=== PATIENT | female | born 1995 | race Caucasian/White ===

== ENCOUNTER 2016-12-16 12:19 | Emergency (ER) | payer SELFPAY ==
[2016-12-16] MEDS ORDERED: METOCLOPRAMIDE HCL 10 MG TABLET PO ONE (12:29)
--- NOTE | 2016-12-16 12:29 | ER Document Report ---
ED Medical Screen (RME) - General Stated Complaint: VOMITING Time seen by provider: 12:27 Mode of Arrival: Ambulatory Information source: Patient Notes: 21-year-old female presents to ED for vomiting hot and cold, and denies fever for 2-3 weeks. Last menstrual period 10/25/2017 I have greeted and performed a rapid initial assessment of this patient. A comprehensive ED assessment and evaluation of the patient, analysis of test results and completion of medical decision making process will be conducted by an additional ED providers. Physical Exam - Vital signs Vitals: Temp Pulse Resp BP Pulse Ox 97.9 F 65 16 116/63 100 12/16/16 12:25 12/16/16 12:25 12/16/16 12:25 12/16/16 12:25 12/16/16 12:25 Course - Vital Signs Vital signs: Temp Pulse Resp BP Pulse Ox 97.9 F 65 16 116/63 100 12/16/16 12:25 12/16/16 12:25 12/16/16 12:25 12/16/16 12:25 12/16/16 12:25
[2016-12-16 13:07] LABS: ABSOLUTE BASOPHILS # (AUTO) 0.1 10^3/uL (0.0-0.2); ABSOLUTE EOSINOPHILS # (AUTO) 0.1 10^3/uL (0.0-0.6); ABSOLUTE LYMPHOCYTES (AUTO) 1.3 10^3/uL (0.5-4.7); ABSOLUTE MONOCYTES (AUTO) 0.5 10^3/uL (0.1-1.4); ABSOLUTE NEUT (AUTO) 4.6 10^3/uL (1.7-8.2); BASOPHILS % (AUTO) 0.9 % (0-2); EOSINOPHILS % (AUTO) 1.7 % (0-6); HEMOGLOBIN 12.4 g/dL (12.0-15.5); HGB HCT DIFFERENCE -0.8; MEAN CORPUSCULAR HEMOGLOBIN 27.5 pg (27.0-33.4); MEAN CORPUSCULAR HGB CONC 32.5 g/dL (32.0-36.0); MEAN CORPUSCULAR VOLUME 84 fl (80-97); MONOCYTES % (AUTO) 7.8 % (3-13); RED CELL DISTRIBUTION WIDTH 14.8 % (11.5-14.0); SEGMENTED NEUTROPHILS % (AUTO) 69.6 % (42-78); WHITE BLOOD COUNT 6.6 10^3/uL (4.0-10.5)
[2016-12-16 13:21] LABS: APPEARANCE,URINE SLIGHTLY-CLOUDY; BILIRUBIN,URINE NEGATIVE (NEGATIVE); GLUCOSE, URINE NEGATIVE (NEGATIVE); KETONES,URINE TRACE mg/dL (NEGATIVE); LEUKOCYTE ESTERASE,URINE SMALL (NEGATIVE); NITRITE,URINE POSITIVE (NEGATIVE); PROTEIN,URINE NEGATIVE (NEGATIVE); URINE SPECIFIC GRAVITY 1.017
[2016-12-16 13:22] LABS: ALANINE AMINOTRANSFERASE 21 U/L (9-52); ALBUMIN 3.5 g/dL (3.5-5.0); ALKALINE PHOSPHATASE 52 U/L (38-126); ANION GAP 8 (5-19); ASPARTATE AMINO TRANSFERASE 15 U/L (14-36); BILIRUBIN,TOTAL 0.5 mg/dL (0.2-1.3); BLOOD UREA NITROGEN 5 mg/dL (7-20); CALCIUM 9.8 mg/dL (8.4-10.2); CARBON DIOXIDE 25 mmol/L (22-30); CHLORIDE 105 mmol/L (98-107); CREATININE RESULT 0.77 mg/dL (0.52-1.25); GLUCOSE 78 mg/dL (75-110); POTASSIUM 3.9 mmol/L (3.6-5.0); SODIUM 138.2 mmol/L (137-145); TOTAL PROTEIN 6.2 g/dL (6.3-8.2)
[2016-12-16] MEDS ORDERED: NITROFURANTOIN MONOHYD/M-CRYST 100 MG CAPSULE PO ONE (13:23)
--- NOTE | 2016-12-16 13:31 | ER Document Report ---
ED General - General Chief Complaint: Nausea/Vomiting Stated Complaint: VOMITING Mode of Arrival: Ambulatory Information source: Patient Notes: 21-year-old female presents with complaints of nausea vomiting every time she eats. pt denies any urinary complaints, denies any fevers or chills. TRAVEL OUTSIDE OF THE [place] IN LAST 30 DAYS: No - HPI Onset: Other - 2-3 weeks Onset/Duration: Persistent Quality of pain: Cramping Severity: Mild Pain Level: 1 Associated symptoms: Nausea, Vomiting Exacerbated by: Denies Relieved by: Denies Similar symptoms previously: No Recently seen / treated by doctor: No - Related Data Allergies/Adverse Reactions: acetaminophen [From Tylenol] Allergy (Verified 12/16/16 12:29) Past Medical History - General Information source: Patient - Social History Smoking Status: Current Every Day Smoker Cigarette use (# per day): Yes Chew tobacco use (# tins/day): No Smoking Education Provided: Yes - Patient counselled regarding cessation for 4 minutes Frequency of alcohol use: None Drug Abuse: None Family History: Reviewed & Not Pertinent Patient has suicidal ideation: No Patient has homicidal ideation: No Pulmonary Medical History: Reports: Hx Asthma Renal/ Medical History: Denies: Hx Peritoneal Dialysis Past Surgical History: Reports: Hx Orthopedic Surgery - CO[facility]YX Review of Systems - Review of Systems Notes: REVIEW OF SYSTEMS: CONSTITUTIONAL : Denies fever, chills, or sweats. Denies recent illness. EENT: Denies eye, ear, throat, or mouth pain or symptoms. Denies nasal or sinus congestion or discharge. Denies throat, tongue, or mouth swelling or difficulty swallowing. CARDIOVASCULAR: Denies chest pain. Denies palpitations or racing or irregular heart beat. Denies ankle edema. RESPIRATORY: Denies cough, cold, or chest congestion. Denies shortness of breath, difficulty breathing, or wheezing. GASTROINTESTINAL: admits ot abd strickland, nausea vomtiing GENITOURINARY: Denies difficulty urinating, painful urination, burning, frequency, blood in urine, or discharge. FEMALE GENITOURINARY: Denies vaginal bleeding, heavy or abnormal periods, irregular periods. Denies vaginal discharge or odor. MUSCULOSKELETAL: Denies back or neck pain or stiffness. Denies joint pain or swelling. SKIN: Denies rash, lesions or sores. HEMATOLOGIC : Denies easy bruising or bleeding. LYMPHATIC: Denies swollen, enlarged glands. NEUROLOGICAL: Denies confusion or altered mental status. Denies passing out or loss of consciousness. Denies dizziness or lightheadedness. Denies headache. Denies weakness or paralysis or loss of use of either side. Denies problems with gait or speech. Denies sensory loss, numbness, or tingling. Denies seizures. PSYCHIATRIC: Denies anxiety or stress. Denies depression, suicidal ideation, or homicidal ideation. ALL OTHER SYSTEMS REVIEWED AND NEGATIVE. Dictation was performed using [employer] voice recognition software PHYSICAL EXAMINATION: GENERAL: Well-appearing, well-nourished and in no acute distress. HEAD: Atraumatic, normocephalic. EYES: Pupils equal round and reactive to light, extraocular movements intact, conjunctiva are normal. ENT: Nares patent, oropharynx clear without exudates. Moist mucous membranes. NECK: Normal range of motion, supple without lymphadenopathy LUNGS: Breath sounds clear to auscultation bilaterally and equal. No wheezes rales or rhonchi. HEART: Regular rate and rhythm without murmurs ABDOMEN: Soft, nontender, nondistended abdomen. No guarding, no rebound. No masses appreciated. Female : deferred Musculoskeletal: Normal range of motion, no pitting or edema. No cyanosis. NEUROLOGICAL: Cranial nerves grossly intact. Normal speech, normal gait. Normal sensory, motor exams PSYCH: Normal mood, normal affect. SKIN: Warm, Dry, normal turgor, no rashes or lesions noted. Physical Exam - Vital signs Vitals: Temp Pulse Resp BP Pulse Ox 97.9 F 65 16 116/63 100 12/16/16 12:25 12/16/16 12:25 12/16/16 12:25 12/16/16 12:25 12/16/16 12:25 Course - Re-evaluation Re-evalutation: 12/16/16 15:29 pt looks well but noted ot have UTI in , culture ordered, pt started on macrobid, us pending 12/16/16 16:23 Ultrasound consistent with 6 week 5 day . Patient will be discharged home with prenatals smoking cessation follow-up with [facility] After performing a Medical Screening Examination, I estimate there is LOW risk for ACUTE APPENDICITIS, BOWEL OBSTRUCTION, ACUTE CHOLECYSTITIS, PERFORATED DIVERTICULITIS, INCARCERATED HERNIA, PANCREATITIS, PELVIC INFLAMMATORY DISEASE, PERFORATED ULCER, ECTOPIC , or TUBO-OVARIAN ABSCESS, thus I consider the discharge disposition reasonable. Also, there is no evidence or peritonitis , sepsis, or toxicity. The patient and I have discussed the diagnosis and risks , and we agree with discharging home with close follow-up with the understanding that symptoms and presentations can change. We also discussed returning to the Emergency Department immediately if new or worsening symptoms occur. We have discussed the symptoms which are most concerning (e.g., bloody stool, fever, changing or worsening pain, vomiting) that necessitate immediate return. - Vital Signs Vital signs: Temp Pulse Resp BP Pulse Ox 97.9 F 65 16 116/63 100 12/16/16 12:25 12/16/16 12:25 12/16/16 12:25 12/16/16 12:25 12/16/16 12:25 - Laboratory Result Diagrams: 12/16/16 12:40 12/16/16 12:40 Laboratory results interpreted by me: 12/16/16 12/16/16 12/16/16 12:40 12:40 12:40 RDW 14.8 H BUN 5 L Total Protein 6.2 L Serum HCG, Qual POSITIVE H Beta HCG, Quant Urine Ketones Urine Nitrite Urine Urobilinogen Ur Leukocyte Esterase 12/16/16 12/16/16 12:40 12:40 RDW BUN Total Protein Serum HCG, Qual Beta HCG, Quant 11523.00 H Urine Ketones TRACE H Urine Nitrite POSITIVE H Urine Urobilinogen 2.0 H Ur Leukocyte Esterase SMALL H - Diagnostic Test Radiology reviewed: Image reviewed, Reports reviewed Discharge - Discharge Clinical Impression: Encounter for smoking cessation counseling, Nausea/vomiting in , UTI in Condition: Stable Disposition: HOME, SELF-CARE Instructions: Urinary Tract Infection ([facility]) Prescriptions: Promethazine HCl [Phenergan 25 mg Tablet] 25 - 50 mg PO Q4HP PRN #20 tablet PRN Reason: Nitrofurantoin/Nitrofuran Mac [Macrobid 100 mg Capsule] 1 tab PO BID #20 capsule Forms: Smoking Cessation Education Referrals: [facility] [Provider Group] - Follow up tomorrow
[2016-12-16 16:42] VITALS: BP 113/61
== END 2016-12-16 16:41 | disposition home or self-care (01) ==
LOC: ER 12:19
DX: O21.9 Vomiting of pregnancy, unspecified (principal); O99.330 Smoking (tobacco) complicating pregnancy, unspecified trimester; F17.210 Nicotine dependence, cigarettes, uncomplicated; Z71.6 Tobacco abuse counseling; O99.519 Diseases of the respiratory system complicating pregnancy, unspecified trimester; J45.909 Unspecified asthma, uncomplicated; O23.40 Unspecified infection of urinary tract in pregnancy, unspecified trimester; O26.899 Other specified pregnancy related conditions, unspecified trimester; R10.9 Unspecified abdominal pain; Z3A.00 Weeks of gestation of pregnancy not specified; Z88.6 Allergy status to analgesic agent
CPT/HCPCS: 99406; 99284; 36415; 87086; 84702; 84703; 85025; 87088; 80053; 81001; 76817; J8499; 87186

== ENCOUNTER 2017-02-17 15:48 | Emergency (ER) | payer SELFPAY ==
--- NOTE | 2017-02-17 16:37 | ER Document Report ---
ED Medical Screen (RME) - General Stated Complaint: ABDOMINAL PAIN Notes: Patient complains of body aches and abdominal cramping that started this morning. Patient states she is 16 weeks . Patient states she had spotting last week which has resolved. She contacted the health department and they told her to follow up with them if it continued. Denies fever. Patient complains of nausea, denies vomiting or diarrhea. I have greeted and performed a rapid initial assessment of this patient. A comprehensive ED assessment and evaluation of the patient, analysis of test results and completion of the medical decision making process will be conducted by additional ED providers. TRAVEL OUTSIDE OF THE [place] IN LAST 30 DAYS: No - Related Data Allergies/Adverse Reactions: acetaminophen [From Tylenol] Allergy (Verified 02/17/17 16:36) Past Medical History Pulmonary Medical History: Reports: Hx Asthma Renal/ Medical History: Denies: Hx Peritoneal Dialysis Past Surgical History: Reports: Hx Orthopedic Surgery - COCCYX Physical Exam - Respiratory Respiratory status: No respiratory distress Breath sounds: Normal
[2017-02-17 17:10] LABS: ABSOLUTE MONOCYTES (AUTO) 0.6 10^3/uL (0.1-1.4); BASOPHILS % (AUTO) 0.2 % (0-2); EOSINOPHILS % (AUTO) 0.5 % (0-6); HEMATOCRIT 31.8 % (36.0-47.0); HGB HCT DIFFERENCE 1.2; LYMPHOCYTES % (AUTO) 11.1 % (13-45); MEAN CORPUSCULAR HEMOGLOBIN 28.7 pg (27.0-33.4); MEAN CORPUSCULAR HGB CONC 34.7 g/dL (32.0-36.0); MEAN CORPUSCULAR VOLUME 83 fl (80-97); MONOCYTES % (AUTO) 7.2 % (3-13); RED BLOOD COUNT 3.85 10^6/uL (3.72-5.28); RED CELL DISTRIBUTION WIDTH 13.9 % (11.5-14.0); WHITE BLOOD COUNT 8.7 10^3/uL (4.0-10.5)
[2017-02-17 17:32] LABS: ALANINE AMINOTRANSFERASE 17 U/L (9-52); ALBUMIN 3.8 g/dL (3.5-5.0); ALKALINE PHOSPHATASE 49 U/L (38-126); ANION GAP 11 (5-19); ASPARTATE AMINO TRANSFERASE 12 U/L (14-36); BILIRUBIN,DIRECT 0.1 mg/dL (0.0-0.4); BILIRUBIN,TOTAL 0.5 mg/dL (0.2-1.3); BLOOD UREA NITROGEN 3 mg/dL (7-20); CARBON DIOXIDE 21 mmol/L (22-30); CHLORIDE 106 mmol/L (98-107); CREATININE RESULT 0.52 mg/dL (0.52-1.25); GLUCOSE 76 mg/dL (75-110); LIPASE 38.4 U/L (23-300); POTASSIUM 3.9 mmol/L (3.6-5.0); SODIUM 137.6 mmol/L (137-145); TOTAL PROTEIN 6.6 g/dL (6.3-8.2)
[2017-02-17 17:37] LABS: APPEARANCE,URINE SLIGHTLY-CLOUDY; BILIRUBIN,URINE NEGATIVE (NEGATIVE); GLUCOSE, URINE NEGATIVE (NEGATIVE); KETONES,URINE 20 mg/dL (NEGATIVE); LEUKOCYTE ESTERASE,URINE SMALL (NEGATIVE); NITRITE,URINE NEGATIVE (NEGATIVE); PROTEIN,URINE NEGATIVE (NEGATIVE)
[2017-02-17] MEDS ORDERED: NORMAL SALINE 1000 ML 1,000 ML IV ONE (22:20)
[2017-02-18] MEDS ORDERED: CEPHALEXIN 500 MG CAPSULE PO ONE (00:23)
--- NOTE | 2017-02-18 00:31 | ER Document Report ---
ED General - General Chief Complaint: Abdominal Pain Stated Complaint: ABDOMINAL PAIN Mode of Arrival: Ambulatory Information source: Patient Notes: 21 y/o F presents to ED c/o generalized body aches, mid lower abd pain, and lower back pain since this morning. Pt reports is approximately 16 wks , G1, LMP 10/25/16. Reports had light vaginal spotting for 1 day last week that has resolved. Reports symptoms began this morning with generalized body aches and subsequent development of lower abd/suprapubic pain that radiates to her back. Denies dysuria but states pain seems to be worse with urination. Denies fever, vaginal discharge, n/v, chest pain, sob. TRAVEL OUTSIDE OF THE [place] IN LAST 30 DAYS: No - HPI Onset: This morning Onset/Duration: Persistent Quality of pain: Achy Severity: Mild Pain Level: 2 Associated symptoms: Body/muscle aches Similar symptoms previously: Yes Recently seen / treated by doctor: No - Related Data Allergies/Adverse Reactions: acetaminophen [From Tylenol] Allergy (Verified 02/17/17 16:36) Past Medical History - General Information source: Patient - Social History Smoking Status: Never Smoker Chew tobacco use (# tins/day): No Frequency of alcohol use: None Drug Abuse: None Lives with: Family Family History: Reviewed & Not Pertinent Patient has suicidal ideation: No Patient has homicidal ideation: No Pulmonary Medical History: Reports: Hx Asthma Renal/ Medical History: Denies: Hx Peritoneal Dialysis Past Surgical History: Reports: Hx Orthopedic Surgery - COCCYX - Immunizations Hx Diphtheria, Pertussis, Tetanus Vaccination: Yes Review of Systems - Review of Systems Constitutional: See HPI EENT: No symptoms reported Cardiovascular: No symptoms reported Respiratory: No symptoms reported Gastrointestinal: No symptoms reported Genitourinary: See HPI Female Genitourinary: See HPI Musculoskeletal: No symptoms reported Skin: No symptoms reported Hematologic/Lymphatic: No symptoms reported Neurological/Psychological: No symptoms reported -: Yes All other systems reviewed and negative Physical Exam - Vital signs Vitals: Temp Pulse Resp BP Pulse Ox 99.1 F 102 H 16 109/62 100 02/17/17 16:34 02/17/17 16:34 02/17/17 16:34 02/17/17 16:34 02/17/17 16:34 - General General appearance: Appears well, Alert In distress: None - HEENT Head: Normocephalic, Atraumatic Eyes: Normal Conjunctiva: Normal Pupils: PERRL Ears: Normal External canal: Normal Tympanic membrane: Normal Sinus: Normal Nasal: Normal Mouth/Lips: Normal Mucous membranes: Normal, Moist Pharynx: Normal. No: Blood in hypopharynx, Erythema, Exudate, Peritonsillar abscess, Post nasal drainage, Retropharyngeal abscess, Tonsillar hypertrophy, Uvular edema, Potential airway comprom., Other Neck: Normal. No: Anterior cervical chain, Posterior cervical chain, Lymphadenopathy, Meningismus, Subcutaneous emphysema - Respiratory Respiratory status: No respiratory distress Chest status: Nontender Breath sounds: Normal - CTAB Chest palpation: Normal - Cardiovascular Rhythm: Regular Heart sounds: Normal auscultation Murmur: No Pulses: Normal: Radial, Posterior tibial, Dorsalis pedis Normal capillary refill: Yes - Abdominal Inspection: Normal Distension: No distension Bowel sounds: Normal Tenderness: Tender - mild tenderness with palpation to mid-lower abd/supraubic area.. No: Nontender, McBurney's point, Johnson's sign, Guarding, Rebound, Other Organomegaly: No organomegaly - Back Back: Normal, Nontender. No: CVA tenderness - Extremities General upper extremity: Normal inspection, Nontender, Normal color, Normal ROM , Normal strength, Normal temperature General lower extremity: Normal inspection, Nontender, Normal color, Normal ROM , Normal strength, Normal temperature, Normal weight bearing - Neurological Neuro grossly intact: Yes Cognition: Normal Orientation: AAOx4 Raj Coma Scale Eye Opening: Spontaneous Raj Coma Scale Verbal: Oriented [place] Coma Scale Motor: Obeys Commands Raj Coma Scale Total: 15 Speech: Normal Motor strength normal: LUE, RUE, LLE, RLE Sensory: Normal - Skin Skin Temperature: Warm Skin Moisture: Dry Skin Color: Normal Course - Re-evaluation Re-evalutation: 02/18/17 00:45 Patient hemodynamically stable, in no distress, afebrile. Patient is well- appearing and physical exam is not suggestive of emergent abdominal or infectious etiology at this time. Ultrasound shows living intrauterine at 16 weeks gestation with no significant abnormalities. Leukocyte Estrace and wbc's on UA. Urine culture obtained. Will treat for likely UTI. Patient appears stable for discharge and agrees with home care, follow-up, and ED return precautions. - Vital Signs Vital signs: Temp Pulse Resp BP Pulse Ox 99.1 F 102 H 16 109/63 100 02/18/17 01:22 02/18/17 01:22 02/18/17 01:22 02/18/17 01:22 02/18/17 01:22 - Laboratory Result Diagrams: 02/17/17 16:50 02/17/17 16:50 Laboratory results interpreted by me: 02/17/17 02/17/17 02/17/17 16:50 16:50 16:50 Hgb 11.0 L Hct 31.8 L Seg Neutrophils % 81.0 H Lymphocytes % 11.1 L Carbon Dioxide 21 L BUN 3 L AST 12 L Beta HCG, Quant 84750.00 H Urine Ketones 20 H Urine Urobilinogen 2.0 H Ur Leukocyte Esterase SMALL H - Diagnostic Test Radiology reviewed: Image reviewed, Reports reviewed Discharge - Discharge Clinical Impression: Pelvic pain affecting , antepartum UTI (urinary tract infection) Qualifiers: Urinary tract infection type: site unspecified Hematuria presence: without hematuria Qualified Code(s): N39.0 - Urinary tract infection, site not specified Condition: Stable Disposition: HOME, SELF-CARE Instructions: Abdominal Pain ([facility]), Acetaminophen, Observation for Appendicitis ([facility]), Urinary Tract Infection ([facility]), Nitrofurantoin ([facility]) Additional Instructions: A culture of your urine has been obtained. If bacterial growth is noted that requires a change in your antibiotic regimen you will be contacted within 2 days with instructions on treatment. If you do not receive a call, please call back for results. Drink plenty of fluids. Follow-up with your [facility] this week. Return to the Emergency Department for any worsening symptoms or concerns. Prescriptions: Nitrofurantoin/Nitrofuran Mac [Macrobid 100 mg Capsule] 1 tab PO BID #20 capsule Forms: Return to Work Referrals: [facility] [Provider Group] - Follow up tomorrow
[2017-02-18] MEDS ORDERED: NITROFURANTOIN MONOHYD/M-CRYST 100 MG CAPSULE PO ONE (01:10)
[2017-02-18 01:29] VITALS: BP 109/63
== END 2017-02-18 01:38 | disposition home or self-care (01) ==
LOC: ER 15:48
DX: N39.0 Urinary tract infection, site not specified (principal); R10.2 Pelvic and perineal pain; R10.9 Unspecified abdominal pain; R52 Pain, unspecified; R10.30 Lower abdominal pain, unspecified; M54.5 Low back pain; Z3A.16 16 weeks gestation of pregnancy
CPT/HCPCS: 99284; 36415; 87086; 84702; 83690; 85025; 87088; 80053; 81001; 87186; 87804; 76805; 93976; J7030; J8499

== ENCOUNTER 2017-03-11 16:07 | Observation (INO) | payer SELFPAY ==
[2017-03-11] MEDS ORDERED: PROMETHAZINE HCL 25 MG TABLET PO PRN (16:53)
[2017-03-11] MEDS: RINGERS SOLUTION,LACTATED 1,000 ML IV PRN (17:55)
[2017-03-11] MEDS: OXYCODONE HCL IR 5 MG TABLET PO PRN (17:55)
[2017-03-11] MEDS: CEFTRIAXONE 1 GM/D5W RTU 1 GM/50 ML RTUPB IV SCH (17:56)
[2017-03-11 18:55] LABS: HEMOGLOBIN 9.2 g/dL (12.0-15.5); HGB HCT DIFFERENCE 0.6; MEAN CORPUSCULAR HEMOGLOBIN 27.7 pg (27.0-33.4); MEAN CORPUSCULAR VOLUME 81 fl (80-97); RED BLOOD COUNT 3.32 10^6/uL (3.72-5.28); RED CELL DISTRIBUTION WIDTH 14.1 % (11.5-14.0); WHITE BLOOD COUNT 11.2 10^3/uL (4.0-10.5)
[2017-03-11 19:14] LABS: ALANINE AMINOTRANSFERASE 22 U/L (9-52); ALBUMIN 3.4 g/dL (3.5-5.0); ALKALINE PHOSPHATASE 64 U/L (38-126); ANION GAP 11 (5-19); ASPARTATE AMINO TRANSFERASE 13 U/L (14-36); BILIRUBIN,DIRECT 0.2 mg/dL (0.0-0.4); BILIRUBIN,TOTAL 0.4 mg/dL (0.2-1.3); BLOOD UREA NITROGEN 3 mg/dL (7-20); CALCIUM 9.7 mg/dL (8.4-10.2); CARBON DIOXIDE 22 mmol/L (22-30); CHLORIDE 103 mmol/L (98-107); CREATININE RESULT 0.47 mg/dL (0.52-1.25); GLUCOSE 92 mg/dL (75-110); POTASSIUM 3.9 mmol/L (3.6-5.0); SODIUM 136.4 mmol/L (137-145); TOTAL PROTEIN 6.6 g/dL (6.3-8.2)
[2017-03-11 20:42] LABS: APPEARANCE,URINE CLEAR; BILIRUBIN,URINE NEGATIVE (NEGATIVE); GLUCOSE, URINE NEGATIVE (NEGATIVE); KETONES,URINE NEGATIVE (NEGATIVE); LEUKOCYTE ESTERASE,URINE LARGE (NEGATIVE); NITRITE,URINE NEGATIVE (NEGATIVE); PROTEIN,URINE NEGATIVE (NEGATIVE); UROBILINOGEN,URINE NEGATIVE mg/dL (<2.0)
--- NOTE | 2017-03-11 22:27 | PDOC H&P ---
History of Present Illness Admission Date/PCP: 03/11/17 16:07 Patient complains of: severe UTI sxs x 2 wks. flank pain. fever. some nausea. no vomiting History of Present Illness: KALPANA NARAYAN is a 21 year old female Past Medical History Pulmonary Medical History: Reports: Asthma Psychiatric Medical History: Denies: Depression Past Surgical History Past Surgical History: Reports: Orthopedic Surgery - [facility]YX Social History Information Source: Patient Smoking Status: Former Smoker Last Time Smoked: 11/23/2016 Frequency of Alcohol Use: None Hx Recreational Drug Use: Yes Drugs: Marijuana Hx Prescription Drug Abuse: No Family History Family History: Reviewed & Not Pertinent Parental Family History Reviewed: Yes Children Family History Reviewed: NA Sibling(s) Family History Reviewed.: Yes Medication/Allergy Home Medications: Nitrofurantoin/Nitrofuran Mac [Macrobid 100 mg Capsule] 1 tab PO BID #20 capsule 12/16/16 Vit W-Ca,Fe,FA(<1 mg) [ Vitamins] 1 each PO DAILY #90 tablet Promethazine HCl [Phenergan 25 mg Tablet] 25 - 50 mg PO Q4HP PRN #20 tablet Allergies/Adverse Reactions: acetaminophen [From Tylenol] Allergy (Verified 02/17/17 16:36) Physical Exam - Physical Exam Vital Signs: Temp Pulse Resp BP Pulse Ox 98.6 F 109 H 18 105/54 L 100 03/11/17 19:45 03/11/17 19:45 03/11/17 19:45 03/11/17 19:45 03/11/17 19:45 General appearance: PRESENT: no acute distress Head exam: PRESENT: atraumatic GI/Abdominal exam: PRESENT: soft - gravid, nontender Additional comments: +CVA tenderness over right flank Result Laboratory Results: 03/11/17 18:30 03/11/17 18:30 03/11/17 03/11/17 03/11/17 18:30 18:30 19:55 WBC 11.2 H RBC 3.32 L Hgb 9.2 L Hct 27.0 L MCV 81 MCH 27.7 MCHC 34.0 RDW 14.1 H Plt Count 317 Sodium 136.4 L Potassium 3.9 Chloride 103 Carbon Dioxide 22 Anion Gap 11 BUN 3 L Creatinine 0.47 L Est GFR ( Amer) > 60 Est GFR (Non-Af Amer) > 60 Glucose 92 Calcium 9.7 Total Bilirubin 0.4 AST 13 L ALT 22 Alkaline Phosphatase 64 Total Protein 6.6 Albumin 3.4 L Urine Color YELLOW Urine Appearance CLEAR Urine pH 7.0 Ur Specific [place] 1.010 Urine Protein NEGATIVE Urine Glucose (UA) NEGATIVE Urine Ketones NEGATIVE Urine Blood NEGATIVE Urine Nitrite NEGATIVE Ur Leukocyte Esterase LARGE H Urine WBC (Auto) 32 Urine RBC (Auto) 0 Assessment & Plan - Diagnosis (1) Qualifiers: Weeks of gestation: 19 weeks Qualified Code(s): Z3A.19 - 19 weeks gestation of Is this a current diagnosis for this admission?: Yes (2) Pyelonephritis affecting in second trimester Is this a current diagnosis for this admission?: Yes - Time Time Spent: 30 to 50 Minutes Critical Time spent with patient: Less than 15 minutes Smoking Cessation Education: 3 to 10 minutes Medications reviewed and adjusted accordingly: Yes Anticipated discharge: Home Within: within 24 hours - Inpatient Certification Based on my medical assessment, after consideration of the patient's comorbidities, presenting symptoms, or acuity I expect that the services needed warrant INPATIENT care.: Yes I certify that my determination is in accordance with my understanding of Medicare's requirements for reasonable and necessary INPATIENT services [42 CFR 412.3e].: Yes Medical Necessity: Failure to Improve With Outpatient Therapy, Need for IV Antibiotics, Risk of Complication if Not Cared For in Hospital 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
[2017-03-12] MEDS: OXYCODONE HCL IR 5 MG TABLET PO PRN ×5 (00:40→22:33)
[2017-03-12] MEDS: RINGERS SOLUTION,LACTATED 1,000 ML IV PRN ×3 (00:45→17:48)
[2017-03-12] MEDS: CEFTRIAXONE 1 GM/D5W RTU 1 GM/50 ML RTUPB IV SCH ×2 (05:15→17:41)
[2017-03-12] MEDS ORDERED: GLYCERIN (ADULT) SUPP.RECT PR ONE (13:00)
--- NOTE | 2017-03-12 14:52 | PDOC PROGRESS REPORT ---
Subjective Progress Note for:: 03/12/17 Subjective:: Pt still reports RLQ pain and Right flank pain. She also has not had a BM in approx 2wks or more. She denies f/c/n/v. Physical Exam - Physical Exam Vital Signs: Temp Pulse Resp BP Pulse Ox 98.4 F 97 16 89/45 L 100 03/12/17 12:45 03/12/17 12:45 03/12/17 12:45 03/12/17 12:45 03/12/17 12:45 Intake & Output 03/11/17 03/12/17 03/13/17 06:59 06:59 06:59 Intake Total 1380 Output Total 600 Balance 780 Weight 61.2 kg General appearance: PRESENT: no acute distress, well-developed, well-nourished GI/Abdominal exam: PRESENT: normal bowel sounds, soft, tenderness - RLQ, Right CVAT. ABSENT: distended, firm, guarding, mass, organolmegaly, rebound Rectal exam: PRESENT: deferred Extremities exam: PRESENT: full ROM. ABSENT: calf tenderness, clubbing, pedal edema Neurological exam: PRESENT: alert, awake, oriented to person, oriented to place , oriented to time, oriented to situation, CN II-XII grossly intact. ABSENT: motor sensory deficit Psychiatric exam: PRESENT: appropriate affect, normal mood. ABSENT: homicidal ideation, suicidal ideation Result Laboratory Results: 03/11/17 18:30 03/11/17 18:30 03/11/17 03/11/17 03/11/17 18:30 18:30 19:55 WBC 11.2 H RBC 3.32 L Hgb 9.2 L Hct 27.0 L MCV 81 MCH 27.7 MCHC 34.0 RDW 14.1 H Plt Count 317 Sodium 136.4 L Potassium 3.9 Chloride 103 Carbon Dioxide 22 Anion Gap 11 BUN 3 L Creatinine 0.47 L Est GFR ( Amer) > 60 Est GFR (Non-Af Amer) > 60 Glucose 92 Calcium 9.7 Total Bilirubin 0.4 AST 13 L ALT 22 Alkaline Phosphatase 64 Total Protein 6.6 Albumin 3.4 L Urine Color YELLOW Urine Appearance CLEAR Urine pH 7.0 Ur Specific [place] 1.010 Urine Protein NEGATIVE Urine Glucose (UA) NEGATIVE Urine Ketones NEGATIVE Urine Blood NEGATIVE Urine Nitrite NEGATIVE Ur Leukocyte Esterase LARGE H Urine WBC (Auto) 32 Urine RBC (Auto) 0 Assessment & Plan - Diagnosis (1) Pyelonephritis affecting in second trimester Is this a current diagnosis for this admission?: YesPlan: Pt with continued right flank pain and continued CVAT on Right. Pt with hypotension and no BM in 2 wks. Will continue IVF and try supp and colace to assist with BM that may improve pain as well. Pt has been on abx for some time and preliminary result is Gram Neg rods - will be 24 hours of abx at 1800. - Time Time Spent with patient: 15-24 minutes Critical Time spent with patient: Less than 15 minutes Medications reviewed and adjusted accordingly: Yes Anticipated discharge: Home Within: within 48 hours - Inpatient Certification Based on my medical assessment, after consideration of the patient's comorbidities, presenting symptoms, or acuity I expect that the services needed warrant INPATIENT care.: Yes I certify that my determination is in accordance with my understanding of Medicare's requirements for reasonable and necessary INPATIENT services [42 CFR 412.3e].: Yes Medical Necessity: Failure to Improve With Outpatient Therapy, Need for IV Antibiotics Post Hospital Care: D/C [employer] Supervisor Documentation
[2017-03-12] MEDS ORDERED: HYDROCORTISONE 1% CREAM 28.35 GM TP PRN (16:41)
[2017-03-12] MEDS: DOCUSATE SODIUM 100 MG CAPSULE PO SCH (17:41)
[2017-03-13] MEDS: OXYCODONE HCL IR 5 MG TABLET PO PRN ×2 (03:33→10:18)
[2017-03-13] MEDS: CEFTRIAXONE 1 GM/D5W RTU 1 GM/50 ML RTUPB IV SCH (05:09)
[2017-03-13 09:04] VITALS: BP 94/51
--- NOTE | 2017-03-13 10:36 | PDOC DISCHARGE SUMMARY ---
General - Admit/Disc Date/PCP Admission Date/Primary Care Provider: 03/11/17 16:07 Discharge Date: 03/13/17 - Discharge Diagnosis (1) Is this a current diagnosis for this admission?: YesSummary: dc home undelivered and in stable condition 19w, follow up with [facility] as scheduled medicade pending, f/u with [facility] reviewed warning signs. (2) Pyelonephritis affecting in second trimester Is this a current diagnosis for this admission?: YesSummary: d/c home on macrobid bid X7 days, then nightly colace reviewed warning signs, and constipation comfort measures. Flexeril for discomfort - Additional Information Discharge Diet: Regular Discharge Activity: Activity As Tolerated Home Medications: Vit W-Ca,Fe,FA(<1 mg) [ Vitamins] 1 each PO DAILY #90 tablet Promethazine HCl [Phenergan 25 mg Tablet] 25 - 50 mg PO Q4HP PRN #20 tablet Cyclobenzaprine HCl [Flexeril 5 mg Tablet] 5 mg PO TID #20 tablet 03/13/17 Docusate Sodium [Colace 100 mg Capsule] 100 mg PO BID #60 capsule 03/13/17 Hydrocortisone [Hydrocortisone 1% Cream 28.35 gm] 1 applic TP Q1HP PRN #1 tube 03/13/17 Nitrofurantoin/Nitrofuran Mac [Macrobid 100 mg Capsule] 1 tab PO BID #60 capsule 03/13/17 History of Present Illness History of Present Illness: KALPANA NARAYAN is a 21 year old female Hospital Course Hospital Course: iv abx symptoms resolved VSS, afebrile Physical Exam - Physical Exam Vital Signs: Temp Pulse Resp BP Pulse Ox 98.0 F 84 16 94/51 L 100 03/13/17 07:32 03/13/17 07:32 03/13/17 07:32 03/13/17 07:32 03/13/17 07:32 Intake & Output 03/12/17 03/13/17 03/14/17 06:59 06:59 06:59 Intake Total 1380 1420 Output Total 600 Balance 780 1420 Weight 61.2 kg General appearance: PRESENT: no acute distress Rectal exam: PRESENT: deferred Extremities exam: PRESENT: full ROM Musculoskeletal exam: PRESENT: ambulatory Neurological exam: PRESENT: alert, altered, awake, oriented to person, oriented to place, oriented to time Additional comments: cva tenderness resolved, normal physical exam, states flutters from baby, denies lof, vb, or ctx. Result Laboratory Results: 03/11/17 18:30 03/11/17 18:30 03/11/17 19:55 Clean Catch Midstream Urine Culture - Final Escherichia Coli Esbl Plan Discharge Plan: d/c home undelivered in stable condition f/u at health department [facility]
[2017-03-13] MEDS: DOCUSATE SODIUM 100 MG CAPSULE PO SCH (10:40)
--- NOTE | 2017-03-13 16:46 | L&D General Admission ---
General Admit Datetime Report Generated by CPN: 03/13/2017 16:45 INFORMATION Patient Age: 21 (03/11/2017 16:09:QS system process) CARE Height (in): 61 (03/12/2017 12:15:QS system process) ALLERGIES Medication Allergies: acetaminophen (02/17/2017) (03/11/2017 16:09:QS system process) DEMOGRAPHICS Address: [address] [place] [id number] (03/11/2017 16:09:QS system process) Zipcode: [address] (03/11/2017 16:09:QS system process) Home (03/11/2017 16:09:QS system process) Work (03/11/2017 16:09:QS system process) SSN: [id number] (03/11/2017 16:09:QS system process) Next of Kin Name: VICTOR HUGO THORNE (03/11/2017 16:09:QS system process) Next of Kin (03/11/2017 16:09:QS system process) Next of Kin Relationship: OR (03/11/2017 16:09:QS system process) Date of : 1995 (03/11/2017 16:09:QS system process) Marital Status: Single (03/11/2017 16:09:QS system process) Sex: Female (03/11/2017 16:09:QS system process) Race: (03/11/2017 16:09:QS system process) Ethnicity: Non- or (03/11/2017 16:09:QS system process) Jain: Hindu (03/11/2017 16:09:QS system process) LABS Hemoglobin: 9.2 L (03/11/2017 18:30:QS system process) Hematocrit: 27.0 L (03/11/2017 18:30:QS system process) MCV: 81 (03/11/2017 18:30:QS system process)
--- NOTE | 2017-03-13 22:46 | L&D General Admission ---
General Admit Datetime Report Generated by CPN: 03/13/2017 22:45 INFORMATION Patient Age: 21 (03/11/2017 16:09:QS system process) CARE Height (in): 61 (03/12/2017 12:15:QS system process) ALLERGIES Medication Allergies: acetaminophen (02/17/2017) (03/11/2017 16:09:QS system process) DEMOGRAPHICS Address: [address] [place] [id number] (03/11/2017 16:09:QS system process) Zipcode: [address] (03/11/2017 16:09:QS system process) Home (03/11/2017 16:09:QS system process) Work (03/11/2017 16:09:QS system process) SSN: [id number] (03/11/2017 16:09:QS system process) Next of Kin Name: VICTOR HUGO THORNE (03/11/2017 16:09:QS system process) Next of Kin (03/11/2017 16:09:QS system process) Next of Kin Relationship: OR (03/11/2017 16:09:QS system process) Date of : 1995 (03/11/2017 16:09:QS system process) Marital Status: Single (03/11/2017 16:09:QS system process) Sex: Female (03/11/2017 16:09:QS system process) Race: (03/11/2017 16:09:QS system process) Ethnicity: Non- or (03/11/2017 16:09:QS system process) Lutheran: Temple (03/11/2017 16:09:QS system process) LABS Hemoglobin: 9.2 L (03/11/2017 18:30:QS system process) Hematocrit: 27.0 L (03/11/2017 18:30:QS system process) MCV: 81 (03/11/2017 18:30:QS system process)
--- NOTE | 2017-03-14 04:48 | L&D General Admission ---
General Admit Datetime Report Generated by CPN: 03/14/2017 04:45 INFORMATION Patient Age: 21 (03/11/2017 16:09:QS system process) CARE Height (in): 61 (03/12/2017 12:15:QS system process) ALLERGIES Medication Allergies: acetaminophen (02/17/2017) (03/11/2017 16:09:QS system process) DEMOGRAPHICS Address: [address] [place] [id number] (03/11/2017 16:09:QS system process) Zipcode: [address] (03/11/2017 16:09:QS system process) Home (03/11/2017 16:09:QS system process) Work (03/11/2017 16:09:QS system process) SSN: [id number] (03/11/2017 16:09:QS system process) Next of Kin Name: VICTOR HUGO THORNE (03/11/2017 16:09:QS system process) Next of Kin (03/11/2017 16:09:QS system process) Next of Kin Relationship: OR (03/11/2017 16:09:QS system process) Date of : 1995 (03/11/2017 16:09:QS system process) Marital Status: Single (03/11/2017 16:09:QS system process) Sex: Female (03/11/2017 16:09:QS system process) Race: (03/11/2017 16:09:QS system process) Ethnicity: Non- or (03/11/2017 16:09:QS system process) Alevism: Baptism (03/11/2017 16:09:QS system process) LABS Hemoglobin: 9.2 L (03/11/2017 18:30:QS system process) Hematocrit: 27.0 L (03/11/2017 18:30:QS system process) MCV: 81 (03/11/2017 18:30:QS system process)
--- NOTE | 2017-03-14 04:48 | L&D Admission Assessment ---
LD ADM ASMT Datetime Report Generated by N: 03/14/2017 04:45 Weight (lb): 134 (03/12/2017 12:15:QS system process) Weight (kg): 60.9 (03/12/2017 12:15:QS system process)
--- NOTE | 2017-03-14 10:46 | L&D Admission Assessment ---
LD ADM ASMT Datetime Report Generated by CPN: 03/14/2017 10:45 Weight (lb): 134 (03/12/2017 12:15:QS system process) Weight (kg): 60.9 (03/12/2017 12:15:QS system process)
--- NOTE | 2017-03-14 10:46 | L&D General Admission ---
General Admit Datetime Report Generated by CPN: 03/14/2017 10:45 INFORMATION Patient Age: 21 (03/11/2017 16:09:QS system process) CARE Height (in): 61 (03/12/2017 12:15:QS system process) ALLERGIES Medication Allergies: acetaminophen (02/17/2017) (03/11/2017 16:09:QS system process) DEMOGRAPHICS Address: [address] [place] [id number] (03/11/2017 16:09:QS system process) Zipcode: [address] (03/11/2017 16:09:QS system process) Home (03/11/2017 16:09:QS system process) Work (03/11/2017 16:09:QS system process) SSN: [id number] (03/11/2017 16:09:QS system process) Next of Kin Name: VICTOR HUGO THORNE (03/11/2017 16:09:QS system process) Next of Kin (03/11/2017 16:09:QS system process) Next of Kin Relationship: OR (03/11/2017 16:09:QS system process) Date of : 1995 (03/11/2017 16:09:QS system process) Marital Status: Single (03/11/2017 16:09:QS system process) Sex: Female (03/11/2017 16:09:QS system process) Race: (03/11/2017 16:09:QS system process) Ethnicity: Non- or (03/11/2017 16:09:QS system process) Amish: Zoroastrian (03/11/2017 16:09:QS system process) LABS Hemoglobin: 9.2 L (03/11/2017 18:30:QS system process) Hematocrit: 27.0 L (03/11/2017 18:30:QS system process) MCV: 81 (03/11/2017 18:30:QS system process)
== END 2017-03-13 12:51 | disposition home or self-care (01) ==
LOC: 2N 16:07 → INTOOBSV 16:07 → 2S 03-12 13:53
PROVIDERS: ADMIT Obstetrics & Gynecology; ATTEND Obstetrics & Gynecology
DX: O23.02 Infections of kidney in pregnancy, second trimester (principal); Z3A.19 19 weeks gestation of pregnancy; O26.52 Maternal hypotension syndrome, second trimester; Z87.891 Personal history of nicotine dependence
CPT/HCPCS: 36415; 87086; 85027; 87088; 80053; 81001; 87186; J3490 ×2; J7120 ×2; J0696 ×3; G0378; G0379

== ENCOUNTER → 2017-03-18 | Outpatient (CLI) | payer SELFPAY | LOC: RAD 13:58 | PROVIDERS: ATTEND Nurse Practitioner Women's Health | DX: Z34.02 Encounter for supervision of normal first pregnancy, second trimester (principal) | CPT/HCPCS: 76805 ==

== ENCOUNTER 2017-04-30 21:34 | Outpatient (CLI) | payer MEDICAID ==
[2017-04-30 22:12] LABS: APPEARANCE,URINE CLEAR; BILIRUBIN,URINE NEGATIVE (NEGATIVE); GLUCOSE, URINE NEGATIVE (NEGATIVE); KETONES,URINE NEGATIVE (NEGATIVE); LEUKOCYTE ESTERASE,URINE NEGATIVE (NEGATIVE); NITRITE,URINE NEGATIVE (NEGATIVE); PROTEIN,URINE NEGATIVE (NEGATIVE); URINE SPECIFIC GRAVITY 1.013; UROBILINOGEN,URINE NEGATIVE mg/dL (<2.0)
[2017-04-30 22:13] LABS: BACTERIA,URINE 2+ /HPF; RBC,URINE 0-1 /HPF
[2017-04-30 22:25] LABS: URINE BARBITURATES SCREEN NEGATIVE; URINE METHADONE SCREEN NEGATIVE; URINE OPIATES LOW NEGATIVE; URINE PHENCYCLIDINE SCREEN NEGATIVE
--- NOTE | 2017-04-30 23:03 | RADIOLOGY REPORT (SQ) ---
EXAM DESCRIPTION: U/S OB LIMITED COMPLETED DATE/TIME: 04/30/2017 10:52 pm REASON FOR STUDY: contractions; cervical length COMPARISON: 03/18/2017. TECHNIQUE: Limited transvaginal grayscale ultrasound for evaluation of specific requested obstetrica l parameters. LIMITATIONS: None. FINDINGS: CERVICAL LENGTH: 2.6 cm. Closed. FHR: 147 beats per minute. PRESENTATION: Cephalic. OTHER: No other significant findings. IMPRESSION: LIMITED OBSTETRICAL ULTRASOUND WITH MEASURED PARAMETERS DELINEATED ABOVE. Trimester of : Second trimester - 13 weeks 1 day to 27 weeks 6 days. TECHNICAL DOCUMENTATION: JOB ID: [id number] [employer]- All Rights Reserved
== END 2017-04-30 23:29 | disposition home or self-care (01) ==
LOC: LC 21:34
PROVIDERS: ATTEND Obstetrics & Gynecology
PROC: 4A1HXCZ Monitoring of Products of Conception, Cardiac Rate, External Approach (ICD-10-PCS; principal; 2017-04-30)
DX: O47.02 False labor before 37 completed weeks of gestation, second trimester (principal); Z3A.27 27 weeks gestation of pregnancy
CPT/HCPCS: 76815; 80307; 81001

== ENCOUNTER 2017-06-28 00:13 | Outpatient (CLI) | payer MEDICAID ==
[2017-06-28 00:52] LABS: AMNISURE (ROM) NEGATIVE (NEGATIVE)
[2017-06-28] MEDS ORDERED: HYDROXYZINE PAMOATE 50 MG CAPSULE PO ONE (01:02)
[2017-06-28] MEDS ORDERED: HYDROXYZINE PAMOATE 50 MG CAPSULE ONE (01:07)
[2017-06-28 01:28] LABS: APPEARANCE,URINE CLEAR; BILIRUBIN,URINE NEGATIVE (NEGATIVE); GLUCOSE, URINE NEGATIVE (NEGATIVE); KETONES,URINE NEGATIVE (NEGATIVE); LEUKOCYTE ESTERASE,URINE NEGATIVE (NEGATIVE); NITRITE,URINE NEGATIVE (NEGATIVE); PROTEIN,URINE NEGATIVE (NEGATIVE); URINE SPECIFIC GRAVITY 1.011; UROBILINOGEN,URINE NEGATIVE mg/dL (<2.0)
--- NOTE | 2017-06-28 01:50 | Non Stress Test Report ---
Non Stress Test Datetime Report Generated by CPN: 06/28/2017 01:50 INDICATION Indication for Study: Other Indication for Study (NST) Other: labor check URINE RESULTS Urine Protein, NST: Negative Urine Ketones - NST: Negative Urine Glucose - NST: Negative Urine Blood - NST: Negative MONITORING Monitor Explained: Monitor Explained; Test Explained; Patient Verbalized Understanding Time off Monitor: 06/28/2017 01:18 NST INTERVENTIONS NST Interventions: PO Hydration Physician Notified NST: Melvin BABY A: [id number] BABY A Movement : Present Accelerations : 15X15 Decelerations : None Variability : Moderate 6-25bpm NST Review: Meets Criteria for Reactive NST NST Results: Reactive NST REPORT Report Trigger: Send Report
[2017-06-28 01:59] LABS: URINE BARBITURATES SCREEN NEGATIVE; URINE METHADONE SCREEN NEGATIVE; URINE OPIATES LOW NEGATIVE; URINE PHENCYCLIDINE SCREEN NEGATIVE
== END 2017-06-28 01:30 | disposition home or self-care (01) ==
LOC: LC 00:13
PROVIDERS: ATTEND Obstetrics & Gynecology
DX: O47.03 False labor before 37 completed weeks of gestation, third trimester (principal); Z3A.35 35 weeks gestation of pregnancy
CPT/HCPCS: 84112; 81001; 80307; J3490

== ENCOUNTER 2017-08-09 10:08 | Inpatient (IN) | payer MEDICAID ==
[2017-08-09 10:38] LABS: APPEARANCE,URINE CLEAR; BILIRUBIN,URINE NEGATIVE (NEGATIVE); GLUCOSE, URINE NEGATIVE (NEGATIVE); KETONES,URINE NEGATIVE (NEGATIVE); LEUKOCYTE ESTERASE,URINE NEGATIVE (NEGATIVE); NITRITE,URINE NEGATIVE (NEGATIVE); PROTEIN,URINE NEGATIVE (NEGATIVE); URINE SPECIFIC GRAVITY 1.008; UROBILINOGEN,URINE NEGATIVE mg/dL (<2.0)
[2017-08-09 10:43] LABS: AMNISURE (ROM) POSITIVE (NEGATIVE)
[2017-08-09 11:06] LABS: URINE BARBITURATES SCREEN NEGATIVE; URINE METHADONE SCREEN NEGATIVE; URINE OPIATES LOW NEGATIVE; URINE PHENCYCLIDINE SCREEN NEGATIVE
[2017-08-09 11:29] LABS: ABSOLUTE EOSINOPHILS # (AUTO) 0.1 10^3/uL (0.0-0.6); ABSOLUTE LYMPHOCYTES (AUTO) 0.9 10^3/uL (0.5-4.7); ABSOLUTE MONOCYTES (AUTO) 0.5 10^3/uL (0.1-1.4); BASOPHILS % (AUTO) 0.5 % (0-2); EOSINOPHILS % (AUTO) 2.7 % (0-6); HEMATOCRIT 34.9 % (36.0-47.0); HEMOGLOBIN 11.9 g/dL (12.0-15.5); HGB HCT DIFFERENCE 0.8; LYMPHOCYTES % (AUTO) 16.9 % (13-45); MEAN CORPUSCULAR HEMOGLOBIN 26.2 pg (27.0-33.4); MEAN CORPUSCULAR HGB CONC 34.1 g/dL (32.0-36.0); MEAN CORPUSCULAR VOLUME 77 fl (80-97); MONOCYTES % (AUTO) 9.4 % (3-13); RED BLOOD COUNT 4.54 10^6/uL (3.72-5.28); RED CELL DISTRIBUTION WIDTH 15.6 % (11.5-14.0); SEGMENTED NEUTROPHILS % (AUTO) 70.5 % (42-78); WHITE BLOOD COUNT 5.6 10^3/uL (4.0-10.5)
[2017-08-09] MEDS ORDERED: FENTANYL CITRATE INJ/PF 100 MCG/2 ML AMPUL ONE ×3 (11:37→15:57)
[2017-08-09] MEDS ORDERED: RINGERS SOLUTION,LACTATED 1,000 ML IV PRN (11:42)
[2017-08-09] MEDS ORDERED: MISOPROSTOL 0.2 MG TABLET ONE (11:42)
[2017-08-09] MEDS ORDERED: LIDOCAINE 1% INJ-PF (10 MG/ML) 30 ML SDV ONE (11:42)
[2017-08-09] MEDS ORDERED: OXYTOCIN/NORMAL SALINE 0 UNIT/0 ML RTUINJ ONE (11:42)
[2017-08-09] MEDS ORDERED: EPHEDRINE SULFATE INJ 50 MG/1 ML AMPULE ONE (12:16)
[2017-08-09] MEDS ORDERED: FENTANYL/BUPIVACAINE/NS/PF 0 MCG/0 ML RTUINJ EPI ONE (12:17)
[2017-08-09] MEDS ORDERED: PHENYLEPHRINE HCL INJ/PF 10 MG/1 ML SDV ONE (12:17)
[2017-08-09] MEDS ORDERED: BUPIVACAINE HCL 0.25 % INJ/PF (2.5 MG/1 ML) 30 ML VIAL ONE (12:17)
[2017-08-09] MEDS ORDERED: ACETAMINOPHEN 325 MG TABLET ONE (15:03)
[2017-08-09 15:42] LABS: APPEARANCE,URINE CLEAR; BILIRUBIN,URINE NEGATIVE (NEGATIVE); GLUCOSE, URINE NEGATIVE (NEGATIVE); KETONES,URINE NEGATIVE (NEGATIVE); LEUKOCYTE ESTERASE,URINE NEGATIVE (NEGATIVE); NITRITE,URINE NEGATIVE (NEGATIVE); PROTEIN,URINE NEGATIVE (NEGATIVE); URINE SPECIFIC GRAVITY 1.009; UROBILINOGEN,URINE NEGATIVE mg/dL (<2.0)
--- NOTE | 2017-08-09 16:10 | L&D Progress Notes ---
PROGRESS NOTES Datetime Report Generated by CPN: 08/09/2017 16:09 PROGRESS NOTE Procedures: Scalp Electrode Comment: Difficulty monitoring externally noted so FSE applied. Awaiting epidural....will augment with pit when in place. VAGINAL EXAM Dilatation: 9 Effacement: 100 Station: 1 MEMBRANES Membranes: Ruptured Amniotic Fluid Color: Clear FETUS A Presentation: Vertex SIGNATURE SIGNATURE: [id number];[id number] SIGNATURE: [id number] Signature: with User ID: [email or web address]
[2017-08-09] MEDS ORDERED: OXYTOCIN/NORMAL SALINE 20 UNIT/1,000 ML RTUINJ ONE (16:30)
[2017-08-09] MEDS ORDERED: ACETAMINOPHEN WITH CODEINE #3 TABLET ONE (17:16)
[2017-08-09] MEDS ORDERED: ZOLPIDEM TARTRATE 5 MG TABLET PO PRN (19:12)
[2017-08-09] MEDS ORDERED: BENZOCAINE/MENTHOL AEROSOL SPRAY 56 ML TOP PRN (19:12)
[2017-08-09] MEDS ORDERED: DIBUCAINE 1% OINTMENT 28 GM TP PRN (19:12)
[2017-08-09] MEDS ORDERED: MEASLES,MUMPS&RUBELLA VACC/PF 0.5 ML VIAL SUBCUT PRN (19:12)
[2017-08-09] MEDS ORDERED: OXYTOCIN/NORMAL SALINE 20 UNIT/1,000 ML RTUINJ IV PRN (19:12)
[2017-08-09] MEDS ORDERED: DIPH/PERTUSS(ACELL)/TETANUS VAC/PF 0.5 ML SYR (>=10YO) IM PRN (19:12)
--- NOTE | 2017-08-09 19:42 | Delivery Summary ---
Del Sum A-C Datetime Report Generated by CPN: 08/09/2017 19:42 DELIVERY PERSONNEL DELIVERY PERSONNEL: [id number] Delivery Doctor:: Karlee Knapp MD Labor and Delivery Nurse:: Naya Purdy RNentry manager Nurse:: Gisela Jimenez RN (Annotations: Data stored by [facility] on behalf of user) MATERNAL INFORMATION Delivery Anesthesia: None Medications After Delivery: Pitocin Bolus-Please Comment Meds After Delivery Comment: Pitocin 20 units in 1000mL Estimated Blood Loss (ml): 200 Maternal Complications: None Provider Comments: Pt progressed to over intact periineum of male infant with apgars 9 and 9. Head delivered OA. Nuchal cord x1 reduced. Shoulders and body delivered easily. COAL CARRIER/OP bulb suctioned. Cord clamped and cut. Placenta spont and intact. Mom and baby doing well. LABOR SUMMARY EDC: 08/06/2017 00:00 No. Babies in Womb: 1 Labor Anesthesia: None LABOR INFORMATION Onset of Labor: 08/09/2017 05:30 Complete Dilatation: 08/09/2017 16:33 Oxytocin: N/A Group B Beta Strep: Unknown Antibiotics # of Doses: 0 Steroids Given: None Reason Steroids Not Administered: Not Applicable MEMBRANES Membranes Rupture Method: Spontaneous Rupture of Membranes: 08/09/2017 05:30 Length of Rupture (hr): 11.45 Amniotic Fluid Color: Light Meconium Amniotic Fluid Amount: Moderate STAGES OF LABOR Stage 1 hr: 11 Stage 1 min: 3 Stage 2 hr: 0 Stage 2 min: 24 Stage 3 hr: 0 Stage 3 min: 3 Total Time in Labor hr: 11 Total Time in Labor min: 30 VAGINAL DELIVERY Episiotomy: None Laceration Extension: N/A Laceration Type: None BABY A INFORMATION Delivery Date/Time: 08/09/2017 16:57 Method of Delivery: Vaginal Born in Route : No : N/A Forceps: N/A Vacuum Extraction: N/A Shoulder Dystocia : No PRESENTATION/POSITION BABY A Presentation: Cephalic Cephalic Presentation: Vertex Vertex Position: Left Occipital Anterior Breech Presentation: N/A PLACENTA INFORMATION BABY A Placenta Delivery Time : 08/09/2017 17:00 Placenta Method of Delivery: Spontaneous Placenta Status: Delivered SCORES BABY A Heart Rate 1 min: >100 bpm Resp Effort 1 min: Good Cry Reflex Irritability 1 min: Cough or Sneeze or Pulls Away Muscle Tone 1 min: Active Motion Color 1 min: Body [place], Extremities Blue Resuscitation Effort 1 min: Tactile Stimulation SCORE 1 MIN: 9 Heart Rate 5 min: >100 bpm Resp Effort 5 min: Good Cry Reflex Irritability 5 min: Cough or Sneeze or Pulls Away Muscle Tone 5 min: Active Motion Color 5 min: Body [place], Extremities Blue Resuscitation Effort 5 min: Tactile Stimulation SCORE 5 MIN: 9 INFANT INFORMATION BABY A Gestational Age at Delivery: 40.3 Gestational Status: Full Term- 39- 40.6 Weeks Outcome : Liveborn Infant Condition : Stable Sex: Male IDENTIFICATION BABY A Infant Verification Date/Time: 08/09/2017 17:32 ID Band Number: [id number] Mother's Name Verified: Yes Infant RN Verifying : H. Gurwinder, RN and B. Dianady, RN WEIGHT/LENGTH BABY A Infant Birthweight (gm): 2910 Weight (lb): 6 Infant Weight (oz): 7 Length (in): 19.25 Infant Length (cm): 48.90 CORD INFORMATION BABY A No. Cord Vessels: 3 Nuchal Cord : Around Neck x1, Loose Cord Blood Taken: Yes-For Eval (Mom's Blood Type - or O+) Suction: Mouth; Nose ASSESSMENT BABY A Infant Complications: None Physical Findings at Delivery: Within Normal Limits Infant Respirations: Appears Normal Skin to Skin: Yes Skin to Skin Time (min): 60 Director Of Contracts/ALS Called : No Care By: Chip Jimenez Transferred To: Remains with Mother SIGNATURES Signature: with User ID: [email or web address]
[2017-08-09] MEDS ORDERED: IBUPROFEN 800 MG TABLET ONE (19:53)
--- NOTE | 2017-08-09 21:12 | Admission Physical ---
Datetime Report Generated by CPN: 08/09/2017 21:12 CURRENT ADMISSION Chief Complaint: Uterine Contractions; Suspected Ruptured Membranes Admit Plan: Initiate Labor Protocol ALLERGIES Medication Allergies: Yes Medication Allergies: No Known Allergies (08/09/2017) Medication Allergies: acetaminophen (04/30/2017) Medication Allergies: acetaminophen (02/17/2017) Latex: No Latex Allergies OBSTETRICAL HISTORY EDC: 08/06/2017 00:00 : 1 Para: 0 Term: 0 : 0 SAB: 0 IAB: 0 Ectopic: 0 Livin Cesareans: 0 VBACs: 0 Multiple Births: 0 Gestational Diabetes: No Rh Sensitization: No Incompetent Cervix: No JESSICA: No Infertility: No ART Treatment: No Uterine Anomaly: No IUGR: No Hx Previous C/S: No Macrosomia: No Hx Loss/Stillborn: No PIH: No Hx : No Placenta Previa/Abruption: No Depression/PP Depression: No PTL/PROM: No Post Hemorrhage: No Current Procedures: Ultrasound Obstetrical History Comments: G1 - current SEE RECORDS Alcohol: Yes Alcohol Frequency: Occasional Advised to Stop: Yes Alcohol Comments: Wine Last Thursday Marijuana : No Cocaine: No Other Illicit Drugs: No Cigarettes: Former Smoker. 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 Surgery: No Heart Disease: No Hosp/Surgery: Yes Autoimmune Disorder: No Anesthetic Complications: No Kidney Disease: No Abnormal Pap Smear: No Neuro/Epilepsy: No Psychiatric Disorders: No Other Medical Diseases: No Hepatitis/Liver Disease: No Significant Family History: No Varicosities/Phlebitis: No Trauma/Violence : No Thyroid Dysfunction: No Medical History Comments: Abscessremovedon tail bone in 2006 INFECTIOUS HISTORY Gonorrhea: No Genital Herpes: No Chlamydia: No Tuberculosis: No Syphilis: No Hepatitis: No HIV/AIDS Exposure: No Rash or Viral Illness: No HPV: No PHYSICAL EXAM General: Normal HEENT: Normal Neurologic: Normal Thyroid: Normal Heart: Normal Lungs: Normal Breast: Normal Back: Normal Abdomen: Normal Genitourinary Exam: Abnormal Extremities: Normal DTRs: Normal Pelvic Type: Adequate Physical Exam Comments: 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
[2017-08-09] MEDS: ACETAMINOPHEN WITH CODEINE #3 TABLET PO PRN (21:52)
[2017-08-09] MEDS: IBUPROFEN 800 MG TABLET PO SCH (22:05)
[2017-08-10] MEDS: ACETAMINOPHEN WITH CODEINE #3 TABLET PO PRN ×3 (02:57→15:43)
[2017-08-10] MEDS: IBUPROFEN 800 MG TABLET PO SCH ×3 (05:03→21:31)
[2017-08-10 07:43] LABS: HGB HCT DIFFERENCE 1.1; MEAN CORPUSCULAR HEMOGLOBIN 26.7 pg (27.0-33.4); MEAN CORPUSCULAR HGB CONC 34.4 g/dL (32.0-36.0); MEAN CORPUSCULAR VOLUME 78 fl (80-97); RED BLOOD COUNT 3.61 10^6/uL (3.72-5.28); RED CELL DISTRIBUTION WIDTH 15.4 % (11.5-14.0)
[2017-08-10 07:54] LABS: HEMOGLOBIN 9.7 g/dL (12.0-15.5)
[2017-08-10] MEDS: SENNOSIDES/DOCUSATE 8.6-50 MG 1 EACH TABLET PO SCH (09:48)
[2017-08-10] MEDS: PRENATAL VITAMIN W-O CA NO5/FE FUMARATE/FA CAPSULE PO SCH (09:49)
[2017-08-10] MEDS: FERROUS SULFATE 325 MG TABLET PO SCH ×2 (09:49→18:24)
[2017-08-10] MEDS: DOCUSATE SODIUM 100 MG CAPSULE PO SCH ×2 (09:50→18:25)
--- NOTE | 2017-08-10 10:43 | PDOC PROGRESS REPORT ---
Subjective-OB Subjective: Post Delivery Day: 1 22 year old. Denies any needs at this time, lochia is stable, pain well controlled, voiding without difficulty. Physical Exam (OB) Vital Signs: Temp Pulse Resp BP Pulse Ox 97.8 F 58 L 17 104/67 100 08/10/17 08:21 08/10/17 08:21 08/10/17 08:21 08/10/17 08:21 08/10/17 08:21 Intake & Output 08/09/17 08/10/17 08/11/17 06:59 06:59 06:59 Intake Total 200 Balance 200 Weight 77.3 kg - Lochia Lochia Amount: Small 10-25 ml Lochia Color: Rubra/Red - Abdomen Description: Tender, Soft, Round Hernia Present: No Fundal Description: Firm, Midline Fundal Height: u/u - u/2 Objective-Diagnostic Laboratory: 08/10/17 07:14 08/09/17 08/09/17 08/09/17 10:12 11:15 11:15 WBC 5.6 RBC 4.54 Hgb 11.9 L Hct 34.9 L MCV 77 L MCH 26.2 L MCHC 34.1 RDW 15.6 H Plt Count 167 Seg Neutrophils % 70.5 Lymphocytes % 16.9 Monocytes % 9.4 Eosinophils % 2.7 Basophils % 0.5 Absolute Neutrophils 4.0 Absolute Lymphocytes 0.9 Absolute Monocytes 0.5 Absolute Eosinophils 0.1 Absolute Basophils 0.0 Urine Color YELLOW Urine Appearance CLEAR Urine pH 7.0 [address] 1.008 Urine Protein NEGATIVE Urine Glucose (UA) NEGATIVE Urine Ketones NEGATIVE Urine Blood NEGATIVE Urine Nitrite NEGATIVE Ur Leukocyte Esterase NEGATIVE Urine WBC (Auto) Urine RBC (Auto) Blood Type O POSITIVE Antibody Screen NEGATIVE 08/09/17 08/10/17 14:55 07:14 WBC 11.0 H RBC 3.61 L Hgb 9.7 L D Hct 28.0 L MCV 78 L MCH 26.7 L MCHC 34.4 RDW 15.4 H Plt Count 143 L Seg Neutrophils % Lymphocytes % Monocytes % Eosinophils % Basophils % Absolute Neutrophils Absolute Lymphocytes Absolute Monocytes Absolute Eosinophils Absolute Basophils Urine Color YELLOW Urine Appearance CLEAR Urine pH 7.0 [address] 1.009 Urine Protein NEGATIVE Urine Glucose (UA) NEGATIVE Urine Ketones NEGATIVE Urine Blood NEGATIVE Urine Nitrite NEGATIVE Ur Leukocyte Esterase NEGATIVE Urine WBC (Auto) 1 Urine RBC (Auto) 1 Blood Type Antibody Screen Assessment and Plan(PN) - Assessment and Plan (1) Acute blood loss anemia Is this a current diagnosis for this admission?: Yes Plan: increase dietary iron ferrous sulfate (2) Delivery normal Is this a current diagnosis for this admission?: Yes Plan: routine pp care (3) Qualifiers: Weeks of gestation: unspecified Qualified Code(s): Z34.90 - Encounter for supervision of normal , unspecified, unspecified trimester Is this a current diagnosis for this admission?: Yes - Time Spent with Patient Time with patient: Less than 15 minutes Critical Time spent with patient: Less than 15 minutes Medications reviewed and adjusted accordingly: Yes - Disposition Anticipated Discharge: Home Within: within 24 hours
[2017-08-11] MEDS: ACETAMINOPHEN WITH CODEINE #3 TABLET PO PRN ×2 (04:07→12:07)
[2017-08-11] MEDS: IBUPROFEN 800 MG TABLET PO SCH ×2 (06:05→14:14)
[2017-08-11 08:46] VITALS: BP 114/73
--- NOTE | 2017-08-11 09:54 | PDOC PROGRESS REPORT ---
Subjective-OB Subjective: Post Delivery Day: 22 year old. Denies any needs at this time Doing well, no c/o ready to go home, wants Nexplanon for BC, bottle feeding, has good support at home Physical Exam (OB) Vital Signs: Temp Pulse Resp BP Pulse Ox 98.1 F 74 16 114/73 100 08/11/17 08:17 08/11/17 08:17 08/11/17 08:17 08/11/17 08:17 08/11/17 08:17 Intake & Output 08/10/17 08/11/17 08/12/17 06:59 06:59 06:59 Intake Total 200 Balance 200 Weight 77.3 kg - PIH/Pre-Eclampsia DTR's: 2 + Clonus: Negative Headache: Absent Epigastric Pain: No Visual Changes: No - Lochia Lochia Amount: Small 10-25 ml Lochia Color: Rubra/Red - Abdomen Description: Soft, Round Hernia Present: No Fundal Description: Firm Fundal Height: u/u - u/2 Objective-Diagnostic Laboratory: 08/10/17 07:14 Assessment and Plan(PN) - Assessment and Plan (1) Acute blood loss anemia Is this a current diagnosis for this admission?: Yes (2) Delivery normal Is this a current diagnosis for this admission?: Yes - Time Spent with Patient Time with patient: Less than 15 minutes Medications reviewed and adjusted accordingly: Yes - Disposition Anticipated Discharge: Home Within: Other - home today, [facility] for Nex[facility]on
--- NOTE | 2017-08-11 09:58 | PDOC DISCHARGE SUMMARY ---
Final Diagnosis Discharge Date: 08/11/17 - Final Diagnosis (1) Acute blood loss anemia Is this a current diagnosis for this admission?: Yes (2) Delivery normal Is this a current diagnosis for this admission?: Yes Discharge Data - Discharge Medication Home Medications: Vit Calc,Iron,Folic [ Vitamins] 1 each PO DAILY #90 tablet Ferrous Sulfate [Feosol 325 mg Tablet] 325 mg PO BID #60 tablet 08/11/17 Gestational Age: 40.3 Reason(s) for Admission: Onset of Labor Intrapartum Procedure(s): Spontaneous Vaginal Delivery - [place] Data Baby 1 Male at 1 minute: 9 at 5 minutes: 9 Weight: 2.92 kg Home with Mother: Yes Complications: No - Diagnosis Test Laboratory: Temp Pulse Resp BP Pulse Ox 98.1 F 74 16 114/73 100 08/11/17 08:17 08/11/17 08:17 08/11/17 08:17 08/11/17 08:17 08/11/17 08:17 08/09/17 08/09/17 08/10/17 10:12 11:15 07:14 RBC 4.54 3.61 L Hgb 11.9 L 9.7 L D Hct 34.9 L 28.0 L Urine Opiates Screen NEGATIVE - Discharge information/Instructions Discharge Activity: No Lifting Over 10 Pounds, No Lifting/Push/Pulling, Pelvic Rest Discharge Diet: As Tolerated, Regular Disposition: HOME, SELF-CARE Follow [facility] with: [facility] in: 4, Weeks
[2017-08-11] MEDS: DOCUSATE SODIUM 100 MG CAPSULE PO SCH ×2 (10:04→18:20)
[2017-08-11] MEDS: PRENATAL VITAMIN W-O CA NO5/FE FUMARATE/FA CAPSULE PO SCH (10:04)
[2017-08-11] MEDS: FERROUS SULFATE 325 MG TABLET PO SCH ×2 (10:05→18:20)
[2017-08-11] MEDS: SENNOSIDES/DOCUSATE 8.6-50 MG 1 EACH TABLET PO SCH (10:05)
== END 2017-08-11 19:10 | disposition home or self-care (01) | DRG 775 ==
LOC: LC 10:08 → LR 11:04 → 2S 20:19
PROVIDERS: ADMIT Specialist; ATTEND Specialist
PROC: 10E0XZZ Delivery of Products of Conception, External Approach (ICD-10-PCS; principal; 2017-08-09)
PROC: 4A1H7CZ Monitoring of Products of Conception, Cardiac Rate, Via Natural or Artificial Opening (ICD-10-PCS; 2017-08-09)
PROC: 10H073Z Insertion of Monitoring Electrode into Products of Conception, Via Natural or Artificial Opening (ICD-10-PCS; 2017-08-09)
DX: O69.81X0 Labor and delivery complicated by cord around neck, without compression, not applicable or unspecified (principal); D62 Acute posthemorrhagic anemia; O77.0 Labor and delivery complicated by meconium in amniotic fluid; O99.02 Anemia complicating childbirth; Z3A.40 40 weeks gestation of pregnancy; O99.72 Diseases of the skin and subcutaneous tissue complicating childbirth; L73.2 Hidradenitis suppurativa; Z37.0 Single live birth; Z87.891 Personal history of nicotine dependence
CPT/HCPCS: 36415; 80307; 81001; 81005; 84112; 85025; 85027; 86592; 86850; 86900; 86901; 88307; J2370; J2590; J3010; J3490

== ENCOUNTER → 2017-09-11 | Outpatient (CLI) | payer MEDICAID ==
[2017-09-11 12:08] LABS: ABSOLUTE EOSINOPHILS # (AUTO) 0.2 10^3/uL (0.0-0.6); ABSOLUTE LYMPHOCYTES (AUTO) 1.5 10^3/uL (0.5-4.7); ABSOLUTE MONOCYTES (AUTO) 0.3 10^3/uL (0.1-1.4); ABSOLUTE NEUT (AUTO) 2.8 10^3/uL (1.7-8.2); BASOPHILS % (AUTO) 0.9 % (0-2); EOSINOPHILS % (AUTO) 4.2 % (0-6); HEMATOCRIT 37.7 % (36.0-47.0); HEMOGLOBIN 12.6 g/dL (12.0-15.5); HGB HCT DIFFERENCE 0.1; LYMPHOCYTES % (AUTO) 30.1 % (13-45); MEAN CORPUSCULAR HEMOGLOBIN 25.4 pg (27.0-33.4); MEAN CORPUSCULAR HGB CONC 33.3 g/dL (32.0-36.0); MEAN CORPUSCULAR VOLUME 76 fl (80-97); MONOCYTES % (AUTO) 6.1 % (3-13); RED BLOOD COUNT 4.94 10^6/uL (3.72-5.28); RED CELL DISTRIBUTION WIDTH 15.6 % (11.5-14.0); SEGMENTED NEUTROPHILS % (AUTO) 58.7 % (42-78); WHITE BLOOD COUNT 4.8 10^3/uL (4.0-10.5)
== END ==
LOC: OD 11:25
PROVIDERS: ATTEND Obstetrics & Gynecology
DX: Z39.2 Encounter for routine postpartum follow-up (principal)
CPT/HCPCS: 36415; 84702; 85025

== ENCOUNTER 2017-11-23 10:16 | Emergency (ER) | payer MEDICAID ==
[2017-11-23] MEDS ORDERED: NORMAL SALINE 1000 ML 1,000 ML IV ONE (11:25)
[2017-11-23] MEDS ORDERED: KETOROLAC TROMETHAMINE INJ/PF 30 MG/1 ML SDV IV ONE (11:25)
[2017-11-23 12:08] LABS: ABSOLUTE EOSINOPHILS # (AUTO) 0.6 10^3/uL (0.0-0.6); ABSOLUTE LYMPHOCYTES (AUTO) 1.8 10^3/uL (0.5-4.7); ABSOLUTE MONOCYTES (AUTO) 0.4 10^3/uL (0.1-1.4); ABSOLUTE NEUT (AUTO) 2.4 10^3/uL (1.7-8.2); ABSOLUTE RETICS # 0.049 10^6/uL (0.028-0.122); BASOPHILS % (AUTO) 0.6 % (0-2); EOSINOPHILS % (AUTO) 10.7 % (0-6); HEMATOCRIT 37.7 % (36.0-47.0); HEMOGLOBIN 12.4 g/dL (12.0-15.5); LYMPHOCYTES % (AUTO) 34.2 % (13-45); MEAN CORPUSCULAR HEMOGLOBIN 26.1 pg (27.0-33.4); MEAN CORPUSCULAR HGB CONC 32.9 g/dL (32.0-36.0); MEAN CORPUSCULAR VOLUME 80 fl (80-97); MONOCYTES % (AUTO) 8.4 % (3-13); PLATELET COUNT 311 10^3/uL (150-450); RED BLOOD COUNT 4.74 10^6/uL (3.72-5.28); RED CELL DISTRIBUTION WIDTH 15.8 % (11.5-14.0); RETICULOCYTE COUNT (AUTO) 1.03 % (0.66-2.85); SEGMENTED NEUTROPHILS % (AUTO) 46.1 % (42-78); TOTAL CELLS COUNTED % (AUTO) 100 %; WHITE BLOOD COUNT 5.3 10^3/uL (4.0-10.5)
[2017-11-23 12:48] VITALS: BP 112/65
--- NOTE | 2017-11-23 12:54 | ER Document Report ---
ED General Pain - General Chief Complaint: Pain All Over Stated Complaint: GENERAL BODY PAIN Time Seen by Provider: 11/23/17 10:50 Mode of Arrival: Ambulatory Information source: Patient Notes: 22-year-old female presenting ED for complaint of pain all over for 2 days. States she has had cough and cold symptoms for the last 2 days with nasal drainage and fever. She states that her whole body in her bones hurt. She states she has a history of asthma sickle cell trait and anxiety. She states she has had surgery for pilonidal cyst. She states she has had the pain all over since July. Last menstrual period was November 04, 2017. She appears to be in no acute distress she is able to speak in full sentences she is able to ambulate with a steady gait. TRAVEL OUTSIDE OF THE [place] IN LAST 30 DAYS: No - HPI Onset: Other - Off and on since July she states this time is been for 2 days Onset/Duration: Intermittent Quality of pain: Achy, Sharp Severity: Moderate Pain Level: 3 Context: General body pain Typical of prior episodes of painful crisis: No Genotype: States she has sickle cell trait Associated symptoms: None Exacerbated by: Denies Relieved by: Denies Similar symptoms previously: Yes Recently seen / treated by doctor: No - Related Data Allergies/Adverse Reactions: No Known Allergies Allergy (Verified 11/23/17 10:17) Past Medical History - General Information source: Patient - Social History Smoking Status: Former Smoker Cigarette use (# per day): No Chew tobacco use (# tins/day): No Smoking Education Provided: No Frequency of alcohol use: None Drug Abuse: None 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 [employer] Lives with: Alone - Along with her son Family History: Reviewed & Not Pertinent Patient has suicidal ideation: No Patient has homicidal ideation: No - Medical History Medical History: Other - Sickle cell trait - Past Medical History Cardiac Medical History: Reports: None Pulmonary Medical History: Reports: Hx Asthma EENT Medical History: Reports: None Neurological Medical History: Reports: None Endocrine Medical History: Reports: None Renal/ Medical History: Reports: None GI Medical History: Reports: None Musculoskeltal Medical History: Reports None Skin Medical History: Reports Hx Cellulitis Psychiatric Medical History: Reports: None Traumatic Medical History: Reports: None Infectious Medical History: Reports: None Past Surgical History: Reports: Other - Pilonidal cyst removed - Immunizations Hx Diphtheria, Pertussis, Tetanus Vaccination: Yes Review of Systems - Review of Systems Constitutional: Chills, Fever, Recent illness EENT: Nose congestion, Nose discharge Cardiovascular: No symptoms reported Respiratory: No symptoms reported Gastrointestinal: No symptoms reported Genitourinary: No symptoms reported Female Genitourinary: No symptoms reported Musculoskeletal: Muscle pain, Muscle stiffness Skin: No symptoms reported Hematologic/Lymphatic: No symptoms reported Neurological/Psychological: No symptoms reported -: Yes All other systems reviewed and negative Physical Exam - Vital signs Vitals: Temp Pulse Resp BP Pulse Ox 98.5 F 97 16 127/83 H 100 11/23/17 10:20 11/23/17 10:20 11/23/17 10:20 11/23/17 10:20 11/23/17 10:20 Interpretation: Normal - General General appearance: Appears well, Alert - HEENT Head: Normocephalic, Atraumatic Eyes: Normal Pupils: PERRL Ears: Normal External canal: Normal Tympanic membrane: Normal Sinus: Normal Nasal: Swelling - Boggy pale nasal mucosa, Clear rhinorrhea Mouth/Lips: Normal Pharynx: Post nasal drainage. No: Erythema, Exudate, Peritonsillar abscess, Retropharyngeal abscess, Tonsillar hypertrophy, Potential airway comprom., Other Neck: Normal - Respiratory Respiratory status: No respiratory distress Chest status: Nontender Breath sounds: Normal Chest palpation: Normal - Cardiovascular Rhythm: Regular Heart sounds: Normal auscultation Murmur: No - Abdominal Inspection: Normal Distension: No distension Bowel sounds: Normal Tenderness: Nontender Organomegaly: No organomegaly - Back Back: Normal, Nontender - Extremities General upper extremity: Normal inspection, Nontender, Normal color, Normal ROM , Normal temperature General lower extremity: Normal inspection, Nontender, Normal color, Normal ROM , Normal temperature, Normal weight bearing. No: Gilson's sign - Neurological Neuro grossly intact: Yes Cognition: Normal Orientation: AAOx4 Raj Coma Scale Eye Opening: Spontaneous [place] Coma Scale Verbal: Oriented Raj Coma Scale Motor: Obeys Commands Raj Coma Scale Total: 15 Speech: Normal Motor strength normal: LUE, RUE, LLE, RLE Sensory: Normal - Psychological Associated symptoms: Normal affect, Normal mood - Skin Skin Temperature: Warm Skin Moisture: Dry Skin Color: Normal Course - Re-evaluation Re-evalutation: 11/23/17 21:43 Patient was treated with Toradol and IV fluids for her stated general body aches. Her cough and cold symptoms were upper respiratory infection and did not need any other treatment. A CBC and reticulocyte count were completed which were negative for any sickle cell anemia crisis at this time. - Vital Signs Vital signs: Temp Pulse Resp BP Pulse Ox 98.0 F 86 16 112/65 100 11/23/17 12:46 11/23/17 12:46 11/23/17 12:46 11/23/17 12:46 11/23/17 12:46 - Laboratory Result Diagrams: 11/23/17 11:40 Laboratory results interpreted by me: 11/23/17 11:40 MCH 26.1 L RDW 15.8 H Eosinophils % 10.7 H Discharge - Discharge Clinical Impression: Total body pain Condition: Stable Disposition: HOME, SELF-CARE Instructions: Family Physicians / Practices, Use of Rlpq-Sma-Lbosjet Ibuprofen ([facility]) Additional Instructions: You were seen today for total body pain. States you have a history of sickle cell trait but do CBC and reticulocyte count are normal today. The treatment for return sickle cell trait is usually increased fluids. These follow-up with your primary doctor by telephone tomorrow to schedule a follow-up appointment. Intravenous (IV) Fluids As part of your care today, you received intravenous (IV) fluids. IV fluids are administered to patients who are dehydrated or to those who have certain chemical (electrolyte) abnormalities that need correcting. Toradol Injection You have been given an injection of ketorolac tromethamine (Toradol). This is an excellent, safe drug for pain control. It also has potent antiinflammatory action. You should have significant pain relief within about one hour. Toradol is not addicting and is non-sedating. It does not interfere with driving or work. Call or return if you develop itching, hives, shortness of breath, or rash. FOLLOW-UP CARE: If you have been referred to a physician for follow-up care, call the physician s office for an appointment as you were instructed or within the next two days. If you experience worsening or a significant change in your symptoms, notify the physician immediately or return to the Emergency Department at any time for re-evaluation. Forms: Return to Work
== END 2017-11-23 13:20 | disposition home or self-care (01) ==
LOC: ER 10:16
DX: M89.8X0 Other specified disorders of bone, multiple sites (principal); M79.1 Myalgia; J06.9 Acute upper respiratory infection, unspecified; R05 Cough; R50.9 Fever, unspecified; J34.89 Other specified disorders of nose and nasal sinuses; R09.81 Nasal congestion; R09.82 Postnasal drip; J45.909 Unspecified asthma, uncomplicated; D57.3 Sickle-cell trait; Z87.891 Personal history of nicotine dependence
CPT/HCPCS: 99283; 96361; 96374; 36415; 85025; 85045; J1885; J7030

== ENCOUNTER 2017-12-11 22:52 | Emergency (ER) | payer MEDICAID ==
[2017-12-12] MEDS ORDERED: SULFAMETHOXAZOLE/TRIMETHOPRIM 800-160 MG TABLET PO ONE (00:06)
[2017-12-12] MEDS ORDERED: HYDROMORPHONE HCL INJ/PF 2 MG/ML AMPULE IM ONE (00:07)
[2017-12-12] MEDS ORDERED: LIDOCAINE 4%/TETRACAINE 0.5%/EPI 0.18% 5 ML TOPICAL SOLN TOP ONE (00:07)
--- NOTE | 2017-12-12 00:25 | ER Document Report ---
ED General - General Chief Complaint: Abscess Stated Complaint: LEFT ARM PAIN Time Seen by Provider: 12/11/17 23:45 Notes: Patient is a 22-year-old female with a past medical history of prior abscesses who presents with 3 days of progressively worsening pain in her left upper extremity. Grabs a swollen area that is gotten increasingly large with surrounding redness over the last several days. She describes a severe, constant, throbbing pain to the area. It is worsened by touching the area. Nothing improves the pain. Patient reports that this is very similar to when she has had abscesses in the past. She has not seen a primary doctor regarding today's concerns. She denies any associated fever or constitutional symptoms. TRAVEL OUTSIDE OF THE [place] IN LAST 30 DAYS: No - Related Data Allergies/Adverse Reactions: No Known Allergies Allergy (Verified 11/23/17 10:17) Past Medical History - General Information source: Patient - Social History Smoking Status: Never Smoker Frequency of alcohol use: None Drug Abuse: None Lives with: Family Family History: Reviewed & Not Pertinent Patient has suicidal ideation: No Patient has homicidal ideation: No Pulmonary Medical History: Reports: Hx Asthma Renal/ Medical History: Denies: Hx Peritoneal Dialysis Skin Medical History: Reports Hx Cellulitis Psychiatric Medical History: Denies: Hx Depression Past Surgical History: Reports: Hx Orthopedic Surgery - COCCYX, Other - Pilonidal cyst removed - Immunizations Hx Diphtheria, Pertussis, Tetanus Vaccination: Yes Review of Systems - Review of Systems Notes: Constitutional: Negative for fever. HENT: Negative for sore throat. Eyes: Negative for visual changes. Cardiovascular: Negative for chest pain. Respiratory: Negative for shortness of breath. Gastrointestinal: Negative for abdominal pain, vomiting or diarrhea. Genitourinary: Negative for dysuria. Musculoskeletal: Negative for back pain. Skin: Positive for left arm abscess Neurological: Negative for headaches, weakness or numbness. 10 point ROS negative except as marked above and in HPI. Physical Exam - Vital signs Vitals: Temp Pulse Resp BP Pulse Ox 98.7 F 86 20 123/76 98 12/11/17 23:35 12/11/17 23:35 12/11/17 23:35 12/11/17 23:35 12/11/17 23:35 Interpretation: Normal Notes: PHYSICAL EXAMINATION: GENERAL: Well-appearing, well-nourished and in no acute distress. HEAD: Atraumatic, normocephalic. EYES: Pupils equal round and reactive to light, extraocular movements intact, sclera anicteric, conjunctiva are normal. ENT: nares patent, oropharynx clear without exudates. Moist mucous membranes. NECK: Normal range of motion, supple without lymphadenopathy LUNGS: Breath sounds clear to auscultation bilaterally and equal. No wheezes rales or rhonchi. HEART: Regular rate and rhythm without murmurs ABDOMEN: Soft, nontender, normoactive bowel sounds. No guarding, no rebound. No masses appreciated. EXTREMITIES: Normal range of motion, no pitting or edema. No cyanosis. NEUROLOGICAL: No focal neurological deficits. Moves all extremities spontaneously and on command. PSYCH: Normal mood, normal affect. SKIN: Warm, Dry, normal turgor, there is a 3 x 3 cm abscess on the posterior left proximal upper extremity just lateral to the axilla with a surrounding area of erythema that extends 4 x 3 cm outside of the abscess Course - Re-evaluation Re-evalutation: 12/12/17 00:19 Patient presents with an abscess on her left triceps region with surrounding erythema with associated cellulitis. The patient is otherwise nontoxic in appearance, does not meet sepsis criteria. The area has been incised and drained and patient was started on trimethoprim sulfamethoxazole for coverage of MRSA. At this time will discharge with return precautions and follow-up recommendations. Verbal discharge instructions given a the bedside and opportunity for questions given. Medication warnings reviewed. Patient is in agreement with this plan and has verbalized understanding of return precautions and the need for primary care follow-up in the next 24-72 hours. - Vital Signs Vital signs: Temp Pulse Resp BP Pulse Ox 98.6 F 84 20 130/69 H 99 12/12/17 01:03 12/12/17 01:03 12/12/17 01:03 12/12/17 01:03 12/12/17 01:03 Procedures - Incision and Drainage Left Arm Type: Simple Anesthetic type: 1% Lidocaine mL's of anesthetic: 4 Blade size: 11 I&D procedure: Betadine prep applied, Iodoform packing placed Incision Method: Incision made by scalpel Amount/type of drainage: 5 cc purulent drainage Discharge - Discharge Clinical Impression: Abscess of left upper extremity Condition: Good Disposition: HOME, SELF-CARE Additional Instructions: You were seen for an abscess that required drainage. Please clean this area with soap and water twice daily and apply a topical antibiotic. Dress the area after each cleaning. Please return if you develop fever, vomiting, the pain at the site worsens, you notice spreading redness from the area, or you have any other symptoms that are concerning to you. Prescriptions: Sulfamethoxazole/Trimethoprim [Bactrim Ds Tablet] 2 tab PO BID #28 tablet Forms: Return to Work
[2017-12-12 01:29] VITALS: BP 130/69
== END 2017-12-12 01:03 | disposition home or self-care (01) ==
LOC: ER 22:52
DX: L02.414 Cutaneous abscess of left upper limb (principal); L03.114 Cellulitis of left upper limb; J45.909 Unspecified asthma, uncomplicated
CPT/HCPCS: 99283; 96372; 10060; A6266; J1170; J3490 ×2

== ENCOUNTER 2017-12-12 18:23 | Emergency (ER) | payer MEDICAID ==
[2017-12-12] MEDS ORDERED: METHYLPREDNISOLONE INJ 125 MG/2 ML SDV IV ONE (19:38)
[2017-12-12] MEDS ORDERED: FAMOTIDINE INJ/PF 20 MG/2 ML SDV IV ONE (19:39)
--- NOTE | 2017-12-12 19:45 | ER Document Report ---
ED Medical Screen (RME) - General Chief Complaint: Allergic Reaction Stated Complaint: HEADACHE Time Seen by Provider: 12/12/17 19:21 Mode of Arrival: Ambulatory Information source: Patient Notes: 22-year-old female who presents to the emergency department today with complaints of an allergic reaction to Bactrim which she received yesterday for a MRSA infection in her left arm. Patient had an I&D performed last night in this emergency department. Patient complains of lip swelling, lip burning, generalized itchiness, and an associated headache. Patient denies any throat swelling, shortness of breath, or fevers. TRAVEL OUTSIDE OF THE [place] IN LAST 30 DAYS: No - Related Data Allergies/Adverse Reactions: sulfamethoxazole [From Bactrim] Allergy (Verified 12/12/17 19:39) trimethoprim [From Bactrim] Allergy (Verified 12/12/17 19:39) Past Medical History - Social History Chew tobacco use (# tins/day): No Frequency of alcohol use: None Drug Abuse: None Pulmonary Medical History: Reports: Hx Asthma Renal/ Medical History: Denies: Hx Peritoneal Dialysis Skin Medical History: Reports Hx Cellulitis Psychiatric Medical History: Denies: Hx Depression Past Surgical History: Reports: Hx Orthopedic Surgery - COCCYX, Other - Pilonidal cyst removed - Immunizations Hx Diphtheria, Pertussis, Tetanus Vaccination: Yes Review of Systems - Review of Systems EENT: See HPI, Other - lip swelling Neurological/Psychological: See HPI, Headaches Physical Exam - Vital signs Vitals: Temp Pulse Resp BP Pulse Ox 100.2 F 120 H 16 100/59 L 98 12/12/17 18:33 12/12/17 18:33 12/12/17 18:33 12/12/17 18:33 12/12/17 18:33 - General General appearance: Appears well In distress: None - HEENT Head: Normocephalic, Atraumatic Eyes: Normal Conjunctiva: Normal Cornea: Normal Extraocular movements intact: Yes Notes: Lip swelling. No posterior oropharynx swelling. - Respiratory Respiratory status: No respiratory distress - Cardiovascular Rhythm: Tachycardia Heart sounds: Normal auscultation Murmur: No Course - Vital Signs Vital signs: Temp Pulse Resp BP Pulse Ox 100.2 F 120 H 16 100/59 L 98 12/12/17 18:33 12/12/17 18:33 12/12/17 18:33 12/12/17 18:33 12/12/17 18:33 Scribe Documentation - Scribe Written by Rodriguez:: Rodriguez Buitrago, [id number] acting as scribe for :: Marina
[2017-12-12] MEDS ORDERED: ONDANSETRON HCL INJ/PF 4 MG/2 ML SDV ONE (19:58)
[2017-12-12] MEDS ORDERED: ONDANSETRON HCL INJ/PF 4 MG/2 ML SDV IV ONE (19:59)
--- NOTE | 2017-12-12 20:57 | ER Document Report ---
ED General - General Chief Complaint: Allergic Reaction Stated Complaint: HEADACHE Time Seen by Provider: 12/12/17 19:21 Mode of Arrival: Ambulatory Notes: Patient is a 22 year old female that comes to the ED for chief complaint of possible allergic reaction to medication. She states she was given a dose of Bactrim last night after she was evaluated for an infection/abscess on her left upper arm/triceps. She had the area drained and packed, she states that she was itching when she went home, she slept, when she woke up she had swelling to her lower lip and called EMS. She was given Benadryl, Pepcid, Zofran. She denies any difficulty swallowing, tongue swelling, difficulty breathing, rash over her body. She is unsure if abscess area has improved or not. She denies any fevers at home. 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 TRAVEL OUTSIDE OF THE [place] IN LAST 30 DAYS: No - Related Data Allergies/Adverse Reactions: sulfamethoxazole [From Bactrim] Allergy (Verified 12/12/17 19:39) trimethoprim [From Bactrim] Allergy (Verified 12/12/17 19:39) Past Medical History - General Information source: Patient - Social History Smoking Status: Never Smoker Chew tobacco use (# tins/day): No Frequency of alcohol use: None Drug Abuse: None Family History: Reviewed & Not Pertinent Patient has suicidal ideation: No Patient has homicidal ideation: No Pulmonary Medical History: Reports: Hx Asthma Renal/ Medical History: Denies: Hx Peritoneal Dialysis Skin Medical History: Reports Hx Cellulitis Psychiatric Medical History: Denies: Hx Depression Past Surgical History: Reports: Hx Orthopedic Surgery - COCCYX, Other - Pilonidal cyst removed - Immunizations Hx Diphtheria, Pertussis, Tetanus Vaccination: Yes Review of Systems - Review of Systems Constitutional: No symptoms reported EENT: See HPI Cardiovascular: No symptoms reported Respiratory: No symptoms reported Gastrointestinal: No symptoms reported Genitourinary: No symptoms reported Female Genitourinary: No symptoms reported Musculoskeletal: No symptoms reported Skin: See HPI Hematologic/Lymphatic: No symptoms reported Neurological/Psychological: No symptoms reported Physical Exam - Vital signs Vitals: Temp Pulse Resp BP Pulse Ox 100.2 F 120 H 16 100/59 L 98 12/12/17 18:33 12/12/17 18:33 12/12/17 18:33 12/12/17 18:33 12/12/17 18:33 Interpretation: Normal - General General appearance: Appears well, Alert In distress: None - HEENT Head: Normocephalic, Atraumatic Eyes: Normal Conjunctiva: Normal Extraocular movements intact: Yes Eyelashes: Normal Pupils: PERRL Ears: Normal External canal: Normal Tympanic membrane: Normal Sinus: Normal Nasal: Normal Mouth/Lips: Normal. No: Angioedema - I do not appreciate any obvious swelling of the lips Mucous membranes: Normal Pharynx: Normal. No: Uvular edema, Potential airway comprom. Neck: Normal - Respiratory Respiratory status: No respiratory distress Chest status: Nontender Breath sounds: Normal. No: Decreased air movement, Wheezing Chest palpation: Normal - Cardiovascular Rhythm: Regular. No: Tachycardia - No tachycardia on my exam Heart sounds: Normal auscultation, S1 appreciated. No: S2 appreciated Murmur: No - Abdominal Inspection: Normal Distension: No distension Bowel sounds: Normal Tenderness: Nontender Organomegaly: No organomegaly - Back Back: Normal, Nontender - Extremities General upper extremity: Other - There is a packed abscess in the left upper arm at the area of the triceps near the axilla, minimal surrounding erythema, mild tenderness over the area, no nearby adenopathy, otherwise normal upper extremity exam General lower extremity: Normal inspection, Nontender, Normal color, Normal ROM , Normal temperature, Normal weight bearing - Neurological Neuro grossly intact: Yes Cognition: Normal Orientation: AAOx4 Raj Coma Scale Eye Opening: Spontaneous Raj Coma Scale Verbal: Oriented Raj Coma Scale Motor: Obeys Commands Raj Coma Scale Total: 15 Speech: Normal Motor strength normal: LUE, RUE, LLE, RLE Sensory: Normal - Psychological Associated symptoms: Normal affect, Normal mood - Skin Skin Temperature: Warm Skin Moisture: Dry Skin Color: Normal Course - Re-evaluation Re-evalutation: Abscess packing in place, area does not appear to be spreading, no significant surrounding erythema. Patient with questionable lower lip swelling, normal oropharyngeal exam, normal skin exam, clear lungs, she is in no distress. Unsure if patient just has itching as a side effect from the medication or if she had an allergic reaction. No obvious signs of allergic reaction on my evaluation. She is received Benadryl and Pepcid along with Solu-Medrol. Vital signs showing tachycardia, borderline temperature, these were rechecked and found to be normal. Patient does not have any obvious cellulitis, has the abscess, she will be placed on doxycycline instead of Bactrim, she was placed on - Vital Signs Vital signs: Temp Pulse Resp BP Pulse Ox 98.5 F 99 20 115/72 98 12/12/17 22:20 12/12/17 22:20 12/12/17 22:20 12/12/17 22:20 12/12/17 22:20 Discharge - Discharge Clinical Impression: Abscess of left upper extremity Medication side effect Qualifiers: Encounter type: initial encounter Qualified Code(s): T88.7XXA - Unspecified adverse effect of drug or medicament, initial encounter Condition: Stable Disposition: HOME, SELF-CARE Additional Instructions: Your symptoms are suspected to be from the Bactrim antibiotic. Stop the Bactrim antibiotic, take the doxycycline antibiotic instead. Follow original instructions in regards to your healing abscess and cellulitis area. Take the Zyrtec prescribed for 1 week. Follow-up with primary care. Return for any concerning symptoms including swelling of her tongue or throat, difficulty swallowing or breathing, rash over your body, fever of 100.4 or greater, spreading redness around the drained abscess, or any other concerning symptoms. Prescriptions: Cetirizine HCl [Zyrtec 10 mg Tablet] 1 tab PO DAILY #30 tablet Doxycycline Hyclate 100 mg PO BID #14 capsule Referrals: KATE BAUTISTA DO [Primary Care Provider] - Follow up as needed
[2017-12-12] MEDS ORDERED: DOXYCYCLINE HYCLATE 100 MG TABLET PO ONE (22:02)
[2017-12-12 22:29] VITALS: BP 115/72
== END 2017-12-12 22:20 | disposition home or self-care (01) ==
LOC: ER 18:23
DX: L02.414 Cutaneous abscess of left upper limb (principal); R51 Headache; Z88.3 Allergy status to other anti-infective agents
CPT/HCPCS: 99283; 96374; 96375; J3490; J2930; J2405; S0028

== ENCOUNTER 2018-03-05 03:12 | Emergency (ER) | payer MEDICAID ==
--- NOTE | 2018-03-05 05:29 | ER Document Report ---
ED Extremity Problem, Lower - General Mode of Arrival: Ambulatory Information source: Patient TRAVEL OUTSIDE OF THE [place] IN LAST 30 DAYS: No - General Chief Complaint: Foot Pain Stated Complaint: FOOT PAIN Time Seen by Provider: 03/05/18 05:00 Notes: Patient is a 22-year-old female with a history of eczema presents to the emergency department complaining of right foot pain onset 3 months ago worsening yesterday. Patient states that yesterday her foot started to flake and bleed which was abnormal. She further states she originally thought it was her eczema causing her symptoms. Patient denies any recent injury to her foot or fevers. (JOHN GRACE) - Related Data Allergies/Adverse Reactions: sulfamethoxazole [From Bactrim] Allergy (Verified 12/12/17 19:39) trimethoprim [From Bactrim] Allergy (Verified 12/12/17 19:39) Past Medical History - General Information source: Patient - Social History Smoking Status: Current Every Day Smoker Chew tobacco use (# tins/day): No Frequency of alcohol use: None Drug Abuse: None Family History: Reviewed & Not Pertinent Patient has suicidal ideation: No Patient has homicidal ideation: No Pulmonary Medical History: Reports: Hx Asthma Skin Medical History: Reports Hx Cellulitis Past Surgical History: Reports: Hx Orthopedic Surgery - COCCYX, Other - Pilonidal cyst removed - Immunizations Hx Diphtheria, Pertussis, Tetanus Vaccination: Yes Review of Systems - Review of Systems Constitutional: No symptoms reported EENT: No symptoms reported Cardiovascular: No symptoms reported Respiratory: No symptoms reported Gastrointestinal: No symptoms reported Genitourinary: No symptoms reported Female Genitourinary: No symptoms reported Musculoskeletal: See HPI Skin: No symptoms reported Hematologic/Lymphatic: No symptoms reported Neurological/Psychological: No symptoms reported -: Yes All other systems reviewed and negative Physical Exam - Vital signs Vitals: Temp Pulse Resp BP Pulse Ox 98.4 F 101 H 18 128/81 H 99 03/05/18 03:23 03/05/18 03:23 03/05/18 03:23 03/05/18 03:23 03/05/18 03:23 - Notes Notes: GENERAL: Alert, interacts well. No acute distress. HEAD: Normocephalic, atraumatic. EYES: Pupils equal, round, and reactive to light. Extraocular movements intact. ENT: Oral mucosa moist, tongue midline. NECK: Full range of motion. Supple. Trachea midline. EXTREMITIES: Moves all 4 extremities spontaneously. NEUROLOGICAL: Alert and oriented x3. Normal speech. PSYCH: Normal affect, normal mood. SKIN: severe plaquing of right foot spares medial malleolus, skin breakdown is not circumferential, mostly on dorsal aspect. Toenails hypertrophic. doraslis pedis pulse intact, Dorsal aspect of right foot has some bleeding, no erythema. (JOHN GRACE) Course - Re-evaluation Re-evalutation: 03/05/18 05:36 Appears to be a worsening of eczema likely caused by athlete's foot on top of that. Patient has been trying a combination of [id number] powders that have likely worsened this and caused further drying. There may be some secondary bacterial infection as well which will be treated with Keflex. Patient will be treated with a combination of antifungal ointments, steroids by mouth as well as topical steroid creams and Keflex. Discharged home. (JIL LUCIA) - Vital Signs Vital signs: Temp Pulse Resp BP Pulse Ox 98.4 F 66 18 116/65 100 03/05/18 06:29 03/05/18 06:29 03/05/18 06:29 03/05/18 06:29 03/05/18 06:29 Discharge - Discharge Clinical Impression: Cellulitis of right foot, Athlete's foot, right, Onychomycosis Condition: Stable Disposition: HOME, SELF-CARE Additional Instructions: Please change your socks frequently, leave your feet open to the air as much as possible. This will help to clear up the athlete's foot, which is a fungal infection of your foot. This infection is causing your eczema to worsen. I am giving you a dose of steroids by mouth in the form of a steroid taper pack to decrease the inflammation on your foot, this will improve your eczema rapidly. I am also starting on an antibiotic called Keflex, this will help with the infection. I want you to wash her foot with a gentle soap or cleanser such as Cetaphil twice a day and pat it dry. Do not rub it. Afterwards apply a gentle moisturizer such as Eucerin or Cerave. Twice a day you should also apply Lotrimin cream. Once the skin heals over you can decrease the moisturizing cream to only as needed and decrease washing her foot to only once a day. You will need to apply the Lotrimin cream to your foot twice a day every day for several months until there is no more thickening of your toenails and no more crusting of your skin on your feet. Prescriptions: Butenafine HCl [Lotrimin Ultra 1% Cream] 1 applic TP BID #2 tube Cephalexin Monohydrate [Keflex 500 mg Capsule] 500 mg PO Q6H #28 capsule Prednisone [Sterapred] 5 mg PO ASDIR PRN #1 [id number] PRN Reason: Referrals: NABILA GLORIA MD [EMERITUS] - Follow up in 1 week Scribe Attestation: 03/05/18 06:52 I personally performed the services described in the documentation, reviewed and edited the documentation which was dictated to the scribe in my presence, and it accurately records my words and actions. (JIL LUCIA) Scribe Documentation - Scribe Written by Rodriguez:: Rodriguez Boyd, 03/05/2018 05:29 acting as scribe for :: Jennifer
[2018-03-05] MEDS ORDERED: IBUPROFEN 600 MG TABLET PO ONE (05:59)
[2018-03-05 06:30] VITALS: BP 116/65
== END 2018-03-05 06:30 | disposition home or self-care (01) ==
LOC: ER 03:12
DX: L03.115 Cellulitis of right lower limb (principal); B35.3 Tinea pedis; B35.1 Tinea unguium; M79.671 Pain in right foot; F17.200 Nicotine dependence, unspecified, uncomplicated; J45.909 Unspecified asthma, uncomplicated
CPT/HCPCS: 99283; J3490

== ENCOUNTER 2018-04-04 19:07 | Emergency (ER) | payer MEDICAID, OTHER ==
--- NOTE | 2018-04-04 19:46 | ER Document Report ---
ED General - General Mode of Arrival: Ambulatory Information source: Patient TRAVEL OUTSIDE OF THE [place] IN LAST 30 DAYS: No - HPI Onset: This morning - Around 3 AM Onset/Duration: Sudden, Persistent Quality of pain: Achy, Sharp, Throbbing Severity: Severe Pain Level: 5 Associated symptoms: Body/muscle aches, Other - Lateral lower back pain with pain to the right ankle and foot Exacerbated by: Standing, Movement, Walking Relieved by: Denies Similar symptoms previously: No Recently seen / treated by doctor: No <GONZALEZ ROJAS - Last Filed: 04/04/18 22:05> <MICHELLE NAVARRO - Last Filed: 04/04/18 22:20> <AMAURY MORTON - Last Filed: 04/04/18 23:21> - General Chief Complaint: Low Back Pain Stated Complaint: LEG/BACK PAIN Time Seen by Provider: 04/04/18 19:30 Notes: 22-year-old female presents to ED for complaint of low back pain bilaterally and right ankle and foot pain. 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 She states while she was holding him he was thrashing around and she does not know if he stepped on her foot or she will do chair on it but her ankle rolled while she was standing. She is alert oriented, lungs are clear, respirations regular and unlabored, speaking in full sentences, pupils equal and react to light, and able to ambulate with a slight limp. She states her last menstrual period was in the beginning of February but she was on the Nexplanon which was removed at the beginning of March and a week later she started her oral control. 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 [employer] Family History: Reviewed & Not Pertinent Patient has suicidal ideation: No Patient has homicidal ideation: No - Past Medical History Cardiac Medical History: Reports: None Pulmonary Medical History: Reports: Hx Asthma EENT Medical History: Reports: None Neurological Medical History: Reports: None Endocrine Medical History: Reports: None Renal/ Medical History: Reports: None Malignancy Medical History: Reports: None GI Medical History: Reports: None Musculoskeltal Medical History: Reports Hx Musculoskeletal Trauma Skin Medical History: Reports Hx Cellulitis, Reports Hx Eczema Psychiatric Medical History: Reports: None Traumatic Medical History: Reports: None Infectious Medical History: Reports: None Past Surgical History: Reports: Hx Orthopedic Surgery - COCCYX, Other - Pilonidal cyst removed - Immunizations Hx Diphtheria, Pertussis, Tetanus Vaccination: Yes <GONZALEZ ROJAS - Last Filed: 04/04/18 22:05> Review of Systems - Review of Systems Constitutional: No symptoms reported EENT: No symptoms reported Cardiovascular: No symptoms reported Respiratory: No symptoms reported Gastrointestinal: No symptoms reported Genitourinary: No symptoms reported Female Genitourinary: No symptoms reported Musculoskeletal: Back pain, Muscle pain - Lateral low back pain, Other - Right ankle and foot pain Skin: No symptoms reported Hematologic/Lymphatic: No symptoms reported Neurological/Psychological: No symptoms reported -: Yes All other systems reviewed and negative <GONZALEZ ROJAS - Last Filed: 04/04/18 22:05> Physical Exam - Vital signs Interpretation: Normal - General General appearance: Appears well, Alert - HEENT Head: Normocephalic, Atraumatic Eyes: Normal Pupils: PERRL - Respiratory Respiratory status: No respiratory distress Chest status: Nontender Breath sounds: Normal Chest palpation: Normal - Cardiovascular Rhythm: Regular Heart sounds: Normal auscultation Murmur: No - Abdominal Inspection: Normal Distension: No distension Bowel sounds: Normal Tenderness: Nontender Organomegaly: No organomegaly - Back Back: Normal, Nontender, Tender. No: Deformity/step-off, CVA tenderness, Vertebra tenderness, Scars, Scoliosis, Wounds - Extremities General upper extremity: Normal inspection, Nontender, Normal color, Normal ROM , Normal temperature General lower extremity: Normal inspection, Normal color, Normal ROM, Normal temperature, Normal weight bearing. No: Gilson's sign Ankle: Tender. No: Abrasion, Deformity, Ecchymosis, Edema, Instability, Laceration, Limited ROM, Positive Rich's test, Unable to bear weight Foot: Tender, No evidence of FB. No: Abrasion, Deformity, Ecchymosis, Edema, Instability, Laceration, Metatarsal compress. pain, Nail injury, Navicular tenderness, Puncture wound, Tender 5th metatarsal - Neurological Neuro grossly intact: Yes Cognition: Normal Orientation: AAOx4 Raj Coma Scale Eye Opening: Spontaneous Raj Coma Scale Verbal: Oriented [place] Coma Scale Motor: Obeys Commands Raj Coma Scale Total: 15 Speech: Normal Motor strength normal: LUE, RUE, LLE, RLE Sensory: Normal - Psychological Associated symptoms: Normal affect, Normal mood - Skin Irregularity with: Thickening, Scaling, Crusting, Inflammation <GONZALEZ ROJAS - Last Filed: 04/04/18 22:05> - Vital signs Vitals: Temp Pulse Resp BP Pulse Ox 98.9 F 103 H 18 121/68 97 04/04/18 19:12 04/04/18 19:12 04/04/18 19:12 04/04/18 19:12 04/04/18 19:12 Course - Laboratory Result Diagrams: 04/04/18 21:44 04/04/18 21:44 - Diagnostic Test Radiology reviewed: Image reviewed, Reports reviewed <GONZALEZ ROJAS - Last Filed: 04/04/18 22:05> - Laboratory Result Diagrams: 04/04/18 21:44 04/04/18 21:44 <MICHELLE NAVARRO - Last Filed: 04/04/18 22:20> - Laboratory Result Diagrams: 04/04/18 21:44 04/04/18 21:44 <AMAURY MORTON - Last Filed: 04/04/18 23:21> - Re-evaluation Re-evalutation: 04/04/18 21:20 When preparing to discharge the patient removed sock to apply Ishmael wrap for her sprained ankle and noted that she had paper towel wrapped around her foot that was embedded to multiple sores to her foot. Patient states she has had eczema that is been inflamed for about 2 months. She states she just wrapped her foot in paper towel this morning but did not apply any creams because she did not have any gauze or any cream to put on her foot this morning. Patient at no time during her first exam complained of any excoriation to her foot and her foot was examined through her sock. She stated that the foot hurt with movement but she stated it was because she rolled her ankle. Consulted Dr. zhang appendectomy for this cellulitis foot who came and examined the foot she recommended CBC chemistry CRP blood cultures and urine culture to be run and patient to be given a gram of Rocephin IV in the emergency room. She stated that the LACE INSPECTOR that I am handing her off to will need to follow-up with her with the lab results. She states that the patient may need to be admitted for 24 hours for IV antibiotics. Patient states she does not have a primary doctor. 04/04/18 21:55 Report given to Michelle Navarro LACE INSPECTOR. (GONZALEZ ROJAS) 04/04/18 21:59 Patient presents with pruritus and skin rash shortly after IV Rocephin initiated. Infusion stopped and medications ordered. Patient's respirations unlabored, no angioedema. 04/04/18 22:21 Medications given for allergic reaction. Patient continues to sneeze and is now vomiting. Additional medication ordered. Patient's respirations unlabored , no potential airway compromise. (MICHELLE NAVARRO) 04/04/18 23:18 Patient is a 23-year-old female with history of eczema which later turned into a foot infection per her own history. She was seen here a month ago and placed on Keflex and prednisone. She said her foot started get better but when she went on the Keflex and start to look worse again. She said she was scratching it today and ripped off some of the scabs and then he got worse. She was initially seen by Jennifer Rojas nurse practitioner. Marla Brownlee nurse practitioner took over care from her to follow-up on workup. Patient was then seen in conjunction by Dr. Raffy weeks as her supervising physician. Dr. Raffy saini requested that I also look at the patient's foot and to give my opinion. Patient does appear to have a secondary infection with some associated skin breakdown the foot. Is not diabetic. Her laboratory evaluation is unremarkable. She does not have any crepitance throughout the foot. No evidence of abscess on exam. I informed the patient that can admit her for continued antibiotics and then wound care management. I informed her if she does not prefer admission then she would definitely have to follow very closely with the wound care clinic and take the antibiotics as prescribed and have a very low threshold to return to ER immediately if her foot is worsening in appearance anyway or if she develops fevers. Patient says she does not want to stay in the hospital and prefers to follow-up outpatient. Will place patient on antibiotics covering for both strep and staph and therefore chosen doxycycline. I informed her that since she is want to stay in hospital that she needs to have a very low threshold to return to ER immediately if she has any worsening of the foot, fevers, or any further concerns whatsoever and I stressed the very importance of her following up very closely with wound care clinic. Patient agrees with plan and will be discharged home she requested Dictation of this chart was performed using voice recognition software; therefore, there may be some unintended grammatical errors. (AMAURY MORTON) - Vital Signs Vital signs: Temp Pulse Resp BP Pulse Ox 97.8 F 101 H 18 123/69 99 04/04/18 21:00 04/04/18 21:00 04/04/18 21:00 04/04/18 21:00 04/04/18 21:00 - Laboratory Laboratory results interpreted by me: 04/04/18 04/04/18 19:50 21:44 MCH 26.7 L RDW 15.2 H Ur Leukocyte Esterase TRACE H Discharge <GONZALEZ ROJAS - Last Filed: 04/04/18 22:05> <MICHELLE NAVARRO - Last Filed: 04/04/18 22:20> <AMAURY MORTON - Last Filed: 04/04/18 23:21> - Discharge Clinical Impression: Right foot pain, Cellulitis of right foot, eczema right foot Bilateral low back pain Qualifiers: Chronicity: acute Sciatica presence: without sciatica Qualified Code(s): M54.5 - Low back pain Right ankle sprain Qualifiers: Encounter type: initial encounter Involved ligament of ankle: unspecified ligament Qualified Code(s): S93.401A - Sprain of unspecified ligament of right ankle, initial encounter Condition: Stable Disposition: HOME, SELF-CARE Instructions: Family Physicians / Practices Additional Instructions: LOW BACK PAIN: Three out of every four people will have an episode of disabling back pain during their lifetime. Most commonly the pain is due to straining of the muscles and ligaments in the low back. Usual treatment includes: (1) Rest on a firm surface. Avoid lying on your stomach. (2) Ice pack the painful area. After a few days, gentle heat may be used intermittently to relax the area, or ice packs can be continued. (3) Medication may be needed -- muscle relaxers and antiinflammatory medicines are commonly used. (4) As the back improves, exercises are prescribed to strengthen the back and abdominal muscles. Your doctor will advise you on the proper care for your back at each stage in your recovery. You may be better in a few days -- or healing may take several weeks. If new symptoms of a "herniated disc" (radiation of pain, numbness, or tingling down the back of the leg or weakness in the leg) occur, you should be re-examined. Further testing may be necessary. CELLULITIS: You have an infection of your skin and underlying soft tissues called cellulitis. This is due to bacteria, which can enter through any break in the skin, or even through an irritated hair follicle. Untreated, cellulitis will usually worsen. Antibiotics are required. Usually, warm packs or warm soaks, and elevation of the infected area are recommended. You should start getting better within 24 to 36 hours. Most infections respond quickly to the right medication. Follow-up care is important, however, to check for abscess (boil) formation, unsuspected foreign body, or resistant infection. If you develop fever, chills, or if the area of infection is becoming rapidly more swollen or painful, call the doctor at once. SPRAINED ANKLE: Your sprained ankle results from stretching or tearing of the ligaments which support the ankle. This usually results from twisting the foot inward and under. The ligaments will require time and protection in order to heal properly. Many ankle sprains are quite disabling, and should be taken seriously. The usual treatment for an ankle sprain is cold packs; protection with tape , splints, or wraps; elevation; and staying off the ankle for at least a day. As the ankle improves, you can walk IF it's not painful to bear weight. Sports are best postponed until healing is complete. More serious sprains usually require strengthening exercises after early healing. Your physician has assessed the seriousness of the ligament injury to your ankle. However, the treatment may change, depending on how your ankle progresses. If further exams were recommended, it is important that you follow through. Call the doctor if your foot becomes numb, painful, or severely swollen. Cephalexin The antibiotic you've been prescribed is a member of the cephalosporin class. This type of antibiotic covers a wide variety of infections, including those of the skin, lungs, and urinary tract. It's useful for staph infections. This antibiotic is slightly similar to the penicillin family. In rare cases , a person who is allergic to penicillin will also be allergic to this medication. If you have had a severe allergic reaction to penicillin, and have not taken this antibiotic since that time, notify your doctor. Antibiotics which cover many germs ("broad spectrum" antibiotics) are more likely to cause diarrhea or "yeast" infections. Women prone to vaginal yeast problems may suffer an attack after taking this antibiotic. In infants, oral thrush (white spots "stuck" on the cheek) or yeast diaper rash may result. See your doctor if these problems occur. Call at once if you develop itching, hives , shortness of breath, or lightheadedness. Bactroban Ointment Bactroban is very effective against the germs that cause infection within the skin. It's useful for impetigo and other superficial infections. Deeper infections require antibiotics by mouth or by shot. Apply the medicine three times a day for one week, or longer if your doctor has advised it. Stop the medicine and call your doctor if you develop large blisters, severe itching, increasing pain, swelling, fever, or spreading redness. USE OF CRUTCHES: The doctor has recommended that you not bear weight at this time. You will need to use crutches. Adjust the crutches so the tops come to about two inches under the armpit while you are standing upright. Use your hands -- not your armpits -- to support your weight. To get into a chair, support yourself with one crutch on the injured side. Hold the chair with the other hand, then lower yourself while putting all your weight on the good leg. Going up stairs is `good leg up, step up, then bring up crutches and bad leg.' Down stairs is `bad leg and crutches down, then bring good leg down.' If you develop numbness or swelling in an arm or hand, you are using the crutches incorrectly. Return if you are having any problems with the crutches. ICE & ELEVATION: Apply ice packs frequently against the painful area. Many different schedules are recommended, such as "20 minutes on, 20 minutes off" or "one hour ice, two hours rest." If you need to work, you may need to go longer between ice treatments. You should plan to have the area ice packed AT LEAST one- fourth of the time. The ice should be applied over the wrap, tape, or splint, or over a layer of cloth -- not directly against the skin. Some ice bags have a built-in cloth and can be put directly on the skin. Your injured part should be elevated as much as possible over the next 48 hours. Try to keep the injury above the level of the heart. Avoid use of the injured area. Elevation and rest will decrease the swelling. USE OF [id number] IBUPROFEN: Ibuprofen (Advil, Nuprin, Medipren, Motrin IB) is a medication for fever and pain control. In addition, it has anti- inflammatory effects which may be beneficial, especially in the treatment of injuries. It's best to take ibuprofen with food. Persons with ulcer disease or allergy to aspirin should notify their physician of this before taking ibuprofen. Ibuprofen can be given every four to six hours, for a total of four doses daily. Age Pain or fever dose Antiinflammatory dose 6-8 yr 200 mg (1 tab) 200 mg (1 tab) 9-11 yr 200 mg (1 tab) 200-400 mg (1-2 tab) 11-14 yr 200-400 mg (1-2 tab) 400 mg (2 tab) 15-adult 400 mg (2 tab) 600 mg (3 tab) USE OF TYLENOL (ACETAMINOPHEN): Acetaminophen may be taken for pain relief or fever control. It's much safer than aspirin, offering a wider range of "safe" dosages. It is safe during . Some brand names are Tylenol, Panadol, Datril, Anacin 3, Tempra, and Liquiprin. Acetaminophen can be repeated every four hours. The following are maximum recommended dosages: WEIGHT Dose Drops Elixir Chewable( 80mg) (LBS.) drprs=droppers tsp=teaspoon 6 40 mg 0.4 ml (1/2) 6-11 80 mg 0.8 ml (full) tsp 1 tab 12-16 120 mg 1 1/2 drprs 3/4 tsp 1 1/2 tabs 17-23 160 mg 2 drprs 1 tsp 2 tabs 24-30 240 mg 3 drprs 1 1/2 tsp 3 tabs 30-35 320 mg 2 tsp 4 tabs 36-41 360 mg 2 1/4 tsp 4 1/2 tabs 42-47 400 mg 2 1/2 tsp 5 tabs 48-53 480 mg 3 tsp 6 tabs 54-59 520 mg 3 1/4 tsp 6 1/2 tabs 60-64 560 mg 3 1/2 tsp 7 tabs 65-70 600 mg 3 3/4 tsp 7 1/2 tabs 71-76 640 mg 4 tsp 8 tabs 77-82 720 mg 4 1/2 tsp 9 tabs 83-88 800 mg 5 tsp 10 tabs >89 pounds or adults 650 mg to 900 mg Acetaminophen can be repeated every four hours. Maximum dose not to exceed 4000 mg a day. These maximum recommended dosages are slightly higher than the dosages written on the product container, but these dosages are very safe and below the toxic dosage for acetaminophen. ICE PACKS: Apply ice packs frequently against the painful area. Many different schedules are recommended, such as "20 minutes on, 20 minutes off" or "one hour ice, two hours rest." If you need to work, you may need to go longer between ice treatments. You should plan to have the area ice packed AT LEAST one fourth of the time. The ice should be applied over the wrap, tape, or splint, or over a layer of cloth -- not directly against the skin. Some ice bags have a built-in cloth and can be put directly on the skin. WARM PACKS: After approximately two days, apply gentle heat (such as a heating pad or hot water bottle) for about 20 to 30 minutes about every two hours -- at least four times daily. Warmth and elevation will help you make a more rapid recovery , and will ease the pain considerably. Do not use HOT heat, and never apply heat for longer than 30 minutes. The continuous heat can invisibly damage skin and muscles -- even when no burn is seen on the surface. Damaged muscles can make you MORE sore. MUSCLE RELAXERS: Muscle relaxing medications are usually prescribed for acute muscle spasm or injury to the neck and back. They are often combined with antiinflammatory pain medication for increased relief. You may stop the muscle relaxer when the pain and stiffness have improved. Start the medication again if spasms recur. Muscle relaxers may cause drowsiness, especially with the first dose. Do not operate machinery or drive while under the effects of the medication. Most muscle relaxers last up to 24 hours. Do not combine the medication with alcohol. FOLLOW-UP CARE: If you have been referred to a physician for follow-up care, call the physician s office for an appointment as you were instructed or within the next two days. If you experience worsening or a significant change in your symptoms, notify the physician immediately or return to the Emergency Department at any time for re-evaluation. Please be sure to call your place of employment first thing in the morning and let them know that she was injured at work and was seen in the emergency room. You will need to follow-up with your Workmen's Comp. doctor as we do not file workman comp forms. Prescriptions: Ibuprofen 800 mg PO Q8HP PRN #20 tablet PRN Reason: Cyclobenzaprine HCl [Flexeril 10 mg Tablet] 10 mg PO TIDP PRN #15 tab PRN Reason: Mupirocin [Bactroban 2% Ointment 22 gm] 1 applic TP TID #1 tube Prednisone [Sterapred Ds] 1 pkg PO ASDIR PRN 12 Days tab.[id number] PRN Reason: Forms: Return to Work Referrals: BETO MONTOYA DPM [ACTIVE STAFF] - Follow up as needed TIKI ALCARAZ MD [ACTIVE STAFF] - Follow up as needed
[2018-04-04 20:23] LABS: APPEARANCE,URINE SLIGHTLY-CLOUDY; BILIRUBIN,URINE NEGATIVE (NEGATIVE); COLOR,URINE YELLOW; GLUCOSE, URINE NEGATIVE (NEGATIVE); KETONES,URINE NEGATIVE (NEGATIVE); LEUKOCYTE ESTERASE,URINE TRACE (NEGATIVE); NITRITE,URINE NEGATIVE (NEGATIVE); PROTEIN,URINE NEGATIVE (NEGATIVE); URINE SPECIFIC GRAVITY 1.018; UROBILINOGEN,URINE NEGATIVE mg/dL (<2.0)
[2018-04-04] MEDS ORDERED: IBUPROFEN 800 MG TABLET PO ONE (20:45)
--- NOTE | 2018-04-04 20:53 | RADIOLOGY REPORT (SQ) ---
EXAM DESCRIPTION: ANKLE RIGHT COMPLETE COMPLETED DATE/TIME: 04/04/2018 8:02 pm REASON FOR STUDY: pain and injury COMPARISON: Right foot x-ray 04/04/2018. NUMBER OF VIEWS: Three views. TECHNIQUE: AP, lateral, and oblique radiographic images acquired of the right ankle. LIMITATIONS: None. FINDINGS: MINERALIZATION: Normal. BONES: No acute fracture or dislocation. The ankle mortise is maintained. SOFT TISSUES: There is mild diffuse soft tissue swelling. No radiopaque foreign body. IMPRESSION: Mild diffuse soft tissue swelling. No radiographic evidence for acute fracture at the r ight ankle. TECHNICAL DOCUMENTATION: JOB ID: [id number] [id number] [employer]- All Rights Reserved Reading location - IP/workstation name: [email or web address]
--- NOTE | 2018-04-04 21:08 | RADIOLOGY REPORT (SQ) ---
EXAM DESCRIPTION: FOOT RIGHT COMPLETE COMPLETED DATE/TIME: 04/04/2018 8:02 pm REASON FOR STUDY: pain and injury COMPARISON: Right ankle x-ray 04/04/2018. NUMBER OF VIEWS: Three views. TECHNIQUE: AP, lateral and oblique radiographic images acquired of the right foot. LIMITATIONS: None. FINDINGS: MINERALIZATION: Normal. BONES: No acute fracture or dislocation. No worrisome bone lesions. SOFT TISSUES: Mild diffuse soft tissue swelling. No radiopaque foreign body. IMPRESSION: Mild diffuse soft tissue swelling. No radiographic evidence for acute fracture at the r ight foot . TECHNICAL DOCUMENTATION: JOB ID: [id number] [employer]- All Rights Reserved Reading location - IP/workstation name: [email or web address]
[2018-04-04] MEDS ORDERED: CEFTRIAXONE 1 GM/D5W RTU 1 GM/50 ML RTUPB IV ONE (21:17)
[2018-04-04] MEDS ORDERED: CYCLOBENZAPRINE HCL 10 MG TABLET PO ONE (21:34)
[2018-04-04] MEDS ORDERED: DIPHENHYDRAMINE HCL 25 MG CAPSULE PO ONE (21:34)
[2018-04-04] MEDS ORDERED: DIPHENHYDRAMINE HCL 50 MG/ML VIAL IV ONE (21:58)
[2018-04-04] MEDS ORDERED: FAMOTIDINE INJ/PF 20 MG/2 ML SDV IV ONE (21:58)
[2018-04-04 22:03] LABS: ABSOLUTE BASOPHILS # (AUTO) 0.1 10^3/uL (0.0-0.2); ABSOLUTE EOSINOPHILS # (AUTO) 0.4 10^3/uL (0.0-0.6); ABSOLUTE LYMPHOCYTES (AUTO) 2.5 10^3/uL (0.5-4.7); ABSOLUTE MONOCYTES (AUTO) 0.5 10^3/uL (0.1-1.4); ABSOLUTE NEUT (AUTO) 4.6 10^3/uL (1.7-8.2); BASOPHILS % (AUTO) 0.7 % (0-2); HEMATOCRIT 39.1 % (36.0-47.0); HEMOGLOBIN 12.9 g/dL (12.0-15.5); LYMPHOCYTES % (AUTO) 31.3 % (13-45); MEAN CORPUSCULAR HEMOGLOBIN 26.7 pg (27.0-33.4); MEAN CORPUSCULAR VOLUME 81 fl (80-97); MONOCYTES % (AUTO) 5.7 % (3-13); PLATELET COUNT 321 10^3/uL (150-450); RED BLOOD COUNT 4.82 10^6/uL (3.72-5.28); RED CELL DISTRIBUTION WIDTH 15.2 % (11.5-14.0); SEGMENTED NEUTROPHILS % (AUTO) 57.3 % (42-78); TOTAL CELLS COUNTED % (AUTO) 100 %; WHITE BLOOD COUNT 7.9 10^3/uL (4.0-10.5)
[2018-04-04] MEDS ORDERED: METHYLPREDNISOLONE INJ 125 MG/2 ML SDV IV ONE (22:05)
[2018-04-04] MEDS ORDERED: FAMOTIDINE 20 MG TABLET PO ONE (22:05)
[2018-04-04] MEDS ORDERED: ONDANSETRON HCL INJ/PF 4 MG/2 ML SDV IV ONE (22:18)
[2018-04-04] MEDS ORDERED: NORMAL SALINE 1000 ML 1,000 ML IV ONE (22:20)
[2018-04-04] MEDS ORDERED: ONDANSETRON HCL INJ/PF 4 MG/2 ML SDV ONE (22:21)
[2018-04-04 22:25] LABS: ALANINE AMINOTRANSFERASE 18 U/L (9-52); ALBUMIN 4.5 g/dL (3.5-5.0); ALKALINE PHOSPHATASE 77 U/L (38-126); ANION GAP 11 (5-19); ASPARTATE AMINO TRANSFERASE 19 U/L (14-36); BILIRUBIN,DIRECT 0.2 mg/dL (0.0-0.4); BILIRUBIN,TOTAL 0.2 mg/dL (0.2-1.3); BLOOD UREA NITROGEN 11 mg/dL (7-20); C-REACTIVE PROTEIN 8.4 mg/L (<10.0); CALCIUM 9.7 mg/dL (8.4-10.2); CARBON DIOXIDE 24 mmol/L (22-30); CHLORIDE 106 mmol/L (98-107); GLUCOSE 87 mg/dL (75-110); POTASSIUM 3.8 mmol/L (3.6-5.0); SODIUM 140.6 mmol/L (137-145)
[2018-04-04] MEDS ORDERED: MUPIROCIN CALCIUM 2% CREAM 15 GM TP ONE (23:08)
[2018-04-04] MEDS ORDERED: DOXYCYCLINE HYCLATE INJ 100 MG VIAL IV ONE (23:38)
[2018-04-05] MEDS ORDERED: DOXYCYCLINE HYCLATE 100 MG TABLET PO ONE (00:12)
[2018-04-05 00:51] VITALS: BP 109/75
== END 2018-04-05 00:50 | disposition home or self-care (01) ==
LOC: ER 19:07
DX: L03.115 Cellulitis of right lower limb (principal); L30.9 Dermatitis, unspecified; M54.5 Low back pain; S93.401A Sprain of unspecified ligament of right ankle, initial encounter; T78.40XA Allergy, unspecified, initial encounter; X58.XXXA Exposure to other specified factors, initial encounter; Y93.F9 Activity, other caregiving; Y99.0 Civilian activity done for income or pay; F17.210 Nicotine dependence, cigarettes, uncomplicated; Z88.6 Allergy status to analgesic agent
CPT/HCPCS: 99284; 96361; 96374; 96375; 36415; 87040; 87086; 87070; 87205; 85025; 81025; 87075; 86140; 87077; 80053; 81001; 87186; 73610; 73630; J1200; J2930; J2405; J7030; S0028; J0696; J3490

== ENCOUNTER 2018-07-05 18:02 | Emergency (ER) | payer SELFPAY ==
[2018-07-05 18:21] VITALS: BP 119/77
== END 2018-07-05 20:59 | disposition left against medical advice (07) ==
LOC: ER 18:02
DX: Z53.21 Procedure and treatment not carried out due to patient leaving prior to being seen by health care provider (principal)
CPT/HCPCS: 87070; 87880

== ENCOUNTER 2018-08-12 10:23 | Emergency (ER) | payer SELFPAY ==
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
--- NOTE | 2018-08-12 12:23 | RADIOLOGY REPORT (SQ) ---
EXAM DESCRIPTION: U/S [id number] TRNABD 1GES W/ODOP COMPLETED DATE/TIME: 08/12/2018 11:39 am REASON FOR STUDY: , abdominal pain COMPARISON: No previous this TECHNIQUE: Transabdominal static and realtime grayscale images acquired of the pelvis. Additional se lected spectral and color Doppler images recorded. All images stored on PACs. bHCG: None available CLINICAL DATES: Last menses 06/19/2018 LIMITATIONS: None. FINDINGS: FETUS: Living intrauterine . ULTRASOUND EGA: 6 weeks 2 days ULTRASOUND JAMA: 04/05/2019 CRL: 4.9 mm FHR: 117 beats per minute. SUBCHORIONIC BLEED: No SIZE OF BLEED: Not applicable. UTERUS: No masses. No anomalies. 9.6 x 5.1 x 5.9 cm in size CERVICAL LENGTH: Closed, 3 cm in length RIGHT ADNEXA: Not visualized due to adnexal bowel gas LEFT ADNEXA: Normal ovary with normal vascular flow. Left ovary 6.3 x 4.3 x 4.3 cm in size. No adnexal free fluid. No adnexal masses. FREE FLUID: None. OTHER: No other significant finding. IMPRESSION: LIVING INTRAUTERINE . EGA of 6 weeks 2 days Trimester of : First - 0 to 13 weeks. TECHNICAL DOCUMENTATION: JOB ID: [id number] [employer]- All Rights Reserved rev-04/09 Reading location - IP/workstation name: [email or web address]
[2018-08-12 12:43] VITALS: BP 113/74
== END 2018-08-12 12:35 | disposition home or self-care (01) ==
LOC: ER 10:23
DX: O9A.211 Injury, poisoning and certain other consequences of external causes complicating pregnancy, first trimester (principal); O26.891 Other specified pregnancy related conditions, first trimester; R10.9 Unspecified abdominal pain; M54.9 Dorsalgia, unspecified; O99.52 Diseases of the respiratory system complicating childbirth; J45.909 Unspecified asthma, uncomplicated; X50.0XXA Overexertion from strenuous movement or load, initial encounter; Z3A.01 Less than 8 weeks gestation of pregnancy
CPT/HCPCS: 76801; 99284

== ENCOUNTER 2018-09-09 21:48 | Emergency (ER) | payer MEDICAID ==
[2018-09-09 22:07] VITALS: BP 118/70
[2018-09-09] MEDS ORDERED: ACETAMINOPHEN 325 MG TABLET PO ONE (22:45)
--- NOTE | 2018-09-09 22:45 | ER Document Report ---
ED General - General Chief Complaint: Chest Pain Stated Complaint: CHEST PAIN, SWEATING, ABDOMINAL PAIN Time Seen by Provider: 09/09/18 22:44 Mode of Arrival: Ambulatory Information source: Patient TRAVEL OUTSIDE OF THE [place] IN LAST 30 DAYS: No - HPI Patient complains to provider of: Cough, chest pain, abdominal pain, fever, chills Onset: Other - 3 To 4 days Onset/Duration: Gradual Quality of pain: Achy Severity: Mild Pain Level: 2 Associated symptoms: Body/muscle aches, Chest pain, Chills, Nonproductive cough , Nausea Exacerbated by: Denies Relieved by: Denies Similar symptoms previously: No Recently seen / treated by doctor: No Notes: Patient is a 23-year-old female who is approximately 4 months presenting to the emergency room today complaining of 3-day history of upper respiratory symptoms including chills, fever, body aches, upper abdominal pain, nausea, nonproductive cough, subjective fever and chills, 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, denies any dysuria or hematuria, no vaginal bleeding or discharge, no contraction type pelvic pain - Related Data Allergies/Adverse Reactions: ceftriaxone [From Rocephin] Allergy (Verified 08/12/18 10:23) sulfamethoxazole [From Bactrim] Allergy (Verified 08/12/18 10:23) trimethoprim [From Bactrim] Allergy (Verified 08/12/18 10:23) Past Medical History - General Information source: Patient - Social History Smoking Status: Unknown if Ever Smoked Family History: Reviewed & Not Pertinent Patient has suicidal ideation: No Patient has homicidal ideation: No Pulmonary Medical History: Reports: Hx Asthma Renal/ Medical History: Denies: Hx Peritoneal Dialysis Musculoskeletal Medical History: Reports Hx Musculoskeletal Trauma Skin Medical History: Reports Hx Cellulitis, Reports Hx Eczema Psychiatric Medical History: Denies: Hx Depression Past Surgical History: Reports: Hx Orthopedic Surgery - COCCYX, Other - Pilonidal cyst removed - Immunizations Hx Diphtheria, Pertussis, Tetanus Vaccination: Yes Review of Systems - Review of Systems Constitutional: See HPI EENT: See HPI Cardiovascular: See HPI Respiratory: See HPI Gastrointestinal: See HPI Genitourinary: No symptoms reported Female Genitourinary: Musculoskeletal: No symptoms reported Skin: No symptoms reported Hematologic/Lymphatic: No symptoms reported Neurological/Psychological: No symptoms reported -: Yes All other systems reviewed and negative Physical Exam - Vital signs Vitals: Temp Pulse Resp BP Pulse Ox 98.3 F 93 16 118/70 100 09/09/18 21:48 09/09/18 21:48 09/09/18 21:48 09/09/18 21:48 09/09/18 21:48 Interpretation: Normal - General General appearance: Appears well, Alert In distress: None - HEENT Head: Normocephalic, Atraumatic Eyes: Normal Conjunctiva: Normal Extraocular movements intact: Yes Eyelashes: Normal Pupils: PERRL Pharynx: Erythema - Respiratory Respiratory status: No respiratory distress Chest status: Nontender Breath sounds: Normal Chest palpation: Normal - Cardiovascular Rhythm: Regular Heart sounds: Normal auscultation Murmur: No - Abdominal Inspection: Gravid female Distension: No distension Bowel sounds: Normal Tenderness: Tender - Mild diffuse Organomegaly: No organomegaly - Back Back: Normal, Nontender - Extremities General upper extremity: Normal inspection, Nontender, Normal color, Normal ROM , Normal temperature General lower extremity: Normal inspection, Nontender, Normal color, Normal ROM , Normal temperature, Normal weight bearing. 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 there, urinalysis is unremarkable, she is otherwise healthy appearing with mild posterior pharynx erythema and a normal urinalysis, patient discharged with instructions for follow-up and advised to return if symptoms worsen, patient acknowledges understanding and agreement with this plan - Vital Signs Vital signs: Temp Pulse Resp BP Pulse Ox 98.3 F 93 16 118/70 100 09/09/18 21:48 09/09/18 21:48 09/09/18 21:48 09/09/18 21:48 09/09/18 21:48 - Laboratory Laboratory results interpreted by me: 09/09/18 22:44 Urine Urobilinogen 2.0 H Ur Leukocyte Esterase TRACE H Discharge - Discharge Clinical Impression: Viral illness Condition: Stable Disposition: HOME, SELF-CARE Instructions: Viral Syndrome ([facility]) Additional Instructions: Follow up with your primary care provider in one to 2 days. Return to the emergency room immediately if symptoms worsen or any additional concerns. Forms: Return to Work
[2018-09-09 23:45] LABS: APPEARANCE,URINE SLIGHTLY-CLOUDY; BILIRUBIN,URINE NEGATIVE (NEGATIVE); COLOR,URINE YELLOW; GLUCOSE, URINE NEGATIVE (NEGATIVE); KETONES,URINE NEGATIVE (NEGATIVE); LEUKOCYTE ESTERASE,URINE TRACE (NEGATIVE); NITRITE,URINE NEGATIVE (NEGATIVE); PROTEIN,URINE NEGATIVE (NEGATIVE); URINE SPECIFIC GRAVITY 1.017
--- NOTE | 2018-09-10 08:02 | EKG REPORT ---
SEVERITY:- NORMAL ECG - SINUS RHYTHM : Confirmed by: Fabiano Montes MD 10-Sep-2018 08:01:26
== END 2018-09-10 00:36 | disposition home or self-care (01) ==
LOC: ER 21:48
DX: O26.91 Pregnancy related conditions, unspecified, first trimester (principal); B34.9 Viral infection, unspecified; R07.9 Chest pain, unspecified; R05 Cough; M79.10 Myalgia, unspecified site; Z3A.12 12 weeks gestation of pregnancy; Z88.3 Allergy status to other anti-infective agents
CPT/HCPCS: 93005; 99285; 87086; 81001; 93010; J3490

== ENCOUNTER 2018-10-16 03:06 | Emergency (ER) | payer MEDICAID ==
[2018-10-16] MEDS ORDERED: METOCLOPRAMIDE HCL INJ/PF 10 MG/2 ML SDV IV ONE (03:47)
[2018-10-16] MEDS ORDERED: NORMAL SALINE 1000 ML 1,000 ML IV ONE (03:47)
[2018-10-16 03:58] LABS: ABSOLUTE EOSINOPHILS # (AUTO) 0.2 10^3/uL (0.0-0.6); ABSOLUTE LYMPHOCYTES (AUTO) 1.1 10^3/uL (0.5-4.7); ABSOLUTE MONOCYTES (AUTO) 0.3 10^3/uL (0.1-1.4); BASOPHILS % (AUTO) 0.2 % (0-2); EOSINOPHILS % (AUTO) 2.9 % (0-6); HEMATOCRIT 34.6 % (36.0-47.0); HEMOGLOBIN 11.8 g/dL (12.0-15.5); LYMPHOCYTES % (AUTO) 14.6 % (13-45); MEAN CORPUSCULAR HEMOGLOBIN 27.1 pg (27.0-33.4); MEAN CORPUSCULAR HGB CONC 33.9 g/dL (32.0-36.0); MEAN CORPUSCULAR VOLUME 80 fl (80-97); MONOCYTES % (AUTO) 4.3 % (3-13); PLATELET COUNT 295 10^3/uL (150-450); RED BLOOD COUNT 4.33 10^6/uL (3.72-5.28); RED CELL DISTRIBUTION WIDTH 14.3 % (11.5-14.0); TOTAL CELLS COUNTED % (AUTO) 100 %; WHITE BLOOD COUNT 7.7 10^3/uL (4.0-10.5)
--- NOTE | 2018-10-16 03:59 | ER Document Report ---
ED GI/ - General Chief Complaint: Vomiting/Diarrhea Stated Complaint: VOMITING, ABDOMINAL PAIN Time Seen by Provider: 10/16/18 03:34 Notes: Patient is a 23-year-old female, at 15 weeks 4 days by first trimester ultrasound, that comes to the emergency department for chief complaint of abdominal pain, vomiting, diarrhea. Symptoms started 4 days ago initially with diarrhea, she developed vomiting about a day after, she denies fever or chills. She states that she vomited 3 times today when she tried to eat. She denies vaginal bleeding or discharge, dysuria, flank pain. She denies any daily medications, denies any surgeries. Patient notes that her 1-year-old child also has vomiting and diarrhea symptoms. TRAVEL OUTSIDE OF THE [place] IN LAST 30 DAYS: No - Related Data Allergies/Adverse Reactions: ceftriaxone [From Rocephin] Allergy (Verified 08/12/18 10:23) sulfamethoxazole [From Bactrim] Allergy (Verified 08/12/18 10:23) trimethoprim [From Bactrim] Allergy (Verified 08/12/18 10:23) Past Medical History - General Information source: Patient - Social History Smoking Status: Never Smoker Frequency of alcohol use: None Drug Abuse: None Lives with: Family Family History: Reviewed & Not Pertinent Pulmonary Medical History: Reports: Hx Asthma Renal/ Medical History: Denies: Hx Peritoneal Dialysis Musculoskeletal Medical History: Reports Hx Musculoskeletal Trauma Skin Medical History: Reports Hx Cellulitis, Reports Hx Eczema Psychiatric Medical History: Denies: Hx Depression Past Surgical History: Reports: Hx Orthopedic Surgery - COCCYX, Other - Pilonidal cyst removed - Immunizations Hx Diphtheria, Pertussis, Tetanus Vaccination: Yes Review of Systems - Review of Systems Constitutional: No symptoms reported EENT: No symptoms reported Cardiovascular: No symptoms reported Respiratory: No symptoms reported Gastrointestinal: See HPI Genitourinary: No symptoms reported Female Genitourinary: See HPI Musculoskeletal: No symptoms reported Skin: No symptoms reported Hematologic/Lymphatic: No symptoms reported Neurological/Psychological: No symptoms reported Physical Exam - Vital signs Vitals: Temp Pulse Resp BP Pulse Ox 97.5 F 103 H 18 105/64 97 10/16/18 03:14 10/16/18 03:14 10/16/18 03:14 10/16/18 03:14 10/16/18 03:14 - Notes Notes: GENERAL: Alert, interacts well. No acute distress. HEAD: Normocephalic, atraumatic. EYES: Pupils equal, round, and reactive to light. Extraocular movements intact. ENT: Oral mucosa moist, tongue midline. Oropharynx unremarkable. Airway patent. Nares patent, no nasal septal hematoma, TM's intact. NECK: Full range of motion. Supple. Trachea midline. LUNGS: Clear to auscultation bilaterally, no wheezes, rales, or rhonchi. No respiratory distress. HEART: Regular rate and rhythm. No murmur ABDOMEN: Mild generalized upper abdominal tenderness, nonspecific, no guarding. Lower abdomen is benign. Non-distended. Bowel sounds present in all 4 quadrants. GENITOURINARY: Deferred EXTREMITIES: Moves all 4 extremities spontaneously. No edema, normal radial and dorsalis pedis pulses bilaterally. No cyanosis. BACK: no cervical, thoracic, lumbar midline tenderness. No saddle anesthesia, normal distal neurovascular exam. NEUROLOGICAL: Alert and oriented x3. Normal speech. [cranial nerves II through XII grossly intact]. PSYCH: Normal affect, normal mood. SKIN: Warm, dry, normal turgor. No rashes or lesions noted. Course - Re-evaluation Re-evalutation: Patient with borderline tachycardia initially, dry mucous membranes, however abdominal exam is benign except for mild general upper abdominal tenderness. No guarding or rigidity. No vaginal bleeding. No fever. Patient was sick contacts with the same symptoms. CBC, chemistry, lipase unremarkable except for slightly low bicarbonate at 20. Urinalysis shows ketones but unremarkable otherwise. Patient was given Reglan, IV fluids, afterwards she was given Pepcid and p.o. fluids. Patient tolerated this well, on reevaluation she is asleep, after awakening patient states she feels 100% better. Borderline tachycardia has resolved. I have low suspicion of acute abdomen or complication based on patient's reported symptoms , her exam, and her evaluation. Discharging with Reglan, Pepcid, discussed follow-up and return precautions in detail, patient states satisfaction and agreement. - Vital Signs Vital signs: Temp Pulse Resp BP Pulse Ox 97.5 F 103 H 18 100/63 100 10/16/18 03:14 10/16/18 03:14 10/16/18 03:14 10/16/18 06:00 10/16/18 06:01 - Laboratory Result Diagrams: 10/16/18 03:30 10/16/18 03:30 Laboratory results interpreted by me: 10/16/18 10/16/18 10/16/18 03:30 03:30 05:28 Hgb 11.8 L Hct 34.6 L RDW 14.3 H Carbon Dioxide 20 L BUN 4 L Urine Ketones 20 H Ur Leukocyte Esterase SMALL H Discharge - Discharge Clinical Impression: Vomiting and diarrhea, Dehydration Condition: Stable Disposition: HOME, SELF-CARE Additional Instructions: Your workup shows dehydration, no other concerning findings are seen. This is most likely viral and should resolve with time. Start with bland food, you can take the famotidine twice a day for the next few days to help with inflamed upper gastrointestinal tract after vomiting. You can take the Reglan for nausea. You can also take Benadryl with this to help with nausea. Drink plenty of fluids and rest. Follow-up with your provider. Return if you worsen including return or uncontrolled vomiting, severe abdominal pain, bleeding, fever of 100.4 or greater, or any other concerning or worsening symptoms. Prescriptions: Famotidine [Pepcid 20 mg Tablet] 20 mg PO BID #12 tablet Metoclopramide HCl [Reglan] 5 mg PO ASDIR PRN #30 tablet PRN Reason: Forms: Return to Work
[2018-10-16 04:18] LABS: ALANINE AMINOTRANSFERASE 10 U/L (9-52); ALBUMIN 3.9 g/dL (3.5-5.0); ALKALINE PHOSPHATASE 71 U/L (38-126); ANION GAP 12 (5-19); ASPARTATE AMINO TRANSFERASE 15 U/L (14-36); BILIRUBIN,DIRECT 0.1 mg/dL (0.0-0.4); BILIRUBIN,TOTAL 0.3 mg/dL (0.2-1.3); BLOOD UREA NITROGEN 4 mg/dL (7-20); CALCIUM 9.5 mg/dL (8.4-10.2); CARBON DIOXIDE 20 mmol/L (22-30); CHLORIDE 106 mmol/L (98-107); GLUCOSE 87 mg/dL (75-110); POTASSIUM 3.9 mmol/L (3.6-5.0); SODIUM 137.8 mmol/L (137-145); TOTAL PROTEIN 7.3 g/dL (6.3-8.2)
[2018-10-16] MEDS ORDERED: FAMOTIDINE 20 MG TABLET PO ONE (04:38)
[2018-10-16 05:54] LABS: APPEARANCE,URINE SLIGHTLY-CLOUDY; BILIRUBIN,URINE NEGATIVE (NEGATIVE); COLOR,URINE YELLOW; GLUCOSE, URINE NEGATIVE (NEGATIVE); KETONES,URINE 20 mg/dL (NEGATIVE); LEUKOCYTE ESTERASE,URINE SMALL (NEGATIVE); NITRITE,URINE NEGATIVE (NEGATIVE); PROTEIN,URINE NEGATIVE (NEGATIVE); URINE SPECIFIC GRAVITY 1.015; UROBILINOGEN,URINE NEGATIVE mg/dL (<2.0)
[2018-10-16 06:11] VITALS: BP 100/63
== END 2018-10-16 06:57 | disposition home or self-care (01) ==
LOC: ER 03:06
DX: O21.9 Vomiting of pregnancy, unspecified (principal); O26.892 Other specified pregnancy related conditions, second trimester; R19.7 Diarrhea, unspecified; R10.9 Unspecified abdominal pain; O99.282 Endocrine, nutritional and metabolic diseases complicating pregnancy, second trimester; E86.0 Dehydration; O99.512 Diseases of the respiratory system complicating pregnancy, second trimester; J45.909 Unspecified asthma, uncomplicated; Z3A.15 15 weeks gestation of pregnancy; Z88.1 Allergy status to other antibiotic agents
CPT/HCPCS: 99284; 96361; 96374; 36415; 83690; 85025; 80053; 81001; J3490; J2765; J7030

== ENCOUNTER 2018-11-24 09:54 | Outpatient (CLI) | payer MEDICAID ==
[2018-11-24 10:45] LABS: APPEARANCE,URINE SLIGHTLY-CLOUDY; BILIRUBIN,URINE NEGATIVE (NEGATIVE); COLOR,URINE YELLOW; GLUCOSE, URINE NEGATIVE (NEGATIVE); KETONES,URINE NEGATIVE (NEGATIVE); LEUKOCYTE ESTERASE,URINE TRACE (NEGATIVE); NITRITE,URINE NEGATIVE (NEGATIVE); PROTEIN,URINE NEGATIVE (NEGATIVE); URINE SPECIFIC GRAVITY 1.015; UROBILINOGEN,URINE NEGATIVE mg/dL (<2.0)
[2018-11-24 11:06] LABS: URINE AMPHETAMINES SCREEN NEGATIVE; URINE BARBITURATES SCREEN NEGATIVE; URINE BENZODIAZEPINES SCREEN NEGATIVE; URINE COCAINE SCREEN NEGATIVE; URINE MARIJUANA (THC) SCREEN NEGATIVE; URINE METHADONE SCREEN NEGATIVE; URINE PHENCYCLIDINE SCREEN NEGATIVE
[2018-11-24] MEDS ORDERED: ACETAMINOPHEN 325 MG TABLET PO ONE (11:34)
[2018-11-24] MEDS ORDERED: ACETAMINOPHEN 325 MG TABLET ONE (11:42)
--- NOTE | 2018-11-24 13:24 | RADIOLOGY REPORT (SQ) ---
EXAM DESCRIPTION: U/S OB LIMITED COMPLETED DATE/TIME: 11/24/2018 12:28 pm REASON FOR STUDY: placental placement, cervical length r/o pre term COMPARISON: 08/12/2018 TECHNIQUE: Limited transabdominal grayscale ultrasound for evaluation of specific requested obstetri arleen parameters. LIMITATIONS: None. FINDINGS: CERVICAL LENGTH: 2.9 cm. Closed. LVP: 10.3 cm. FHR: 153 beats per minute. PRESENTATION: Cephalic. PLACENTA: Anterior ANATOMY: Not assessed OTHER: Question bulging membranes. There were contractions during the study. IMPRESSION: LIMITED OBSTETRICAL ULTRASOUND WITH MEASURED PARAMETERS DELINEATED ABOVE. Trimester of : Second trimester - 13 weeks 1 day to 27 weeks 6 days. TECHNICAL DOCUMENTATION: JOB ID: [id number] [employer]- All Rights Reserved Reading location - IP/workstation name: [email or web address]
== END 2018-11-24 12:55 | disposition home or self-care (01) ==
LOC: LC 09:54
PROVIDERS: ATTEND Obstetrics & Gynecology Gynecology
DX: Z34.92 Encounter for supervision of normal pregnancy, unspecified, second trimester (principal)
CPT/HCPCS: 81001; 80307; 76815; J3490

== ENCOUNTER 2018-12-06 18:55 | Emergency (ER) | payer OTHER, MEDICAID ==
[2018-12-06] MEDS ORDERED: ACETAMINOPHEN 325 MG TABLET PO ONE (19:54)
[2018-12-06] MEDS ORDERED: METOCLOPRAMIDE HCL 10 MG TABLET PO ONE (19:54)
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
[2018-12-06 20:16] LABS: ABSOLUTE BASOPHILS # (AUTO) 0.1 10^3/uL (0.0-0.2); ABSOLUTE EOSINOPHILS # (AUTO) 0.1 10^3/uL (0.0-0.6); ABSOLUTE MONOCYTES (AUTO) 0.7 10^3/uL (0.1-1.4); ABSOLUTE NEUT (AUTO) 5.1 10^3/uL (1.7-8.2); EOSINOPHILS % (AUTO) 1.3 % (0-6); HEMATOCRIT 31.7 % (36.0-47.0); HEMOGLOBIN 10.8 g/dL (12.0-15.5); LYMPHOCYTES % (AUTO) 25.3 % (13-45); MEAN CORPUSCULAR HEMOGLOBIN 27.2 pg (27.0-33.4); MEAN CORPUSCULAR VOLUME 80 fl (80-97); MONOCYTES % (AUTO) 9.2 % (3-13); PLATELET COUNT 260 10^3/uL (150-450); RED BLOOD COUNT 3.96 10^6/uL (3.72-5.28); RED CELL DISTRIBUTION WIDTH 14.7 % (11.5-14.0); SEGMENTED NEUTROPHILS % (AUTO) 63.2 % (42-78); TOTAL CELLS COUNTED % (AUTO) 100 %; WHITE BLOOD COUNT 8.1 10^3/uL (4.0-10.5)
[2018-12-06 20:20] LABS: APPEARANCE,URINE SLIGHTLY-CLOUDY; BILIRUBIN,URINE NEGATIVE (NEGATIVE); COLOR,URINE YELLOW; GLUCOSE, URINE NEGATIVE (NEGATIVE); KETONES,URINE NEGATIVE (NEGATIVE); LEUKOCYTE ESTERASE,URINE NEGATIVE (NEGATIVE); NITRITE,URINE NEGATIVE (NEGATIVE); PROTEIN,URINE NEGATIVE (NEGATIVE); URINE SPECIFIC GRAVITY 1.014; UROBILINOGEN,URINE NEGATIVE mg/dL (<2.0)
[2018-12-06 20:38] LABS: ALANINE AMINOTRANSFERASE 19 U/L (9-52); ALBUMIN 3.6 g/dL (3.5-5.0); ALKALINE PHOSPHATASE 61 U/L (38-126); ANION GAP 6 (5-19); ASPARTATE AMINO TRANSFERASE 13 U/L (14-36); BILIRUBIN,DIRECT 0.2 mg/dL (0.0-0.4); BILIRUBIN,TOTAL 0.2 mg/dL (0.2-1.3); BLOOD UREA NITROGEN 3 mg/dL (7-20); CALCIUM 9.8 mg/dL (8.4-10.2); CARBON DIOXIDE 24 mmol/L (22-30); CHLORIDE 108 mmol/L (98-107); GLUCOSE 80 mg/dL (75-110); SODIUM 138.2 mmol/L (137-145); TOTAL PROTEIN 6.6 g/dL (6.3-8.2)
[2018-12-06 22:48] LABS: INTERNATIONAL RATION (INR) 0.98; PROTHROMBIN TIME 13.5 SEC (11.4-15.4)
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
[2018-12-07 00:17] VITALS: BP 112/64
== END 2018-12-07 00:17 | disposition home or self-care (01) ==
LOC: ER 18:55
DX: O26.92 Pregnancy related conditions, unspecified, second trimester (principal); V89.2XXA Person injured in unspecified motor-vehicle accident, traffic, initial encounter; Z3A.22 22 weeks gestation of pregnancy; Z88.3 Allergy status to other anti-infective agents
CPT/HCPCS: 36415; 76815; 80053; 81001; 85025; 85610; 99284

== ENCOUNTER 2018-12-07 00:21 | Outpatient (CLI) | payer OTHER, MEDICAID ==
[2018-12-07 01:36] LABS: URINE AMPHETAMINES SCREEN NEGATIVE; URINE BARBITURATES SCREEN NEGATIVE; URINE BENZODIAZEPINES SCREEN NEGATIVE; URINE COCAINE SCREEN NEGATIVE; URINE MARIJUANA (THC) SCREEN NEGATIVE; URINE METHADONE SCREEN NEGATIVE; URINE PHENCYCLIDINE SCREEN NEGATIVE
== END 2018-12-07 01:09 | disposition home or self-care (01) ==
LOC: LC 00:21
PROVIDERS: ATTEND Obstetrics & Gynecology
PROC: 4A1HXCZ Monitoring of Products of Conception, Cardiac Rate, External Approach (ICD-10-PCS; principal; 2018-12-07)
DX: O26.892 Other specified pregnancy related conditions, second trimester (principal); R10.9 Unspecified abdominal pain; Z3A.23 23 weeks gestation of pregnancy; V49.9XXA Car occupant (driver) (passenger) injured in unspecified traffic accident, initial encounter
CPT/HCPCS: 80307

== ENCOUNTER 2018-12-08 17:50 | Emergency (ER) | payer MEDICAID, OTHER ==
[2018-12-08] MEDS ORDERED: ACETAMINOPHEN 325 MG TABLET PO ONE (19:52)
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
[2018-12-08] MEDS ORDERED: CALCIUM CARBONATE 500 MG TAB.CHEW PO ONE (20:37)
[2018-12-08 21:13] VITALS: BP 108/59
--- NOTE | 2018-12-09 09:22 | EKG REPORT ---
SEVERITY:- OTHERWISE NORMAL ECG - SINUS ARRHYTHMIA, RATE 53-85 : Confirmed by: Jennifer Cormier 09-Dec-2018 09:21:39
== END 2018-12-08 21:15 | disposition home or self-care (01) ==
LOC: ER 17:50
DX: O26.892 Other specified pregnancy related conditions, second trimester (principal); R07.89 Other chest pain; V49.40XA Driver injured in collision with unspecified motor vehicles in traffic accident, initial encounter; O99.612 Diseases of the digestive system complicating pregnancy, second trimester; K30 Functional dyspepsia; O99.512 Diseases of the respiratory system complicating pregnancy, second trimester; J45.909 Unspecified asthma, uncomplicated; O99.412 Diseases of the circulatory system complicating pregnancy, second trimester; I49.9 Cardiac arrhythmia, unspecified; Z3A.23 23 weeks gestation of pregnancy; Z79.899 Other long term (current) drug therapy
CPT/HCPCS: 93005; 99284; 93010; J3490 ×2

== ENCOUNTER 2019-02-02 04:07 | Outpatient (CLI) | payer MEDICAID ==
--- NOTE | 2019-02-02 05:11 | Non Stress Test Report ---
Non Stress Test Datetime Report Generated by CPN: 02/02/2019 05:11 DEMOGRAPHIC EGA NST: 31.1 INDICATION Indication for Study: Other Indication for Study (NST) Other: r/o PROM VITAL SIGNS Temperature - NST: 98.4 MONITORING Monitor Explained: Monitor Explained; Test Explained; Patient Verbalized Understanding Time on Monitor: 02/02/2019 04:30 Time off Monitor: 02/02/2019 05:02 NST Duration: 32 NST INTERVENTIONS NST Interventions: PO Hydration Physician Notified NST: Melvin BABY A: [id number] BABY A Movement : Present Contraction Frequency : none FHR Baseline : 135 Accelerations : 15X15 Decelerations : None Variability : Moderate 6-25bpm NST Review: Meets Criteria for Reactive NST NST Review and Verified By : Sagar Mederos RN NST Results: Reactive NST REPORT Report Trigger: Send Report
== END 2019-02-02 05:15 | disposition home or self-care (01) ==
LOC: LC 04:07
PROVIDERS: ATTEND Obstetrics & Gynecology
PROC: 4A1HXCZ Monitoring of Products of Conception, Cardiac Rate, External Approach (ICD-10-PCS; principal; 2019-02-02)
DX: Z34.93 Encounter for supervision of normal pregnancy, unspecified, third trimester (principal)
CPT/HCPCS: 59025; 84112

== ENCOUNTER 2019-02-06 13:13 | Outpatient (CLI) | payer MEDICAID ==
[2019-02-06 13:52] LABS: BACTERIA (WET MOUNT) 4+ BACTERIA SEEN; EPITHELIALS (WET MOUNT) 4+ EPITHELIALS SEEN; T.VAGINALIS (WET MOUNT) NO TRICHOMONAS SEEN; WBCS (WET MOUNT) 1+ WBCS SEEN; YEAST (WET MOUNT) NO YEAST SEEN
[2019-02-06 13:54] LABS: APPEARANCE,URINE SLIGHTLY-CLOUDY; BILIRUBIN,URINE NEGATIVE (NEGATIVE); COLOR,URINE YELLOW; GLUCOSE, URINE NEGATIVE (NEGATIVE); KETONES,URINE NEGATIVE (NEGATIVE); LEUKOCYTE ESTERASE,URINE NEGATIVE (NEGATIVE); NITRITE,URINE NEGATIVE (NEGATIVE); PROTEIN,URINE NEGATIVE (NEGATIVE); URINE SPECIFIC GRAVITY 1.012; UROBILINOGEN,URINE NEGATIVE mg/dL (<2.0)
[2019-02-06 14:11] LABS: URINE AMPHETAMINES SCREEN NEGATIVE; URINE BARBITURATES SCREEN NEGATIVE; URINE BENZODIAZEPINES SCREEN NEGATIVE; URINE COCAINE SCREEN NEGATIVE; URINE MARIJUANA (THC) SCREEN NEGATIVE; URINE METHADONE SCREEN NEGATIVE; URINE PHENCYCLIDINE SCREEN NEGATIVE
[2019-02-06 15:18] LABS: CHLAM PCR NOT DETECTED (NOT DETECT); GON PCR NOT DETECTED (NOT DETECT)
== END 2019-02-06 14:30 | disposition home or self-care (01) ==
LOC: LC 13:13
PROVIDERS: ATTEND Obstetrics & Gynecology Gynecology
DX: O36.8390 Maternal care for abnormalities of the fetal heart rate or rhythm, unspecified trimester, not applicable or unspecified (principal)
CPT/HCPCS: 80307; 81001; 87210; 87491; 87591

== ENCOUNTER 2019-03-13 19:36 | Outpatient (CLI) | payer MEDICAID ==
[2019-03-13 20:07] LABS: APPEARANCE,URINE CLEAR; BILIRUBIN,URINE NEGATIVE (NEGATIVE); COLOR,URINE YELLOW; GLUCOSE, URINE NEGATIVE (NEGATIVE); KETONES,URINE NEGATIVE (NEGATIVE); LEUKOCYTE ESTERASE,URINE NEGATIVE (NEGATIVE); NITRITE,URINE NEGATIVE (NEGATIVE); PROTEIN,URINE NEGATIVE (NEGATIVE); URINE SPECIFIC GRAVITY 1.012
[2019-03-13 20:21] LABS: URINE AMPHETAMINES SCREEN NEGATIVE; URINE BARBITURATES SCREEN NEGATIVE; URINE BENZODIAZEPINES SCREEN NEGATIVE; URINE COCAINE SCREEN NEGATIVE; URINE MARIJUANA (THC) SCREEN NEGATIVE; URINE METHADONE SCREEN NEGATIVE; URINE PHENCYCLIDINE SCREEN NEGATIVE
== END 2019-03-13 21:47 | disposition home or self-care (01) ==
LOC: LC 19:36
PROVIDERS: ATTEND Obstetrics & Gynecology Gynecology
PROC: 4A1HXCZ Monitoring of Products of Conception, Cardiac Rate, External Approach (ICD-10-PCS; principal; 2019-03-13)
DX: O47.03 False labor before 37 completed weeks of gestation, third trimester (principal); Z3A.36 36 weeks gestation of pregnancy
CPT/HCPCS: 59025; 80307; 81001

== ENCOUNTER 2019-03-28 02:50 | Inpatient (IN) | payer MEDICAID ==
--- NOTE | 2019-03-28 02:56 | Non Stress Test Report ---
Non Stress Test Datetime Report Generated by CPN: 03/28/2019 02:55 DEMOGRAPHIC EGA NST: 36.5 INDICATION Indication for Study: Ordered by Provider MONITORING Monitor Explained: Monitor Explained; Test Explained; Patient Verbalized Understanding Time on Monitor: 03/13/2019 21:10 Time off Monitor: 03/13/2019 21:41 NST Duration: 31 NST INTERVENTIONS NST Interventions: PO Hydration Physician Notified NST: Dr. Degroot BABY A: [id number] BABY A Movement : Present Contraction Frequency : rare FHR Baseline : 135 Accelerations : 15X15 Decelerations : Variable Variability : Moderate 6-25bpm NST Review: Meets Criteria for Reactive NST NST Review and Verified By : Sagar Mendez RN NST Results: Reactive NST REPORT Report Trigger: Send Report
[2019-03-28 03:45] LABS: APPEARANCE,URINE CLEAR; BILIRUBIN,URINE NEGATIVE (NEGATIVE); COLOR,URINE YELLOW; GLUCOSE, URINE NEGATIVE (NEGATIVE); KETONES,URINE NEGATIVE (NEGATIVE); LEUKOCYTE ESTERASE,URINE NEGATIVE (NEGATIVE); NITRITE,URINE NEGATIVE (NEGATIVE); PROTEIN,URINE NEGATIVE (NEGATIVE); URINE SPECIFIC GRAVITY 1.013
[2019-03-28 04:03] LABS: URINE AMPHETAMINES SCREEN NEGATIVE; URINE BARBITURATES SCREEN NEGATIVE; URINE BENZODIAZEPINES SCREEN NEGATIVE; URINE COCAINE SCREEN NEGATIVE; URINE MARIJUANA (THC) SCREEN NEGATIVE; URINE METHADONE SCREEN NEGATIVE; URINE PHENCYCLIDINE SCREEN NEGATIVE
[2019-03-28] MEDS ORDERED: RINGERS SOLUTION,LACTATED 1,000 ML IV ONE (05:10)
[2019-03-28] MEDS ORDERED: RINGERS SOLUTION,LACTATED 1,000 ML IV PRN (05:10)
[2019-03-28] MEDS ORDERED: PENICILLIN G POTASSIUM 5,000,000 UNIT in DEXTROSE 5%-WATER 100 ML IV ONE (05:10)
[2019-03-28] MEDS ORDERED: LIDOCAINE 1% INJ-PF (10 MG/ML) 30 ML SDV ONE (05:18)
[2019-03-28] MEDS ORDERED: MISOPROSTOL 0.2 MG TABLET ONE (05:18)
[2019-03-28] MEDS ORDERED: PENICILLIN G-K 5 MILLION UNIT VIAL ONE ×2 (05:19→09:58)
[2019-03-28] MEDS ORDERED: OXYTOCIN/NORMAL SALINE 20 UNIT/1,000 ML RTUINJ ONE (05:19)
[2019-03-28] MEDS ORDERED: ACETAMINOPHEN 325 MG TABLET ONE (05:45)
[2019-03-28 05:49] LABS: ABSOLUTE EOSINOPHILS # (AUTO) 0.2 10^3/uL (0.0-0.6); ABSOLUTE LYMPHOCYTES (AUTO) 1.8 10^3/uL (0.5-4.7); ABSOLUTE MONOCYTES (AUTO) 0.6 10^3/uL (0.1-1.4); ABSOLUTE NEUT (AUTO) 6.5 10^3/uL (1.7-8.2); BASOPHILS % (AUTO) 0.5 % (0-2); HEMATOCRIT 32.6 % (36.0-47.0); HEMOGLOBIN 10.7 g/dL (12.0-15.5); LYMPHOCYTES % (AUTO) 20.1 % (13-45); MEAN CORPUSCULAR HEMOGLOBIN 23.9 pg (27.0-33.4); MEAN CORPUSCULAR HGB CONC 32.8 g/dL (32.0-36.0); MEAN CORPUSCULAR VOLUME 73 fl (80-97); MONOCYTES % (AUTO) 6.5 % (3-13); PLATELET COUNT 241 10^3/uL (150-450); RED BLOOD COUNT 4.49 10^6/uL (3.72-5.28); RED CELL DISTRIBUTION WIDTH 16.1 % (11.5-14.0); SEGMENTED NEUTROPHILS % (AUTO) 70.9 % (42-78); TOTAL CELLS COUNTED % (AUTO) 100 %; WHITE BLOOD COUNT 9.2 10^3/uL (4.0-10.5)
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
[2019-03-28] MEDS ORDERED: EPHEDRINE SULFATE INJ 50 MG/1 ML AMPULE ONE (07:19)
[2019-03-28] MEDS ORDERED: FENTANYL/BUPIVACAINE/NS/PF 300 MCG/150 ML RTUINJ EPI ONE (07:20)
[2019-03-28] MEDS ORDERED: BUPIVACAINE HCL 0.25 % INJ/PF (2.5 MG/1 ML) 30 ML VIAL ONE (07:20)
[2019-03-28] MEDS ORDERED: PENICILLIN G POTASSIUM 2,500,000 UNIT in DEXTROSE 5%-WATER 50 ML IV SCH (09:11)
[2019-03-28] MEDS ORDERED: PSEUDOEPHEDRINE HCL 30 MG TABLET PO PRN (11:03)
[2019-03-28] MEDS ORDERED: DIBUCAINE 1% OINTMENT 56 GM TP PRN (11:03)
[2019-03-28] MEDS ORDERED: DIPH/PERTUSS(ACELL)/TETANUS VAC/PF 0.5 ML SYR (>=10YO) IM PRN (11:03)
[2019-03-28] MEDS ORDERED: ACETAMINOPHEN 650 MG SUPP.RECT PR PRN (11:03)
[2019-03-28] MEDS ORDERED: MAGNESIUM HYDROXIDE SUSP 30 ML UDCUP PO PRN (11:03)
[2019-03-28] MEDS ORDERED: GLYCERIN/WITCH HAZEL LEAF 1 EACH MED..WIPE TP PRN (11:03)
[2019-03-28] MEDS ORDERED: PROMETHAZINE HCL INJ 25 MG/1 ML VIAL IV PRN (11:03)
[2019-03-28] MEDS ORDERED: PROMETHAZINE HCL 25 MG TABLET PO PRN (11:03)
[2019-03-28] MEDS ORDERED: NA PHOS,M-B/NA PHOS,DI-BA (ADULT) 133 ML ENEMA PR PRN (11:03)
[2019-03-28] MEDS ORDERED: BENZOCAINE/MENTHOL AEROSOL SPRAY 56 ML TOP PRN (11:03)
[2019-03-28] MEDS ORDERED: MEASLES,MUMPS&RUBELLA VACC/PF 0.5 ML VIAL SUBCUT PRN (11:03)
[2019-03-28] MEDS ORDERED: OXYTOCIN/NORMAL SALINE 20 UNIT/1,000 ML RTUINJ IV PRN (11:03)
[2019-03-28] MEDS ORDERED: PROMETHAZINE HCL 25 MG SUPP.RECT PR PRN (11:03)
[2019-03-28] MEDS ORDERED: DIPHENHYDRAMINE HCL 25 MG CAPSULE PO PRN (11:03)
[2019-03-28] MEDS ORDERED: ACETAMINOPHEN WITH CODEINE #3 TABLET PO PRN (11:03)
[2019-03-28] MEDS ORDERED: ZOLPIDEM TARTRATE 5 MG TABLET PO PRN (11:03)
--- NOTE | 2019-03-28 12:34 | Delivery Summary ---
Del Sum A-C Datetime Report Generated by CPN: 03/28/2019 12:34 DELIVERY PERSONNEL DELIVERY PERSONNEL: [id number] Delivery Doctor:: Claire Mcbride CNM Labor and Delivery Nurse:: Eladia Mendez RN Marketing Underwriter:: Karlee Leung RN Nursery Nurse:: Priya Conet RN Manager Pe/ACCOUNT SUPERVISOR: Shivani Soto CNA II Manager Pe/ACCOUNT SUPERVISOR: Deborah Patel, CRUSHER PLANT OPERATOR MATERNAL INFORMATION Delivery Anesthesia: Epidural Medications After Delivery: Pitocin Bolus-Please Comment Meds After Delivery Comment: Pitocin 20 unts in 1 L NS bolusing per order Maternal Complications: None Provider Comments: AMI VIABLE MALE WITH SPONTANEOUS CRY. LOOSE NUCHAL CORD-DELIVERED THROUGH. CORD DOUBLE CLAMPED AND CUT. SPONTANEOUS INTACT PLACENTA WITH 3VC. NO LACERATIONS. MOTHER AND STABLE IN L_D #2. LABOR SUMMARY EDC: 04/05/2019 00:00 No. Babies in Womb: 1 Attempted: No Labor Anesthesia: Epidural LABOR INFORMATION Reason for Induction: Not Applicable Onset of Labor: 03/28/2019 04:00 Complete Dilatation: 03/28/2019 10:20 Oxytocin: N/A Group B Beta Strep: positive Antibiotics # of Doses: 2 Antibiotics Time of Last Dose: 1002 Name of Antibiotic Given: PCN Steroids Given: None Reason Steroids Not Administered: Not Applicable MEMBRANES Membranes Rupture Method: Spontaneous Rupture of Membranes: 03/28/2019 04:15 Length of Rupture (hr): 6.30 Amniotic Fluid Color: Moderate Meconium Amniotic Fluid Amount: Moderate Amniotic Fluid Odor: Normal STAGES OF LABOR Stage 1 hr: 6 Stage 1 min: 20 Stage 2 hr: 0 Stage 2 min: 13 Stage 3 hr: 0 Stage 3 min: 9 Total Time in Labor hr: 6 Total Time in Labor min: 42 VAGINAL DELIVERY Episiotomy: None Laceration #1: None Laceration Extension #1: N/A Laceration Repair: Not Applicable Sponge Count Correct: N/A Sharps Count Correct: N/A CSECTION DELIVERY Primary Indication: N/A Secondary Indication: N/A CSection Incidence: N/A Labor: N/A Elective: N/A CSection Incision: N/A BABY A INFORMATION Infant Delivery Date/Time: 03/28/2019 10:33 Method of Delivery: Vaginal Born in Route : No : N/A Forceps: N/A Vacuum Extraction: N/A Shoulder Dystocia : No PRESENTATION/POSITION BABY A Presentation: Cephalic Cephalic Presentation: Vertex Vertex Position: Right Occipital Anterior Breech Presentation: N/A PLACENTA INFORMATION BABY A Placenta Delivery Time : 03/28/2019 10:42 Placenta Method of Delivery: Spontaneous Placenta Status: Delivered SCORES BABY A Heart Rate 1 min: >100 bpm Resp Effort 1 min: Good Cry Reflex Irritability 1 min: Cough or Sneeze or Pulls Away Muscle Tone 1 min: Active Motion Color 1 min: Blue/Pale Resuscitation Effort 1 min: Tactile Stimulation SCORE 1 MIN: 8 Heart Rate 5 min: >100 bpm Resp Effort 5 min: Good Cry Reflex Irritability 5 min: Cough or Sneeze or Pulls Away Muscle Tone 5 min: Active Motion Color 5 min: Body [place], Extremities Blue Resuscitation Effort 5 min: Tactile Stimulation SCORE 5 MIN: 9 INFORMATION BABY A Gestational Age at Delivery: 38.6 Gestational Status: Early Term- 37- 38.6 Weeks Infant Outcome : Liveborn Infant Condition : Stable Infant Sex: Male IDENTIFICATION BABY A Infant Verification Date/Time: 03/28/2019 11:00 ID Band Number: [id number] Mother's Name Verified: Yes RN Verifying : C CLEM, RN/ KAREN URRUTIA, RN WEIGHT/LENGTH BABY A Infant Birthweight (gm): 3286 Infant Weight (lb): 7 Infant Weight (oz): 4 Length (in): 19.75 Infant Length (cm): 50.17 CORD INFORMATION BABY A No. Cord Vessels: 3 Nuchal Cord : Around Neck x1, Loose Cord Blood Taken: Yes-For Eval (Mom's Blood Type - or O+) Infant Suction: Mouth ASSESSMENT BABY A Complications: Meconium Physical Findings at Delivery: Within Normal Limits Respirations: Appears Normal Skin to Skin: Yes Care By: H.Inés, RN Transferred To: Remains with Mother BABY B INFORMATION : N/A SIGNATURES Assignment: Josephine Jain MD Signature: with User ID: [email or web address] : with User ID: [email or web address] : I was personally available for consultation and serving as supervising physician for the MLP.
[2019-03-28] MEDS ORDERED: IBUPROFEN 800 MG TABLET ONE (12:45)
[2019-03-28] MEDS: IBUPROFEN 800 MG TABLET PO SCH ×2 (12:46→21:41)
[2019-03-28] MEDS: FERROUS SULFATE 325 MG TABLET PO SCH (17:16)
[2019-03-28] MEDS: DOCUSATE SODIUM 100 MG CAPSULE PO SCH (17:16)
[2019-03-28] MEDS: ACETAMINOPHEN WITH CODEINE #3 TABLET PO PRN (17:49)
[2019-03-28] MEDS: FAMOTIDINE 20 MG TABLET PO SCH (21:41)
[2019-03-29] MEDS: IBUPROFEN 800 MG TABLET PO SCH ×3 (06:12→22:56)
[2019-03-29 08:03] LABS: ABSOLUTE EOSINOPHILS # (AUTO) 0.2 10^3/uL (0.0-0.6); ABSOLUTE LYMPHOCYTES (AUTO) 2.2 10^3/uL (0.5-4.7); ABSOLUTE MONOCYTES (AUTO) 0.8 10^3/uL (0.1-1.4); ABSOLUTE NEUT (AUTO) 5.6 10^3/uL (1.7-8.2); BASOPHILS % (AUTO) 0.6 % (0-2); EOSINOPHILS % (AUTO) 1.9 % (0-6); HEMATOCRIT 27.4 % (36.0-47.0); HEMOGLOBIN 9.1 g/dL (12.0-15.5); LYMPHOCYTES % (AUTO) 24.9 % (13-45); MEAN CORPUSCULAR HEMOGLOBIN 24.2 pg (27.0-33.4); MEAN CORPUSCULAR HGB CONC 33.3 g/dL (32.0-36.0); MEAN CORPUSCULAR VOLUME 73 fl (80-97); MONOCYTES % (AUTO) 8.7 % (3-13); PLATELET COUNT 184 10^3/uL (150-450); RED BLOOD COUNT 3.77 10^6/uL (3.72-5.28); RED CELL DISTRIBUTION WIDTH 16.2 % (11.5-14.0); SEGMENTED NEUTROPHILS % (AUTO) 63.9 % (42-78); TOTAL CELLS COUNTED % (AUTO) 100 %; WHITE BLOOD COUNT 8.8 10^3/uL (4.0-10.5)
[2019-03-29] MEDS: DOCUSATE SODIUM 100 MG CAPSULE PO SCH ×2 (09:16→17:36)
[2019-03-29] MEDS: PRENATAL VITAMIN W DHA CAPSULE PO SCH (09:16)
[2019-03-29] MEDS: FERROUS SULFATE 325 MG TABLET PO SCH ×2 (09:16→17:36)
[2019-03-29] MEDS: FAMOTIDINE 20 MG TABLET PO SCH ×2 (09:16→22:55)
[2019-03-29] MEDS: SENNOSIDES/DOCUSATE 8.6-50 MG 1 EACH TABLET PO SCH (09:16)
--- NOTE | 2019-03-29 09:55 | PDOC PROGRESS REPORT ---
Subjective-OB Progress Note for:: 03/29/19 - PP day #1, doing well, O+, Rubella Immune, , doing well, no complaints Physical Exam (OB) Vital Signs: Temp Pulse Resp BP Pulse Ox 97.9 F 57 L 18 104/50 L 99 03/29/19 07:55 03/29/19 07:55 03/29/19 07:55 03/29/19 07:55 03/29/19 07:55 Intake & Output 03/28/19 03/29/19 03/30/19 06:59 06:59 06:59 Intake Total 1150 Balance 1150 Weight 85.4 kg - General General Appearance: Appears well, Alert In distress: None - PIH/Pre-Eclampsia DTR's: 2 + Clonus: Negative Headache: Absent Epigastric Pain: No Visual Changes: No - Lochia Lochia Amount: Small 10-25 ml Lochia Color: Rubra/Red - Abdomen Description: Soft, Round Hernia Present: No Fundal Description: Firm, Midline Fundal Height: u/u - u/2 - Respiratory Respiratory Status: No respiratory distress - Genitourinary Genitourinary Note: voiding - Extremities Upper extremity: Normal inspection Lower extremities: Normal inspection - Neurological Cognition: Normal Orientation: AAOx4 - Psychological Associated symptoms: Normal affect, Normal mood - Skin Skin Temperature: Warm Skin Moisture: Dry Objective-Diagnostic Laboratory: 03/29/19 07:47 03/29/19 03/29/19 06:47 07:47 WBC Cancelled 8.8 RBC Cancelled 3.77 Hgb Cancelled 9.1 L Hct Cancelled 27.4 L MCV Cancelled 73 L MCH Cancelled 24.2 L MCHC Cancelled 33.3 RDW Cancelled 16.2 H Plt Count Cancelled 184 Seg Neutrophils % Cancelled 63.9 Lymphocytes % Cancelled 24.9 Monocytes % Cancelled 8.7 Eosinophils % Cancelled 1.9 Basophils % Cancelled 0.6 Absolute Neutrophils Cancelled 5.6 Absolute Lymphocytes Cancelled 2.2 Absolute Monocytes Cancelled 0.8 Absolute Eosinophils Cancelled 0.2 Absolute Basophils Cancelled 0.0 Assessment and Plan(PN) - Assessment and Plan (1) Anemia, Is this a current diagnosis for this admission?: Yes (2) Carrier of group B Streptococcus Is this a current diagnosis for this admission?: Yes (3) Meconium in amniotic fluid Is this a current diagnosis for this admission?: Yes (4) Spontaneous rupture of amniotic membranes Is this a current diagnosis for this admission?: Yes - Time Spent with Patient Medications reviewed and adjusted accordingly: Yes - Disposition Anticipated Discharge: Home Within: within 24 hours
[2019-03-29] MEDS: TRIAMCINOLONE ACETONIDE 0.5% CREAM 15 GM TP SCH ×2 (14:37→17:37)
[2019-03-30] MEDS: ACETAMINOPHEN WITH CODEINE #3 TABLET PO PRN (02:34)
[2019-03-30] MEDS: IBUPROFEN 800 MG TABLET PO SCH (06:02)
[2019-03-30] MEDS: SENNOSIDES/DOCUSATE 8.6-50 MG 1 EACH TABLET PO SCH (09:09)
[2019-03-30] MEDS: DOCUSATE SODIUM 100 MG CAPSULE PO SCH (09:09)
[2019-03-30] MEDS: FAMOTIDINE 20 MG TABLET PO SCH (09:09)
[2019-03-30] MEDS: TRIAMCINOLONE ACETONIDE 0.5% CREAM 15 GM TP SCH (09:09)
[2019-03-30] MEDS: FERROUS SULFATE 325 MG TABLET PO SCH (09:09)
[2019-03-30] MEDS: PRENATAL VITAMIN W DHA CAPSULE PO SCH (09:09)
[2019-03-30 10:09] VITALS: BP 108/72
--- NOTE | 2019-03-30 11:48 | PDOC DISCHARGE SUMMARY ---
Final Diagnosis Discharge Date: 03/30/19 - Final Diagnosis (1) Anemia affecting in third trimester Is this a current diagnosis for this admission?: Yes (2) Carrier of group B Streptococcus Is this a current diagnosis for this admission?: Yes (3) Meconium in amniotic fluid Is this a current diagnosis for this admission?: Yes (4) Spontaneous rupture of amniotic membranes Is this a current diagnosis for this admission?: Yes (5) Anemia, Is this a current diagnosis for this admission?: Yes Discharge Data - Discharge Medication Prescriptions: Ibuprofen [Motrin 800 mg Tablet] 800 mg PO Q8HP PRN #30 tablet PRN Reason: Abdominal Cramping Docusate Sodium [Colace 100 mg Capsule] 100 mg PO BID #60 capsule Ferrous Sulfate [Feosol 325 mg Tablet] 325 mg PO BID #60 tablet Home Medications: Pnv No.95/Ferrous Fum/Folic AC [ Multivitamin Tablet] 1 tab PO DAILY 11/24/18 Acetaminophen [Tylenol] 1,000 mg PO PRN PRN 02/06/19 Docusate Sodium [Colace 100 mg Capsule] 100 mg PO BID #60 capsule 03/30/19 Ferrous Sulfate [Feosol 325 mg Tablet] 325 mg PO BID #60 tablet 03/30/19 Ibuprofen [Motrin 800 mg Tablet] 800 mg PO Q8HP PRN #30 tablet 03/30/19 Reason(s) for Admission: Onset of Labor Procedures: Ultrasound Intrapartum Procedure(s): Spontaneous Vaginal Delivery - Diagnosis Test Laboratory: Temp Pulse Resp BP Pulse Ox 98.1 F 52 L 16 108/72 99 03/30/19 10:08 03/30/19 10:08 03/30/19 10:08 03/30/19 10:08 03/30/19 10:08 03/28/19 03/28/19 03/29/19 01:08 05:36 06:47 RBC 4.49 Cancelled Hgb 10.7 L Cancelled Hct 32.6 L Cancelled Urine Opiates Screen NEGATIVE 03/29/19 07:47 RBC 3.77 Hgb 9.1 L Hct 27.4 L Urine Opiates Screen - Discharge information/Instructions Discharge Activity: Activity As Tolerated, Balance Activity w/Rest, No Lifting Over 10 Pounds, Pelvic Rest, No tub bath, Walk Frequently Discharge Diet: As Tolerated, Regular Disposition: HOME, SELF-CARE Follow up with: [facility] in: 4, Weeks
== END 2019-03-30 13:25 | disposition home or self-care (01) | DRG 807 ==
LOC: LC 02:50 → LR 05:14 → 2S 12:55
PROVIDERS: ADMIT Student in an Organized Health Care Education/Training Program; ATTEND Student in an Organized Health Care Education/Training Program
PROC: 10E0XZZ Delivery of Products of Conception, External Approach (ICD-10-PCS; principal; 2019-03-28)
DX: O77.0 Labor and delivery complicated by meconium in amniotic fluid (principal); Z37.0 Single live birth; O99.824 Streptococcus B carrier state complicating childbirth; O69.81X0 Labor and delivery complicated by cord around neck, without compression, not applicable or unspecified; O99.02 Anemia complicating childbirth; D64.9 Anemia, unspecified; Z3A.38 38 weeks gestation of pregnancy
CPT/HCPCS: 36415; 80307; 81005; 84112; 85025; 86592; 86850; 86900; 86901; 87070; 94760; J2540; J2590; J3010; J3490; J7060

== ENCOUNTER 2019-09-23 09:33 | Emergency (ER) | payer SELFPAY ==
--- NOTE | 2019-09-23 11:18 | ER Document Report ---
ED Neuro Symptoms/Deficit - General Chief Complaint: Numbness Stated Complaint: BACK PAIN, CHEST PAIN Time Seen by Provider: 09/23/19 11:06 Mode of Arrival: Ambulatory Information source: Patient TRAVEL OUTSIDE OF THE [place] IN LAST 30 DAYS: No - HPI Patient complains to provider of: Other - Pt. with c/o 4-5 day h/o numbness from the waist down. Denies weakness of legs. Denies trauma. Normal urination/defecation. - Related Data Allergies/Adverse Reactions: ceftriaxone [From Rocephin] Allergy (Verified 03/28/19 04:43) sulfamethoxazole [From Bactrim] Allergy (Verified 03/28/19 04:43) trimethoprim [From Bactrim] Allergy (Verified 03/28/19 04:43) Home Medications: 800mg ibuprofen Past Medical History - General Information source: Patient - Social History Smoking Status: Unknown if Ever Smoked Family History: Reviewed & Not Pertinent Patient has suicidal ideation: No Patient has homicidal ideation: No Pulmonary Medical History: Reports: Hx Asthma Renal/ Medical History: Denies: Hx Peritoneal Dialysis Musculoskeletal Medical History: Reports Hx Musculoskeletal Trauma Skin Medical History: Reports Hx Cellulitis, Reports Hx Eczema Psychiatric Medical History: Denies: Hx Depression Past Surgical History: Reports: Hx Orthopedic Surgery - COCCYX, Other - Pilonidal cyst removed - Immunizations Hx Diphtheria, Pertussis, Tetanus Vaccination: Yes Review of Systems - Review of Systems Constitutional: No symptoms reported EENT: No symptoms reported Cardiovascular: No symptoms reported Respiratory: No symptoms reported Gastrointestinal: No symptoms reported Musculoskeletal: No symptoms reported Neurological/Psychological: See HPI, Numbness -: Yes All other systems reviewed and negative Physical Exam - Vital signs Vitals: Temp Pulse Resp BP Pulse Ox 98 F 95 18 114/66 98 09/23/19 09:41 09/23/19 09:41 09/23/19 09:41 09/23/19 09:41 09/23/19 09:41 - General General appearance: Appears well In distress: None - Respiratory Respiratory status: No respiratory distress Breath sounds: Normal - Cardiovascular Rhythm: Regular Heart sounds: Normal auscultation Murmur: No - Abdominal Inspection: Normal Distension: No distension Bowel sounds: Normal Tenderness: Nontender Organomegaly: No organomegaly - Back Back: Normal, Nontender - Extremities General lower extremity: Other - evaluation of the R foot reveals a scaly rash with several excoriated areas and minimal erythema. There is FROM and is N/V intact. 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 tacker Sensory: Normal Course - Re-evaluation Re-evalutation: 09/23/19 12:24 pt's exam unchanged from priors -- expressed desire to go home - Vital Signs Vital signs: Temp Pulse Resp BP Pulse Ox 98 F 95 18 114/66 98 09/23/19 09:41 09/23/19 09:41 09/23/19 09:41 09/23/19 09:41 09/23/19 09:41 - Laboratory Result Diagrams: 09/23/19 11:30 09/23/19 11:30 Laboratory results interpreted by me: 09/23/19 09/23/19 09/23/19 11:30 11:30 11:41 MCH 26.7 L RDW 15.5 H Glucose 70 L Calcium 10.3 H Urine Urobilinogen 2.0 H Discharge - Discharge Clinical Impression: Numbness Cellulitis Qualifiers: Site of cellulitis: extremity Site of cellulitis of extremity: lower extremity Laterality: left Qualified Code(s): L03.116 - Cellulitis of left lower limb Condition: Stable Disposition: HOME, SELF-CARE Additional Instructions: rest, take meds as prescribed, return if worse Prescriptions: Doxycycline Hyclate 100 mg PO BID #14 capsule Methylprednisolone [Medrol Dosepack (4 mg/Tab) 21 Tab/Dosepak] 21 tab PO ASDIR PRN #1 dspk PRN Reason: Referrals: ABBY LIMON MD [ACTIVE STAFF] - Follow up as needed
[2019-09-23 11:44] LABS: ABSOLUTE BASOPHILS # (AUTO) 0.1 10^3/uL (0.0-0.2); ABSOLUTE EOSINOPHILS # (AUTO) 0.2 10^3/uL (0.0-0.6); ABSOLUTE MONOCYTES (AUTO) 0.4 10^3/uL (0.1-1.4); ABSOLUTE NEUT (AUTO) 2.9 10^3/uL (1.7-8.2); BASOPHILS % (AUTO) 0.9 % (0-2); EOSINOPHILS % (AUTO) 3.9 % (0-6); HEMATOCRIT 38.1 % (36.0-47.0); HEMOGLOBIN 12.8 g/dL (12.0-15.5); LYMPHOCYTES % (AUTO) 35.9 % (13-45); MEAN CORPUSCULAR HEMOGLOBIN 26.7 pg (27.0-33.4); MEAN CORPUSCULAR HGB CONC 33.5 g/dL (32.0-36.0); MEAN CORPUSCULAR VOLUME 80 fl (80-97); PLATELET COUNT 283 10^3/uL (150-450); RED BLOOD COUNT 4.79 10^6/uL (3.72-5.28); RED CELL DISTRIBUTION WIDTH 15.5 % (11.5-14.0); SEGMENTED NEUTROPHILS % (AUTO) 52.3 % (42-78); TOTAL CELLS COUNTED % (AUTO) 100 %; WHITE BLOOD COUNT 5.6 10^3/uL (4.0-10.5)
[2019-09-23 11:57] LABS: APPEARANCE,URINE SLIGHTLY-CLOUDY; BILIRUBIN,URINE NEGATIVE (NEGATIVE); COLOR,URINE YELLOW; GLUCOSE, URINE NEGATIVE (NEGATIVE); KETONES,URINE NEGATIVE (NEGATIVE); LEUKOCYTE ESTERASE,URINE NEGATIVE (NEGATIVE); NITRITE,URINE NEGATIVE (NEGATIVE); PROTEIN,URINE NEGATIVE (NEGATIVE); URINE SPECIFIC GRAVITY 1.013
[2019-09-23 12:01] LABS: ALBUMIN 4.4 g/dL (3.5-5.0); ALKALINE PHOSPHATASE 67 U/L (38-126); ANION GAP 8 (5-19); ASPARTATE AMINO TRANSFERASE 16 U/L (14-36); BILIRUBIN,DIRECT 0.1 mg/dL (0.0-0.4); BILIRUBIN,TOTAL 0.3 mg/dL (0.2-1.3); BLOOD UREA NITROGEN 9 mg/dL (7-20); CALCIUM 10.3 mg/dL (8.4-10.2); CARBON DIOXIDE 26 mmol/L (22-30); CHLORIDE 106 mmol/L (98-107); GLUCOSE 70 mg/dL (75-110); POTASSIUM 4.3 mmol/L (3.6-5.0); TOTAL PROTEIN 7.8 g/dL (6.3-8.2)
[2019-09-23 12:14] LABS: URINE AMPHETAMINES SCREEN NEGATIVE; URINE BARBITURATES SCREEN NEGATIVE; URINE BENZODIAZEPINES SCREEN NEGATIVE; URINE COCAINE SCREEN NEGATIVE; URINE MARIJUANA (THC) SCREEN NEGATIVE; URINE METHADONE SCREEN NEGATIVE; URINE PHENCYCLIDINE SCREEN NEGATIVE
[2019-09-23 13:08] VITALS: BP 105/67
== END 2019-09-23 13:08 | disposition home or self-care (01) ==
LOC: ER 09:33
DX: R20.0 Anesthesia of skin (principal); L03.116 Cellulitis of left lower limb; J45.909 Unspecified asthma, uncomplicated; Z79.1 Long term (current) use of non-steroidal anti-inflammatories (NSAID); Z88.1 Allergy status to other antibiotic agents
CPT/HCPCS: 36415; 80053; 80307; 81001; 81025; 85025; 99283

== ENCOUNTER 2020-08-22 04:38 | Emergency (ER) | payer MEDICAID ==
--- NOTE | 2020-08-22 05:06 | ER Document Report ---
ED General - General Chief Complaint: Hand Pain Stated Complaint: POSSIBLE INJURY TO RIGHT MIDDLE FINGER Time Seen by Provider: 08/22/20 04:53 TRAVEL OUTSIDE OF THE [place] IN LAST 30 DAYS: No - HPI Patient complains to provider of: finger pain Notes: 25 y/o w/ right middle finger redness and pain ongoing for 2-3 days it started off as eczema like reaction w/ primarily itching about 10 days ago she used triamcinolone cream for 3 days and notes no improvement then the area began to hurt and she states it has drainaged no fever/chills denies h/o diabetes or other difficulties w/ fighting infections denies inability to flex/extend finger denies injury to the finger - Related Data Allergies/Adverse Reactions: ceftriaxone [From Rocephin] Allergy (Verified 03/28/19 04:43) sulfamethoxazole [From Bactrim] Allergy (Verified 03/28/19 04:43) trimethoprim [From Bactrim] Allergy (Verified 03/28/19 04:43) Past Medical History - Social History Smoking Status: Never Smoker Chew tobacco use (# tins/day): No Frequency of alcohol use: None Drug Abuse: None Family History: Reviewed & Not Pertinent Patient has homicidal ideation: No Pulmonary Medical History: Reports: Hx Asthma Renal/ Medical History: Denies: Hx Peritoneal Dialysis Musculoskeletal Medical History: Reports Hx Musculoskeletal Trauma Skin Medical History: Reports Hx Cellulitis, Reports Hx Eczema Psychiatric Medical History: Denies: Hx Depression Past Surgical History: Reports: Hx Orthopedic Surgery - COCCYX, Other - Pilonidal cyst removed - Immunizations Hx Diphtheria, Pertussis, Tetanus Vaccination: Yes Review of Systems - Review of Systems Constitutional: No symptoms reported EENT: No symptoms reported Cardiovascular: No symptoms reported Respiratory: No symptoms reported Gastrointestinal: No symptoms reported Genitourinary: No symptoms reported Female Genitourinary: No symptoms reported Musculoskeletal: No symptoms reported Skin: Rash Hematologic/Lymphatic: No symptoms reported Neurological/Psychological: No symptoms reported Physical Exam - Vital signs Vitals: Temp Pulse Resp BP Pulse Ox 97.8 F 83 18 112/77 99 08/22/20 04:48 08/22/20 04:48 08/22/20 04:48 08/22/20 04:48 08/22/20 04:48 Interpretation: Normal - General General appearance: Appears well, Alert - HEENT Head: Normocephalic, Atraumatic Eyes: Normal Pupils: PERRL - Respiratory Respiratory status: No respiratory distress Chest status: Nontender Breath sounds: Normal Chest palpation: Normal - Cardiovascular Rhythm: Regular Heart sounds: Normal auscultation Murmur: No - Abdominal Inspection: Normal Distension: No distension Bowel sounds: Normal Tenderness: Nontender Organomegaly: No organomegaly - Back Back: Normal, Nontender - Extremities General upper extremity: Normal inspection, Nontender, Normal color, Normal ROM, Normal temperature General lower extremity: Normal inspection, Nontender, Normal color, Normal ROM, Normal temperature, Normal weight bearing. No: Gilson's sign - Neurological Neuro grossly intact: Yes Cognition: Normal Orientation: AAOx4 [place] Coma Scale Eye Opening: Spontaneous [place] Coma Scale Verbal: Oriented Raj Coma Scale Motor: Obeys Commands [place] Coma Scale Total: 15 Speech: Normal Motor strength normal: LUE, RUE, LLE, RLE Sensory: Normal - Psychological Associated symptoms: Normal affect, Normal mood - Skin Skin Temperature: Warm Skin Moisture: Dry Skin Color: Normal Notes: right middle finger on dorsal aspect has erythematous skin w/ mild swelling. no drainage. normal cap refill at nail bed. normal range of motion at each IP and MCP joints Course - Re-evaluation Re-evalutation: 08/22/20 05:02 likely has an eczema type flare that now has superimposed cellulitis will treat w/ abx as outpt and have reviewed local wound care for the irritated skin present - Vital Signs Vital signs: Temp Pulse Resp BP Pulse Ox 97.8 F 83 18 112/77 99 08/22/20 04:48 08/22/20 04:48 08/22/20 04:48 08/22/20 04:48 08/22/20 04:48 Discharge - Discharge Clinical Impression: Cellulitis, finger Qualifiers: Laterality: right Qualified Code(s): L03.011 - Cellulitis of right finger Condition: Stable Disposition: HOME, SELF-CARE Instructions: Cellulitis ([facility]) Additional Instructions: please take the antibiotic clindamycin as directed (your chart indicates you are allergic to bactrim so we did not prescribe this one) I also recommend you apply a vaseline based antibiotic appointment over the irritated skin to help moisturize the area and help treat any infection that is present Return to the ED with worsening symptoms or concerns if this does not improve with antibiotics, I have given you contact information for a local orthopedic to call for follow up for specialist evaluation Prescriptions: Clindamycin HCl 300 mg PO Q6 #28 capsule Referrals: LILIBETH SCOTT DO [ACTIVE STAFF] - Follow up as needed
[2020-08-22 05:27] VITALS: BP 123/82
== END 2020-08-22 05:27 | disposition home or self-care (01) ==
LOC: ER 04:38
DX: L03.011 Cellulitis of right finger (principal); M79.644 Pain in right finger(s); Z88.2 Allergy status to sulfonamides; Z88.8 Allergy status to other drugs, medicaments and biological substances; J45.909 Unspecified asthma, uncomplicated
CPT/HCPCS: 99283

== ENCOUNTER 2020-09-10 15:38 | Emergency (ER) | payer MEDICAID ==
[2020-09-10 15:46] VITALS: BP 113/70
--- NOTE | 2020-09-10 15:50 | ER Document Report ---
HPI - HPI Patient complains to provider of: Rash Time Seen by Provider: 09/10/20 15:45 Pain Level: 0 Notes: 25-year-old female to the emergency department with complaints of a scaling rash to the back of her right middle finger. She states this has been ongoing for over a month. She works as a [employer] and she is often washing her hands. She states she was using some Kenalog cream on it and it seemed to get a little bit better but now is gotten worse. She admits that she has been washing it some with hydrogen peroxide and the skin just seems to come to be flaking off. She denies any fevers or chills. She denies any change in range of motion. She does admit to a history of eczema. Denies any other complaints. - ROS Systems Reviewed and Negative: Yes All other systems reviewed and negative - CONSTITUTIONAL Constitutional: DENIES: Fever, Chills - EENT EENT: DENIES: Sore Throat, Ear Pain - NEURO Neurology: DENIES: Headache - CARDIOVASCULAR Cardiovascular: REPORTS: Chest pain - RESPIRATORY Respiratory: DENIES: Trouble Breathing, Coughing - GASTROINTESTINAL Gastrointestinal: DENIES: Abdominal Pain, Nausea, Patient vomiting - MUSCULOSKELETAL Musculoskeletal: DENIES: Extremity pain - DERM Skin Color: Normal Skin Problems: Rash - See HPI Past Medical History - General Information source: Patient - Social History Smoking Status: Never Smoker Frequency of alcohol use: None Drug Abuse: None Family History: Reviewed & Not Pertinent Pulmonary Medical History: Reports: Hx Asthma Renal/ Medical History: Denies: Hx Peritoneal Dialysis Musculoskeletal Medical History: Reports Hx Musculoskeletal Trauma Skin Medical History: Reports Hx Cellulitis, Reports Hx Eczema Psychiatric Medical History: Denies: Hx Depression Past Surgical History: Reports: Hx Orthopedic Surgery - COCCYX, Other - Pilonidal cyst removed - Immunizations Hx Diphtheria, Pertussis, Tetanus Vaccination: Yes Vertical Provider Document - CONSTITUTIONAL Agree With Documented VS: Yes Exam Limitations: No Limitations General Appearance: WD/WN, No Apparent Distress - INFECTION CONTROL TRAVEL OUTSIDE OF THE [place] IN LAST 30 DAYS: No - HEENT HEENT: Atraumatic, Normocephalic, PERRLA - NECK Neck: Normal Inspection, Supple - RESPIRATORY Respiratory: Breath Sounds Normal, No Respiratory Distress. negative: Rales, Rhonchi, Wheezing - CARDIOVASCULAR Cardiovascular: Regular Rate, Regular Rhythm, No Murmur - GI/ABDOMEN Gastrointestinal: Abdomen Soft, Abdomen Non-Tender, No Organomegaly - BACK Back: Normal Inspection - MUSCULOSKELETAL/EXTREMETIES Musculoskeletal/Extremeties: PORFIRIO FROM, Non-Tender Notes: See skin for further discussion of finger rash - NEURO Level of Consciousness: Awake, Alert, Appropriate Motor/Sensory: No Motor Deficit, No Sensory Deficit - DERM Integumentary: Warm, Rash - There is a rash to the dorsum of the right middle finger. It is scaling and mildly edematous. There is no evidence for superimposed infection. It is most consistent with a dyshidrotic eczema Course - Re-evaluation Re-evalutation: Impression: Dyshidrotic eczema. I have encouraged the patient to try to keep her hands as dry as possible. We will sent home with an oral round of steroids because this is been going on for so long. And then she will start on topical steroids. I have encouraged her to follow-up with entry specialist. Patient agrees with the plan. Encouraged to return if any worsening symptoms. - Vital Signs Vital signs: Temp Pulse Resp BP Pulse Ox 98.5 F 78 16 113/70 100 09/10/20 15:43 09/10/20 15:43 09/10/20 15:43 09/10/20 15:43 09/10/20 15:43 Discharge - Discharge Clinical Impression: Eczema, dyshidrotic Condition: Stable Disposition: HOME, SELF-CARE Instructions: Atopic Dermatitis (Eczema) ([facility]) Additional Instructions: Dress finger with nonadhesive dressing. Take all steroids and then start to use oral steroids. Follow up with entry specialist if rash does not improve. you may apply aquaphor to the skin as well. Prescriptions: Prednisone [Deltasone 10 mg Tablet] 10 mg PO ASDIR PRN #21 tablet PRN Reason: Hydrocortisone [Hydrocortisone 1% Cream 28.35 Gm] 1 applic TP BID #1 tube Referrals: BERTRAM HOWELL DO [ACTIVE STAFF] - Follow up in 1 week (for dermatology follow up)
== END 2020-09-10 15:54 | disposition home or self-care (01) ==
LOC: ER 15:38
DX: L30.1 Dyshidrosis [pompholyx] (principal); J45.909 Unspecified asthma, uncomplicated
CPT/HCPCS: 99283

== ENCOUNTER 2020-12-20 21:21 | Emergency (ER) | payer MEDICAID ==
--- NOTE | 2020-12-20 22:11 | ER Document Report ---
ED Medical Screen (RME) - General Chief Complaint: Chest Pain Stated Complaint: CHEST PAIN, VAGINAL BLEEDING, DIZZINESS Time Seen by Provider: 12/20/20 22:05 Mode of Arrival: Ambulatory Information source: Patient Notes: 25-year-old female patient presenting to the emergency department concern for heavy vaginal bleeding. Patient reports her last normal menstrual cycle was in the beginning of November. She states 1 week ago she started bleeding vaginally and is passing clots. Patient reports the clots are smaller than the size of a dime. Patient is concerned that she is losing too much blood. She denies any episodes of syncope. She is requesting a test. Patient appears well, nontoxic, skin warm pink dry, no acute distress noted. I have greeted and performed a rapid initial assessment of this patient. A comprehensive ED assessment and evaluation of the patient, analysis of test results and completion of the medical decision making process will be conducted by additional ED providers. I have specifically instructed the patient or family members with the patient to immediately return to any nursing staff should anything change in the patient's condition or with their chief complaint. TRAVEL OUTSIDE OF THE [place] IN LAST 30 DAYS: No - Related Data Allergies/Adverse Reactions: ceftriaxone [From Rocephin] Allergy (Verified 03/28/19 04:43) sulfamethoxazole [From Bactrim] Allergy (Verified 03/28/19 04:43) trimethoprim [From Bactrim] Allergy (Verified 03/28/19 04:43) Past Medical History Pulmonary Medical History: Reports: Hx Asthma Renal/ Medical History: Denies: Hx Peritoneal Dialysis Musculoskeltal Medical History: Reports Hx Musculoskeletal Trauma Skin Medical History: Reports Hx Cellulitis, Reports Hx Eczema Psychiatric Medical History: Denies: Hx Depression Past Surgical History: Reports: Hx Orthopedic Surgery - COCCYX, Other - Pilonidal cyst removed - Immunizations Hx Diphtheria, Pertussis, Tetanus Vaccination: Yes Physical Exam - Vital signs Vitals: Temp Pulse Resp BP Pulse Ox 97.6 F 72 16 132/74 H 100 12/20/20 21:35 12/20/20 21:35 12/20/20 21:35 12/20/20 21:35 12/20/20 21:35 Course - Vital Signs Vital signs: Temp Pulse Resp BP Pulse Ox 97.6 F 72 16 132/74 H 100 12/20/20 21:35 12/20/20 21:35 12/20/20 21:35 12/20/20 21:35 12/20/20 21:35
[2020-12-20 22:57] LABS: ABSOLUTE BASOPHILS # (AUTO) 0.1 10^3/uL (0.0-0.2); ABSOLUTE EOSINOPHILS # (AUTO) 0.5 10^3/uL (0.0-0.6); ABSOLUTE LYMPHOCYTES (AUTO) 3.9 10^3/uL (0.5-4.7); ABSOLUTE MONOCYTES (AUTO) 0.4 10^3/uL (0.1-1.4); BASOPHILS % (AUTO) 0.6 % (0-2); HEMATOCRIT 34.1 % (36.0-47.0); HEMOGLOBIN 11.2 g/dL (12.0-15.5); LYMPHOCYTES % (AUTO) 43.8 % (13-45); MEAN CORPUSCULAR HEMOGLOBIN 25.2 pg (27.0-33.4); MEAN CORPUSCULAR VOLUME 76 fl (80-97); MONOCYTES % (AUTO) 4.7 % (3-13); PLATELET COUNT 230 10^3/uL (150-450); RED BLOOD COUNT 4.47 10^6/uL (3.72-5.28); RED CELL DISTRIBUTION WIDTH 15.9 % (11.5-14.0); SEGMENTED NEUTROPHILS % (AUTO) 44.9 % (42-78); TOTAL CELLS COUNTED % (AUTO) 100 %; WHITE BLOOD COUNT 8.9 10^3/uL (4.0-10.5)
[2020-12-20 23:11] LABS: APPEARANCE,URINE CLEAR; BILIRUBIN,URINE NEGATIVE (NEGATIVE); COLOR,URINE YELLOW; GLUCOSE, URINE NEGATIVE (NEGATIVE); KETONES,URINE NEGATIVE (NEGATIVE); LEUKOCYTE ESTERASE,URINE NEGATIVE (NEGATIVE); NITRITE,URINE NEGATIVE (NEGATIVE); PROTEIN,URINE NEGATIVE (NEGATIVE); URINE SPECIFIC GRAVITY 1.016; UROBILINOGEN,URINE NEGATIVE mg/dL (<2.0)
[2020-12-20 23:17] LABS: ALBUMIN 4.1 g/dL (3.5-5.0); ALKALINE PHOSPHATASE 61 U/L (38-126); ANION GAP 8 (5-19); ASPARTATE AMINO TRANSFERASE 18 U/L (14-36); BILIRUBIN,DIRECT 0.2 mg/dL (0.0-0.4); BILIRUBIN,TOTAL 0.2 mg/dL (0.2-1.3); BLOOD UREA NITROGEN 9 mg/dL (7-20); CALCIUM 9.7 mg/dL (8.4-10.2); CARBON DIOXIDE 29 mmol/L (22-30); CHLORIDE 102 mmol/L (98-107); GLUCOSE 93 mg/dL (75-110); POTASSIUM 4.2 mmol/L (3.6-5.0)
--- NOTE | 2020-12-21 01:16 | ER Document Report ---
ED GI/ - General Chief Complaint: Vaginal Bleeding Stated Complaint: CHEST PAIN, VAGINAL BLEEDING, DIZZINESS Time Seen by Provider: 12/20/20 22:05 Primary Care Provider: BURT MOSCOSO MD [ACTIVE STAFF] - Follow up tomorrow (Call tomorrow for an outpatient follow-up appointment) Mode of Arrival: Ambulatory Notes: 25-year-old female past medical history significant for MS presents to the ergency room complaining of heavy vaginal bleeding with clots for the past week. States that she is going through about 4 pads per day. States that is her second menstrual cycle this month. Denies any nausea, vomiting. Mild abdominal cramping. Also states earlier this evening she had one episode of chest pain that only lasted for a few seconds midsternal sharp. States she thinks it is "my anxiety". States it only lasted a few seconds and went away without intervention. No cardiac history. No family cardiac history. TRAVEL OUTSIDE OF THE [place] IN LAST 30 DAYS: No - Related Data Allergies/Adverse Reactions: ceftriaxone [From Rocephin] Allergy (Verified 03/28/19 04:43) sulfamethoxazole [From Bactrim] Allergy (Verified 03/28/19 04:43) trimethoprim [From Bactrim] Allergy (Verified 03/28/19 04:43) Past Medical History - General Information source: Patient - Social History Smoking Status: Never Smoker Frequency of alcohol use: None Drug Abuse: None Family History: Reviewed & Not Pertinent Pulmonary Medical History: Reports: Hx Asthma Renal/ Medical History: Denies: Hx Peritoneal Dialysis Musculoskeletal Medical History: Reports Hx Musculoskeletal Trauma Skin Medical History: Reports Hx Cellulitis, Reports Hx Eczema Psychiatric Medical History: Denies: Hx Depression Past Surgical History: Reports: Hx Orthopedic Surgery - COCCYX, Other - Pilonidal cyst removed - Immunizations Hx Diphtheria, Pertussis, Tetanus Vaccination: Yes Review of Systems - Review of Systems Constitutional: No symptoms reported EENT: No symptoms reported Cardiovascular: Chest pain Respiratory: No symptoms reported Gastrointestinal: No symptoms reported Genitourinary: No symptoms reported Female Genitourinary: Heavy/abnormal periods, Vaginal bleeding Skin: No symptoms reported Neurological/Psychological: No symptoms reported -: Yes All other systems reviewed and negative Physical Exam - Vital signs Vitals: Temp Pulse Resp BP Pulse Ox 97.6 F 72 16 132/74 H 100 12/20/20 21:35 12/20/20 21:35 12/20/20 21:35 12/20/20 21:35 12/20/20 21:35 - General General appearance: Appears well, Alert In distress: Mild - HEENT Head: Normocephalic, Atraumatic Eyes: Normal Pupils: PERRL - Respiratory Respiratory status: No respiratory distress Chest status: Nontender Breath sounds: Normal Chest palpation: Normal - Cardiovascular Rhythm: Regular Heart sounds: Normal auscultation Murmur: No - Back Back: Normal, Nontender. No: CVA tenderness - Neurological Neuro grossly intact: Yes Cognition: Normal Orientation: AAOx4 [place] Coma Scale Eye Opening: Spontaneous Raj Coma Scale Verbal: Oriented [place] Coma Scale Motor: Obeys Commands [place] Coma Scale Total: 15 Speech: Normal Motor strength normal: LUE, RUE, LLE, RLE Sensory: Normal - Skin Skin Temperature: Warm Skin Moisture: Dry Skin Color: Normal Course - Re-evaluation Re-evalutation: 12/21/20 01:32 HEART Score: History 0 ECG 1 Age 0 Risk Factors 0 Troponin 0 Total: 1 Chest pain in a patient without evidence of cardiac or other serious etiology on workup today. I discussed with patient that, based on their age, risk factors and emergency department testing today, the likelihood that their symptoms are related to a heart attack is very low (estimated risk of heart attack or over the next 30 days of less than 1%). The patient demonstrates decision making capacity and has verbalized an understanding of these risks to me. Based on this, the patient has chosen to follow-up as an outpatient. Usual chest pain return precautions reviewed. The patient states understanding and agreement with this plan. 12/21/20 01:34 Reviewed lab results with patient. Will get pelvic ultrasound due to the heavy vaginal bleeding. Patient is agreeable to have an ultrasound. 12/21/20 02:27 Reviewed ultrasound results with patient. Patient refused pelvic exam. Counseled importance of an outpatient follow-up with [facility]. On-call physician will be provided. Patient was given strict return to the emergency room guidelines. Return for any new or worsening symptoms. All questions were answered. Patient verbalized understanding and agrees with plan of care. 12/21/20 02:58 - Vital Signs Vital signs: Temp Pulse Resp BP Pulse Ox 97.6 F 72 16 132/74 H 100 12/20/20 21:35 12/20/20 21:35 12/20/20 21:35 12/20/20 21:35 12/20/20 21:35 - Laboratory Results Result Diagrams: 12/20/20 22:34 12/20/20 22:34 Laboratory Results Interpreted: 12/20/20 12/20/20 22:34 22:34 Hgb 11.2 L Hct 34.1 L MCV 76 L MCH 25.2 L RDW 15.9 H Urine Blood MODERATE H Urine Ascorbic Acid 40 H Critical Laboratory Results Reviewed: No Critical Results - Radiology Results Critical Radiology Results Reviewed: No Critical Results - EKG Interpretation by Ri EKG shows normal: Sinus rhythm When compared to previous EKG there are: No significant change Additional EKG results interpreted by me: 12/21/20 01:30 EKG was interpreted by ER physician Dr. Mallory No acute STEMI Sinus arrhythmia Rate 57-[address] wave abnormalities Unchanged from previous EKG of 12/08/2018 Discharge - Discharge Clinical Impression: Dysfunctional uterine bleeding, Polycystic disease, ovaries Chest pain Qualifiers: Chest pain type: other chest pain Qualified Code(s): R07.89 - Other chest pain; R07.8 - Other chest pain Condition: Stable Disposition: HOME, SELF-CARE Instructions: Dysfunctional Uterine Bleeding ([facility]), Chest Pain of Unclear Cause ([facility]) Additional Instructions: Your ultrasound shows that you could possibly have polycystic ovary disease will cause irregular heavy menstrual cycles. It is important that you call [facility] tomorrow for an outpatient follow-up appointment. Avoid any anti-inflammatories such as Advil, Motrin, ibuprofen. Return to the emergency room for any new or worsening symptoms. Referrals: BURT MOSCOSO MD [ACTIVE STAFF] - Follow up tomorrow (Call tomorrow for an outpatient follow-up appointment)
--- NOTE | 2020-12-21 02:23 | RADIOLOGY REPORT (SQ) ---
Ultrasound pelvis transvaginal on 12/21/2020 at 1:32 AM CLINICAL INDICATION: Vaginal bleeding COMPARISON: None FINDINGS: Multiple sonographic images are obtained throughout the pelvis by transvaginal approach, both transverse and sagittal images are obtained. The uterus is retroverted/retroflexed. The uterus measures approximately 7.7 x 3.8 x 4.8 cm. Endometrial stripe measures 1.2 cm which is within normal limits. Uterine myometrium appears homogeneous. The right ovary measures approximately 4.3 x 1.7 x 2.4 cm. Flow is demonstrated in the right ovary. Left ovary measures approximately 3.4 x 2.4 x 2.6 cm. Flow is demonstrated in the left ovary. There are relatively similar sized peripheral follicles in each ovary raising a question of changes of polycystic ovarian disease. No adnexal mass or fluid collection is noted. No free fluid is noted. IMPRESSION: Appearance of the bilateral ovaries raises a question of polycystic ovarian disease, otherwise essentially unremarkable.
[2020-12-21 03:11] VITALS: BP 115/77
--- NOTE | 2020-12-21 09:55 | EKG REPORT ---
SEVERITY:- OTHERWISE NORMAL ECG - SINUS ARRHYTHMIA, RATE [id number] : Confirmed by: Prasanna Lam MD 21-Dec-2020 09:55:05
== END 2020-12-21 03:12 | disposition home or self-care (01) ==
LOC: ER 21:21
DX: E28.2 Polycystic ovarian syndrome (principal); N92.0 Excessive and frequent menstruation with regular cycle; N93.8 Other specified abnormal uterine and vaginal bleeding; R07.9 Chest pain, unspecified; J45.909 Unspecified asthma, uncomplicated; Z88.1 Allergy status to other antibiotic agents
CPT/HCPCS: 36415; 76830; 80053; 81001; 84484; 84703; 85025; 93005; 93010; 93976; 99285